=== PATIENT | male | born 1960 | race Caucasian/White ===

== ENCOUNTER → 2017-03-02 | Outpatient (CLI) | payer BC ==
[~2017-03-02] MED LIST: FLUV1INJ6 IM; PARO20TA3 PO; RISP1SS PO; XANA0.25 PO
[2017-03-02 14:48] LABS: ALBUMIN 3.7 GM/DL (3.2-5.2); ALBUMIN/GLOBULIN RATIO 1.32 (1.00-1.93); ALKALINE PHOSPHATASE 75 U/L (45-117); ALT/SGPT 24 U/L (12-78); ANION GAP 5 MEQ/L (8-16); AST/SGOT 18 U/L (15-37); BILIRUBIN,TOTAL 0.6 MG/DL (0.2-1.0); BLOOD UREA NITROGEN 8 MG/DL (7-18); CALCIUM LEVEL 8.8 MG/DL (8.5-10.1); CARBON DIOXIDE LEVEL 32 MEQ/L (21-32); CHLORIDE LEVEL 104 MEQ/L (98-107); CHOLESTEROL LEVEL 193 MG/DL (<200); CREATININE FOR GFR 1.08 MG/DL (0.70-1.30); FREE T4 0.95 NG/DL (0.76-1.46); GLOMERULAR FILTRATION RATE > 60.0 (>56); GLUCOSE, FASTING 96 MG/DL (70-105); POTASSIUM SERUM 4.6 MEQ/L (3.5-5.1); SODIUM LEVEL 141 MEQ/L (136-145); TOTAL PROTEIN 6.5 GM/DL (6.4-8.2); TRIGLYCERIDES LEVEL 122 MG/DL (<150)
== END ==
LOC: M LRY 09:30
PROVIDERS: ATTEND Physician Assistant
DX: Z13.220 Encounter for screening for lipoid disorders (principal); Z13.1 Encounter for screening for diabetes mellitus

== ENCOUNTER → 2017-07-24 | Outpatient (CLI) | payer BC ==
[2017-07-24 17:40] LABS: URIC ACID 3.2 MG/DL (3.5-7.2)
[2017-07-24 17:40] LABS: C REACTIVE PROTEIN QUANTITATIV 0.38 MG/DL (0.00-0.30)
[2017-07-24 18:37] LABS: ERYTHROCYTE SEDIMENTATION RATE 18 mm/hr (0-20)
[2017-07-27 00:06] LABS: Lyme Disease IgG/IgM Antibodie <0.91 ISR (0.00-0.90); Lyme Disease IgM Ab Quantitati <0.80 index (0.00-0.79)
== END ==
LOC: M SMT 14:19
DX: M79.674 Pain in right toe(s) (principal)
CPT/HCPCS: 84550

== ENCOUNTER → 2017-08-12 | Outpatient (CLI) | payer BC ==
[2017-08-12 11:16] LABS: RHEUMATOID FACTOR QUANT 70.3 IU/ML (<15.0)
[2017-08-13 14:13] LABS: ANTINUCLEAR ANTIBODIES DIRECT Negative (Negative)
== END ==
LOC: M SMT 09:13
DX: M25.50 Pain in unspecified joint (principal); M25.40 Effusion, unspecified joint
CPT/HCPCS: 36415

== ENCOUNTER → 2017-12-20 | Outpatient (CLI) | payer BC ==
[2017-12-20 16:41] LABS: BASO # 0.1 10^3/uL (0.0-0.2); BASO % 0.7 % (0.0-1.0); EOS # 0.5 10^3/uL (0.0-0.50); EOS % 6.6 % (0.0-3.0); HEMATOCRIT 37.5 % (42.0-52.0); HEMOGLOBIN 12.7 g/dl (13.5-17.5); IMMATURE GRANULOCYTE % 0.1 % (0-3.0); LYMPH # 1.9 10^3/uL (1.5-4.5); MEAN CORPUSCULAR HEMOGLOBIN 32.2 pg (27.0-33.0); MEAN CORPUSCULAR HGB CONC 33.9 g/dl (32.0-36.5); MEAN CORPUSCULAR VOLUME 94.9 fl (80.0-96.0); MONO # 0.5 10^3/uL (0.0-0.8); MONO % 7.3 % (0.0-5.0); NEUTROPHILS # 4.2 10^3/uL (1.8-7.7); NEUTROPHILS % 59.3 % (36.0-66.0); PLATELET COUNT, AUTOMATED 194 10^3/uL (150-450); RED BLOOD COUNT 3.95 10^6/uL (4.30-6.10); RED CELL DISTRIBUTION WIDTH 13.8 % (11.5-14.5); WHITE BLOOD COUNT 7.2 10^3/uL (4.0-10.0)
[2017-12-20 16:48] LABS: ALBUMIN 3.7 GM/DL (3.2-5.2); ALBUMIN/GLOBULIN RATIO 1.37 (1.00-1.93); ALKALINE PHOSPHATASE 65 U/L (45-117); ALT/SGPT 27 U/L (12-78); ANION GAP 5 MEQ/L (8-16); AST/SGOT 17 U/L (7-37); BILIRUBIN,TOTAL 0.3 MG/DL (0.2-1.0); BLOOD UREA NITROGEN 15 MG/DL (7-18); C REACTIVE PROTEIN QUANTITATIV < 0.30 MG/DL (0.00-0.30); CALCIUM LEVEL 8.4 MG/DL (8.5-10.1); CARBON DIOXIDE LEVEL 29 MEQ/L (21-32); CHLORIDE LEVEL 112 MEQ/L (98-107); CREATININE FOR GFR 1.01 MG/DL (0.70-1.30); GLOMERULAR FILTRATION RATE > 60.0 (>56); GLUCOSE, FASTING 91 MG/DL (70-100); POTASSIUM SERUM 4.3 MEQ/L (3.5-5.1); SODIUM LEVEL 146 MEQ/L (136-145); TOTAL PROTEIN 6.4 GM/DL (6.4-8.2)
== END ==
LOC: M LRY 14:28
DX: M05.79 Rheumatoid arthritis with rheumatoid factor of multiple sites without organ or systems involvement (principal)
CPT/HCPCS: 80053

== ENCOUNTER → 2018-02-11 | Outpatient (CLI) | payer BC ==
[2018-02-11 20:24] LABS: BASO # 0.1 10^3/uL (0.0-0.2); BASO % 0.7 % (0.0-1.0); EOS # 0.4 10^3/uL (0.0-0.50); EOS % 5.6 % (0.0-3.0); HEMATOCRIT 37.5 % (42.0-52.0); HEMOGLOBIN 12.7 g/dl (13.5-17.5); IMMATURE GRANULOCYTE % 0.3 % (0-3.0); LYMPH # 1.9 10^3/uL (1.5-4.5); LYMPH % 25.8 % (24.0-44.0); MEAN CORPUSCULAR HGB CONC 33.9 g/dl (32.0-36.5); MEAN CORPUSCULAR VOLUME 97.4 fl (80.0-96.0); MONO # 0.6 10^3/uL (0.0-0.8); MONO % 8.6 % (0.0-5.0); NEUTROPHILS # 4.4 10^3/uL (1.8-7.7); PLATELET COUNT, AUTOMATED 211 10^3/uL (150-450); RED BLOOD COUNT 3.85 10^6/uL (4.30-6.10); RED CELL DISTRIBUTION WIDTH 13.2 % (11.5-14.5); WHITE BLOOD COUNT 7.5 10^3/uL (4.0-10.0)
[2018-02-11 20:34] LABS: ALBUMIN 3.9 GM/DL (3.2-5.2); ALBUMIN/GLOBULIN RATIO 1.56 (1.00-1.93); ALKALINE PHOSPHATASE 67 U/L (45-117); ALT/SGPT 34 U/L (12-78); ANION GAP 9 MEQ/L (8-16); AST/SGOT 20 U/L (7-37); BILIRUBIN,TOTAL 0.4 MG/DL (0.2-1.0); BLOOD UREA NITROGEN 14 MG/DL (7-18); CALCIUM LEVEL 8.6 MG/DL (8.5-10.1); CARBON DIOXIDE LEVEL 28 MEQ/L (21-32); CHLORIDE LEVEL 105 MEQ/L (98-107); GLOMERULAR FILTRATION RATE > 60.0 (>56); GLUCOSE, FASTING 84 MG/DL (70-100); POTASSIUM SERUM 4.2 MEQ/L (3.5-5.1); SODIUM LEVEL 142 MEQ/L (136-145); TOTAL PROTEIN 6.4 GM/DL (6.4-8.2)
== END ==
LOC: M LRY 16:31
DX: M05.79 Rheumatoid arthritis with rheumatoid factor of multiple sites without organ or systems involvement (principal)
CPT/HCPCS: 80053

== ENCOUNTER → 2018-07-09 | Outpatient (CLI) | payer BC ==
[2018-07-09 12:43] LABS: CHOLESTEROL RISK RATIO 3.955 (<5); FREE T4 0.84 NG/DL (0.76-1.46); THYROID STIMULATING HORMONE 1.17 uIU/ML (0.358-3.740)
[2018-07-10 15:05] LABS: PSA TOTAL 0.6 ng/mL (0.0-4.0)
== END ==
LOC: M LRY 10:03
PROVIDERS: ATTEND Physician Assistant
DX: M05.79 Rheumatoid arthritis with rheumatoid factor of multiple sites without organ or systems involvement (principal); Z13.29 Encounter for screening for other suspected endocrine disorder; Z13.220 Encounter for screening for lipoid disorders; Z12.5 Encounter for screening for malignant neoplasm of prostate

== ENCOUNTER 2018-09-11 12:05 | Emergency (ER) | payer BC ==
[2018-09-11] MEDS ORDERED: FOLI1TAB11 PO (12:19)
[2018-09-11] MEDS ORDERED: METH2.5T48 PO (12:19)
[2018-09-11] MEDS ORDERED: ONDANSETRON 4MG/2ML VIAL (J2405) IV ONE (12:30)
[2018-09-11] MEDS ORDERED: MORPHINE 4 MG/ML 1ML VIAL/SYRINGE (J2270) IV ONE (12:30)
[2018-09-11] MEDS ORDERED: NS 1,000 ML IV ONE (12:30)
[2018-09-11 13:39] LABS: BASO # 0.1 10^3/uL (0.0-0.2); BASO % 0.5 % (0.0-1.0); EOS # 0.3 10^3/uL (0.0-0.50); EOS % 1.7 % (0.0-3.0); HEMATOCRIT 42.1 % (42.0-52.0); HEMOGLOBIN 14.7 g/dl (13.5-17.5); LYMPH # 1.1 10^3/uL (1.5-4.5); MEAN CORPUSCULAR HEMOGLOBIN 32.9 pg (27.0-33.0); MEAN CORPUSCULAR HGB CONC 34.9 g/dl (32.0-36.5); MEAN CORPUSCULAR VOLUME 94.2 fl (80.0-96.0); MONO % 6.5 % (0.0-5.0); NEUTROPHILS % 83.4 % (36.0-66.0); PLATELET COUNT, AUTOMATED 244 10^3/uL (150-450); RED BLOOD COUNT 4.47 10^6/uL (4.30-6.10); WHITE BLOOD COUNT 15.6 10^3/uL (4.0-10.0)
--- NOTE | 2018-09-11 13:40 | REP ---
RIGHT UPPER QUADRANT ULTRASOUND: Real-time sonographic evaluation of the right upper quadrant performed. There are gallstones in the neck of the gallbladder. These are subcentimeter in size. There are multiple stones present. There is no gallbladder wall thickening or pericholecystic fluid. There is no intrahepatic or extrahepatic biliary dilatation, common bile duct measuring 4 mm. Liver demonstrates no mass. Pancreas could not be seen due to overlying bowel gas. Right kidney demonstrates no hydronephrosis with normal size 11.5 cm in length. IMPRESSION: Multiple subcentimeter gallstones in the neck of the gallbladder without gallbladder wall thickening, pericholecystic fluid or biliary dilatation. Electronically Signed by Lonny Mohamud MD 09/11/2018 04:37 P
[2018-09-11 14:09] LABS: ALBUMIN 3.7 GM/DL (3.2-5.2); ALT/SGPT 51 U/L (12-78); BILIRUBIN,DIRECT 0.3 MG/DL (0.0-0.2); BILIRUBIN,TOTAL 0.9 MG/DL (0.2-1.0); BLOOD UREA NITROGEN 18 MG/DL (7-18); CALCIUM LEVEL 8.9 MG/DL (8.5-10.1); CARBON DIOXIDE LEVEL 24 MEQ/L (21-32); CHLORIDE LEVEL 110 MEQ/L (98-107); GLOMERULAR FILTRATION RATE > 60.0 (>56); GLUCOSE, FASTING 103 MG/DL (70-100); LIPASE 210 U/L (73-393); POTASSIUM SERUM 3.6 MEQ/L (3.5-5.1); SODIUM LEVEL 143 MEQ/L (136-145); TOTAL PROTEIN 6.9 GM/DL (6.4-8.2)
[2018-09-11] MEDS ORDERED: ISOVUE-370 76% 100ML VIAL (Q9967) As Ordered ONE (14:21)
--- NOTE | 2018-09-11 14:53 | REP ---
CT abdomen and pelvis with IV but without oral contrast: History: Right-sided abdomen pain. CT contrast dose: 100 mL of intravenous Isovue 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 The lung bases are clear. Spleen is normal size and homogeneous in texture. The gallbladder is mildly distended measuring 8.7 cm. Stones are seen in the gallbladder by ultrasound. Minimally prominent intrahepatic bile ducts. CBD borderline at 0.7 cm. No adrenal lesion is seen. No pancreatic abnormalities observed. There is no evidence of hydronephrosis on either side. The kidneys enhance symmetrically. No ureteral or renal calculi are seen. No retroperitoneal mass or adenopathy is observed. No vascular abnormality is appreciated. A normal appendix is seen coursing posteriorly into the pelvis. No CT evidence to suggest appendicitis. Impression: Mildly dilated gallbladder and borderline CBD. No other significant abnormality. Normal appendix. Electronically Signed by Jose Horton MD 09/11/2018 04:24 P
[2018-09-11 15:26] VITALS: BP 150/67
[2018-09-12] MEDS ORDERED: GLUC1TAB58 PO (12:16)
== END 2018-09-11 16:44 | disposition home or self-care (01) ==
LOC: EDBD 12:05 → M ED 12:05
DX: K80.50 Calculus of bile duct without cholangitis or cholecystitis without obstruction (principal); R11.0 Nausea; M06.9 Rheumatoid arthritis, unspecified; F32.9 Major depressive disorder, single episode, unspecified; F41.9 Anxiety disorder, unspecified; Z79.899 Other long term (current) drug therapy
CPT/HCPCS: 74177; 76705; 80048; 80076; 81001; 83690; 85025; 93041; 96361; 96374; 96375; 99284; J2270; J2405; Q9967

== ENCOUNTER 2018-09-12 09:07 | Inpatient (IN) | payer BC ==
[~2018-09-12] VITALS: Ht 177.8 cm; Wt 85.5 kg
[2018-09-12] MEDS: NS 1,000 ML IV SCH ×3 (02:40→21:00)
[~2018-09-12 09:07] MED LIST changes: +FOLI1TAB11 PO; +METH2.5T48 PO
[2018-09-12] MEDS ORDERED: NS 1,000 ML IV ONE ×2 (09:30→11:45)
[2018-09-12] MEDS ORDERED: MORPHINE 4 MG/ML 1ML VIAL/SYRINGE (J2270) IV ONE (09:30)
[2018-09-12] MEDS ORDERED: ONDANSETRON 4MG/2ML VIAL (J2405) IV ONE (09:30)
[2018-09-12 09:58] LABS: BASO % 0.3 % (0.0-1.0); EOS % 0.3 % (0.0-3.0); HEMATOCRIT 46.6 % (42.0-52.0); HEMOGLOBIN 15.7 g/dl (13.5-17.5); LYMPH # 0.8 10^3/uL (1.5-4.5); LYMPH % 6.2 % (24.0-44.0); MEAN CORPUSCULAR HEMOGLOBIN 32.3 pg (27.0-33.0); MEAN CORPUSCULAR HGB CONC 33.7 g/dl (32.0-36.5); MEAN CORPUSCULAR VOLUME 95.9 fl (80.0-96.0); MONO # 0.5 10^3/uL (0.0-0.8); MONO % 3.7 % (0.0-5.0); NEUTROPHILS # 11.4 10^3/uL (1.8-7.7); PLATELET COUNT, AUTOMATED 258 10^3/uL (150-450); RED BLOOD COUNT 4.86 10^6/uL (4.30-6.10); WHITE BLOOD COUNT 12.8 10^3/uL (4.0-10.0)
[2018-09-12 10:58] LABS: ALBUMIN 3.7 GM/DL (3.2-5.2); ALT/SGPT 503 U/L (12-78); AMYLASE 2433 U/L (25-115); BILIRUBIN,DIRECT 2.9 MG/DL (0.0-0.2); BILIRUBIN,TOTAL 4.7 MG/DL (0.2-1.0); BLOOD UREA NITROGEN 13 MG/DL (7-18); CALCIUM LEVEL 9.2 MG/DL (8.5-10.1); CARBON DIOXIDE LEVEL 29 MEQ/L (21-32); CHLORIDE LEVEL 109 MEQ/L (98-107); GLOMERULAR FILTRATION RATE > 60.0 (>56); GLUCOSE, FASTING 129 MG/DL (70-100); LIPASE 21544 U/L (73-393); POTASSIUM SERUM 4.3 MEQ/L (3.5-5.1); SODIUM LEVEL 144 MEQ/L (136-145); TOTAL PROTEIN 6.8 GM/DL (6.4-8.2)
--- NOTE | 2018-09-12 11:43 | REP ---
RIGHT UPPER QUADRANT ULTRASOUND: Real-time sonographic evaluation of the right upper quadrant performed and compared to prior study of 09/11/2018. Patient is tender at the site of the gallbladder. Once again, there are multiple subcentimeter stones in the region of the neck of the gallbladder. There is no gallbladder wall thickening but there is a tiny amount of free fluid around the neck of the gallbladder. There is no intrahepatic or extrahepatic biliary dilatation, common bile duct measuring 3 mm. Liver demonstrates no gross abnormality. Pancreas is not seen due to overlying bowel gas. Right kidney demonstrates no hydronephrosis with normal size 11.4 cm in length. IMPRESSION: Patient tender at the site of the gallbladder which is moderately distended. Multiple subcentimeter gallstones again seen in the neck of the gallbladder now with trace amount of free fluid around the neck of the gallbladder. No biliary dilatation or wall thickening. Electronically Signed by Lonny Mohamud MD 09/15/2018 01:31 P
[2018-09-12] MEDS ORDERED: CIPROFLOXACIN 400 MG in APPROPRIATE DILUENT 1 EA IV ONE (12:00)
[2018-09-12] MEDS ORDERED: metroNIDAZOLE 500 MG in APPROPRIATE DILUENT 1 EA IV ONE (12:00)
[2018-09-12] MEDS ORDERED: GLUC1TAB58 PO (12:16)
[2018-09-12] MEDS ORDERED: HYDROMORPHONE HCL 0.5 MG/ 0.5 ML SYRINGE (J1170 PER 1) IV ONE (12:45)
[2018-09-12] MEDS ORDERED: MORPHINE 4 MG/ML 1ML VIAL/SYRINGE (J2270) IV PRN ×2 (12:45)
[2018-09-12] MEDS ORDERED: ISOVUE-370 76% 100ML VIAL (Q9967) As Ordered ONE (14:21)
[2018-09-12] MEDS ORDERED: ISOVUE-300 61% 50ML VIAL (Q9967) As Ordered ONE (15:09)
[2018-09-12 15:10] VITALS: BP 150/90
--- NOTE | 2018-09-12 16:02 | REP ---
CT abdomen and pelvis with IV but without oral contrast: History: Pancreatitis. Cholelithiasis. Comparison study: September 11, 2018. 100 mL of intravenous Isovue 370 is administered. 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 The lung bases are clear. The liver and the spleen are normal in size and homogeneous in texture. Gallbladder is similar in size but its wall is mildly thickened diffusely. There is heterogeneous enhancement pattern in the liver parenchyma adjacent to the gallbladder. No adrenal lesion is seen. There is evidence of considerable peripancreatic, retroperitoneal, and paraduodenal streakiness and edema. This extends along the gastrocolic ligament into the pericolonic fat at the level of the transverse colon. There is a small quantity of fluid in the left pericolic gutter. The pancreas tissue enhances homogeneously. There is no evidence of pancreatic necrosis or hemorrhagic change. No abscess or other fluid collection is seen. The edema is all new when compared with yesterday's CT study. No evidence of free air. Pelvic CT images demonstrate a minimal amount of ascitic fluid in the pelvic reflections. Urinary bladder is unremarkable. Prostate calcifications are seen. Study is otherwise negative. Impression: Findings consistent with acute pancreatitis. There is new and moderate peripancreatic, mesenteric, retroperitoneal, pericolonic fat streaking and edema. A small quantity of left pericolic and pelvic ascitic fluid is seen. There is no evidence of pancreatic necrosis or hemorrhagic change. Electronically Signed by Jose Horton MD 09/12/2018 04:57 P
[2018-09-12 16:23] LABS: C REACTIVE PROTEIN QUANTITATIV 1.74 MG/DL (0.00-0.30)
[2018-09-12] MEDS ORDERED: MIDAZOLAM INJ 2 MG/2 ML VIAL (J2250) As Ordered ONE (18:12)
[2018-09-12] MEDS ORDERED: fentaNYL 100 MCG/2 ML INJECTION (J3010) As Ordered ONE ×2 (18:12→19:43)
[2018-09-12] MEDS ORDERED: PROPOFOL 200 MG/20 ML VIAL As Ordered ONE (18:13)
[2018-09-12] MEDS ORDERED: dexameTHASONE 4 MG/ML 1ML VIAL (J1100) As Ordered ONE (18:13)
[2018-09-12] MEDS ORDERED: ROCURONIUM BROMIDE 50 MG/5 ML VIAL As Ordered ONE (18:13)
[2018-09-12] MEDS ORDERED: GLYCOPYRROLATE INJ 0.2 MG/ML 2 ML VIAL As Ordered ONE (18:13)
[2018-09-12] MEDS ORDERED: LIDOCAINE 2% INJ 100 MG/5 ML SDV (FOR ANES.) As Ordered ONE (18:13)
[2018-09-12] MEDS ORDERED: ONDANSETRON 4MG/2ML VIAL (J2405) As Ordered ONE (18:13)
[2018-09-12] MEDS ORDERED: NEOSTIGMINE 10 MG/10 ML VIAL (J2710) As Ordered ONE (18:13)
--- NOTE | 2018-09-12 18:22 | HPEPDOC ---
General Date of Admission Sep 12, 2018 at 12:42 Chief Complaint The patient is a 57-year-old male admitted with a reason for visit of Acute Gal lstone Pancreatitis. History of Present Illness 57-year-old male with past medical history of rheumatoid arthritis and anxiety/depression presents to the ER with a chief complaint of abdominal pain. Of note, the patient had initially presented yesterday afternoon with complaints of right upper quadrant abdominal pain and was found to have gallstones in the neck of the gallbladder without gallbladder wall thickening, pericholecystic fluid, or biliary dilatation. CT of the abdomen and pelvis was noted to be benign. The patient was sent home with a diagnosis of cholelithiasis, and was asked to follow-up with surgery as an outpatient for cholecystectomy. However, the patient returned less than 24 hours later with complaints of worsening abdominal pain which he described as in the right upper quadrant and supraumbilical region spreading in a belt-like distribution with intractable nausea/vomiting. In the ER, the patient was noted to have an elevated lipase level and liver function tests. A CT scan of the abdomen and pelvis this time revealed findings consistent with acute pancreatitis and peripancreatic, mesenteric, retroperitoneal, pericolonic fat streaking and edema. No evidence of pancreatic necrosis or hemorrhage was noted. During this time, the patient has denied any fevers, chills, jaundice, or alteration in mental status. The patient will be admitted to the hospitalist service, a consult has been placed for GI for an ERCP. A consult has also been placed for Gen. surgery for further evaluation of cholecystectomy. Home Medications Scheduled Alprazolam (Xanax) 0.25 Mg Tab, 0.5 MG PO QHS, (Reported) Folic Acid (Folic Acid) 1 Mg Tablet, 1 MG PO DAILY, (Reported) Glucosamine/D3/Boswellia Elvia (Osteo Bi-Flex Tablet) 1 Each Tablet, 2 TAB PO DAILY, (Reported) Methotrexate Sodium (Methotrexate) 2.5 Mg Tablet, 25 MG PO QWEEK, (Reported) FRIDAYS Paroxetine HCl (Paroxetine HCl) 20 Mg Tab, 20 MG PO QHS, (Reported) Allergies Coded Allergies: No Known Allergies (Unverified , 09/11/18) Past Medical History Medical History As noted in HPI. Social History * Smoker: Denies Alcohol: Denies Drugs: denies A-FIB/CHADSVASC A-FIB History Current/History of A-Fib/PAF?: No Review of Systems Other systems 10 point review of systems negative unless otherwise specified in HPI. Physical Examination General Exam: Positive: Alert, Cooperative, Mild Distress (abdominal discomfort) ENT Exam: Positive: Atraumatic, Mucous membr. moist/pink Neck Exam: Negative: JVD Chest Exam: Positive: Clear to auscultation, Normal air movement Heart Exam: Positive: Rate Normal, Normal S1, Normal S2 Abdomen Exam: Positive: Soft, Tenderness (mild tenderness to deep palpation in the right upper quadrant region and supraumbilical region with bilateral distribution in a belt-like fashion. No rebound tenderness, guarding, or rigidity noted.) Extremity Exam: Negative: Tenderness, Swelling Psych Exam: Positive: Oriented x 3 Vital Signs Vital Signs Date Time Temp Pulse Resp B/P (MAP) Pulse Ox O2 Delivery O2 Flow Rate FiO2 09/12/18 15:10 97.3 51 18 150/90 (110) 97 09/12/18 14:51 Room Air Laboratory Data Labs 24H Laboratory Tests 2 09/12/18 09:30: Immature Granulocyte % (Auto) 0.5, White Blood Count 12.8H, Red Blood Count 4.86, Hemoglobin 15.7, Hematocrit 46.6, Mean Corpuscular Volume 95.9, Mean Corpuscular Hemoglobin 32.3, Mean Corpuscular Hemoglobin Concent 33.7, Red Cell Distribution Width 13.6, Platelet Count 258, Neutrophils (%) (Auto) 89.0H, Lymphocytes (%) (Auto) 6.2L, Monocytes (%) (Auto) 3.7, Eosinophils (%) (Auto) 0.3, Basophils (%) (Auto) 0.3, Neutrophils # (Auto) 11.4H, Lymphocytes # (Auto) 0.8L, Monocytes # (Auto) 0.5, Eosinophils # (Auto) 0.0, Basophils # (Auto) 0.0, Nucleated Red Blood Cells % (auto) 0.0, Anion Gap 6L, Glomerular Filtration Rate > 60.0, Calcium Level 9.2, Aspartate Amino Transf (AST/SGOT) 504H, Alanine Aminotransferase (ALT/SGPT) 503H, Alkaline Phosphatase 100, Total Bilirubin 4.7#H, Direct Bilirubin 2.9H, C-Reactive Protein, Quantitative 1.74H, Total Protein 6.8, Albumin 3.7, Albumin/Globulin Ratio 1.19, Amylase Level 2433H, Lipase 34564G CBC/BMP Laboratory Tests 09/12/18 09:30 Red Blood Count 4.86, Mean Corpuscular Volume 95.9, Mean Corpuscular Hemoglobin 32.3, Mean Corpuscular Hemoglobin Concent 33.7, Red Cell Distribution Width 13.6, Neutrophils (%) (Auto) 89.0 H, Lymphocytes (%) (Auto) 6.2 L, Monocytes (%) (Auto) 3.7, Eosinophils (%) (Auto) 0.3, Basophils (%) (Auto) 0.3, Neutrophils # (Auto) 11.4 H, Lymphocytes # (Auto) 0.8 L, Monocytes # (Auto) 0.5, Eosinophils # (Auto) 0.0, Basophils # (Auto) 0.0 Plan / VTE VTE Prophylaxis Ordered?: Yes Plan Plan Acute Gallstone Pancreatitis CT Abd/Pel noted We will keep the patient NPO IVF Hydration Antiemetic and Analgesic therapy ordered GI/Gen Surg on board We will cont to monitor Elevated LFTs GI consulted to r/o choledocholithiasis Patient does not have signs or symptoms consistent with cholangitis at this time However, we will cover him with Cipro/Flagyl He is scheduled to have an ERCP done with GI this afternoon Repeat CMP in the AM Cholecystitis U/S of the Gallbladder notable for fluid accumulating around the neck of the GB Cont Abx as noted above Gen Surg consulted for evaluation of cholecystectomy Leukocytosis 2/2 Above Cont mgmt as delineated above DVT Prophylaxis Heparin KENDAL GILL MD Sep 12, 2018 18:22
[2018-09-12] MEDS ORDERED: ePHEDrine SULFATE 25 MG/5 ML(5MG/ML) SYRINGE As Ordered ONE (18:56)
[2018-09-12] MEDS ORDERED: SUGAMMADEX SODIUM 500 MG/5 ML VIAL (BRIDION) As Ordered ONE (18:59)
[2018-09-12] MEDS ORDERED: PHENYLephrine HCL 500 MCG/5 ML (100MCG/ML) SYRINGE (J2370) As Ordered ONE (19:03)
--- NOTE | 2018-09-12 20:11 | ROOR ---
Patient Name: Lonny Rothman Procedure Date: 09/12/2018 3:14 PM Date of : 1960 Age: 57 Room: Main OR Gender: Male Note Status: Finalized Procedure: ERCP Indications: Biliary dilation on Ultrasound, Suspected bile duct stone(s), Suspected ascending cholangitis, Jaundice, Gallstone associated acute pancreatitis Providers: John ADLER MD Referring MD: 2. Inpatient 2. Inpatient Requesting Provider: Medicines: General Anesthesia Complications: No immediate complications. Procedure: Pre-Anesthesia Assessment: - The heart rate, respiratory rate, oxygen saturations, blood pressure, adequacy of pulmonary ventilation, and response to care were monitored throughout the procedure. The Duodenoscope was introduced through the mouth, and advanced to the duodenum and used to inject contrast into the bile duct and ventral pancreatic duct. The ERCP was accomplished without difficulty. The patient tolerated the procedure well. Findings: The health plan specialist film was normal. The esophagus was successfully intubated under direct vision. The scope was advanced to a normal major papilla in the descending duodenum without detailed examination of the pharynx, larynx and associated structures, and upper GI tract. The upper GI tract was grossly normal. Was passed into the ventral pancreatic duct. The ventral pancreatic duct was then injected with contrast. I personally interpreted the pancreatic duct images. Ductal flow of contrast was adequate. Image quality was adequate. Contrast extended to the mid pancreatic duct. A wire was passed into the biliary tree. The bile duct was then deeply cannulated over the guidewire. Contrast was injected. Opacification of the entire biliary tree except for the gallbladder was successful. The maximum diameter of the ducts was 9 mm. The lower third of the main bile duct contained two stones, the largest of which was 7 mm in diameter. An 8 mm biliary sphincterotomy was made with a monofilament traction (standard) sphincterotome using ERBE electrocautery. There was no post-sphincterotomy bleeding. The biliary tree was swept with a 9 mm balloon starting at the bifurcation. All stones were removed. One 3 Fr by 2.5 cm temporary stent with a 3/4 external pigtail and no internal flaps was placed into the ventral pancreatic duct. Clear fluid flowed through the stent. The stent was in good position. Impression: - Choledocholithiasis was found. Complete removal was accomplished by biliary sphincterotomy and balloon extraction. - A biliary sphincterotomy was performed. - The biliary tree was swept. - One temporary stent was placed into the ventral pancreatic duct. Recommendation: - Observe patient's clinical course. - Observe patient's clinical course following today's ERCP with therapeutic intervention. - Confirm spontaneous stent passage by performing a KUB x-ray in 1 month. - Return to my office at appointment to be scheduled. John Adler MD John ADLER MD 09/12/2018 8:11:30 PM Electronically signed by John ADLER MD Number of Addenda: 0 Note Initiated On: 09/12/2018 3:14 PM Estimated Blood Loss: Estimated blood loss: none.
[2018-09-12] MEDS ORDERED: ONDANSETRON 4MG/2ML VIAL (J2405) IV PRN (20:30)
[2018-09-12] MEDS ORDERED: METOCLOPRAMIDE INJ 10MG/2ML VIAL (J2765) IV PRN (20:30)
[2018-09-12] MEDS ORDERED: LR 1,000 ML IV SCH (20:30)
[2018-09-12] MEDS ORDERED: PERCOCET 5MG/325MG TAB PO PRN (20:30)
[2018-09-12] MEDS ORDERED: fentaNYL 100 MCG/2 ML INJECTION (J3010) IV PRN (20:30)
[2018-09-12 21:00] VITALS: BP 145/75
[2018-09-12 21:30] VITALS: BP 143/77
[2018-09-12] MEDS: metroNIDAZOLE 500 MG in APPROPRIATE DILUENT 1 EA IV SCH (22:00)
[2018-09-12] MEDS: HEPARIN SOD (PORCINE) 5000 UNITS/ML VIAL SQ SCH (22:42)
[2018-09-12 22:55] VITALS: BP 155/82
[2018-09-13] VITALS: BP 143/84
[2018-09-13] MEDS: NS 1,000 ML IV SCH ×4 (03:45→16:37)
[2018-09-13 04:00] VITALS: BP 144/72
[2018-09-13 05:32] LABS: HEMATOCRIT 38.5 % (42.0-52.0); MEAN CORPUSCULAR HEMOGLOBIN 32.6 pg (27.0-33.0); MEAN CORPUSCULAR HGB CONC 33.2 g/dl (32.0-36.5); PLATELET COUNT, AUTOMATED 212 10^3/uL (150-450); RED BLOOD COUNT 3.93 10^6/uL (4.30-6.10); WHITE BLOOD COUNT 17.4 10^3/uL (4.0-10.0)
[2018-09-13 05:46] LABS: HEMOGLOBIN 12.8 g/dl (13.5-17.5)
[2018-09-13 06:04] LABS: ALT/SGPT 307 U/L (12-78); BILIRUBIN,TOTAL 1.2 MG/DL (0.2-1.0); BLOOD UREA NITROGEN 10 MG/DL (7-18); C REACTIVE PROTEIN QUANTITATIV 7.25 MG/DL (0.00-0.30); CALCIUM LEVEL 7.6 MG/DL (8.5-10.1); CARBON DIOXIDE LEVEL 26 MEQ/L (21-32); CHLORIDE LEVEL 112 MEQ/L (98-107); CREATININE FOR GFR 0.97 MG/DL (0.70-1.30); GLOMERULAR FILTRATION RATE > 60.0 (>56); GLUCOSE, FASTING 119 MG/DL (70-100); LIPASE 5806 U/L (73-393); MAGNESIUM LEVEL 1.8 MG/DL (1.8-2.4); POTASSIUM SERUM 4.2 MEQ/L (3.5-5.1); SODIUM LEVEL 142 MEQ/L (136-145); TOTAL PROTEIN 5.9 GM/DL (6.4-8.2)
[2018-09-13] MEDS: HEPARIN SOD (PORCINE) 5000 UNITS/ML VIAL SQ SCH ×3 (06:10→20:56)
[2018-09-13] MEDS: metroNIDAZOLE 500 MG in APPROPRIATE DILUENT 1 EA IV SCH ×3 (06:10→20:55)
[2018-09-13 08:00] VITALS: BP 121/66
--- NOTE | 2018-09-13 11:03 | IPNPDOC ---
Subjective Date Seen The patient was seen on 09/13/18. Subjective Chief Complaint/HPI Patient seen and examined at the bedside. Reports that he is feeling better today and that his abdominal pain has improved. He notes tolerating breakfast this AM on a clear liquid diet w/o any acute c/o N/V/D. Objective Physical Examination General Exam: Positive: Alert, Cooperative, No Acute Distress ENT Exam: Positive: Atraumatic, Mucous membr. moist/pink Neck Exam: Negative: JVD Chest Exam: Positive: Clear to auscultation, Normal air movement Heart Exam: Positive: Rate Normal, Normal S1, Normal S2 Abdomen Exam: Positive: Soft, Tenderness (mild tenderness to deep palpation in the supraumbilical region with bilateral distribution in a belt-like fashion---improving. No rebound tenderness, guarding, or rigidity noted.) Extremity Exam: Negative: Tenderness, Swelling Psych Exam: Positive: Oriented x 3 Assessment /Plan Plan/VTE VTE Prophylaxis Ordered?: Yes Plan Acute Gallstone Pancreatitis CT Abd/Pel noted from admission s/p ERCP intervention on 09/12/18 Abd pain improved this AM, and patient has been started on a diet Lipase downward trending We will cont to monitor Elevated LFTs GI consulted to r/o choledocholithiasis--s/p ERCP on 09/12 with biliary sphincterotomy, balloon extraction of stones, pancreatic duct stent placement LFTs trending downward this morning We will cont to monitor Cholecystitis U/S of the Gallbladder notable for fluid accumulating around the neck of the GB CT Abd/Pel noted Cont Cipro/Flagyl for a total of 7 days Gen Surg consulted for evaluation of cholecystectomy---recommends cholecystectomy in a few weeks. F/U as outpatient WBC increased from overnight--this is likely 2/2 intervention yesterday, as the patient does appear to be doing much better clinically today. We will advance the patient's diet as tolerated Leukocytosis 2/2 Above Cont mgmt as delineated above DVT Prophylaxis Heparin SC Dispo--pending continued clinical improvement. VS, I&O, 24H, Fishbone Vital Signs/I&O Vital Signs Date Time Temp Pulse Resp B/P (MAP) Pulse Ox O2 Delivery O2 Flow Rate FiO2 09/13/18 08:00 99.2 54 18 121/66 (84) 93 09/12/18 14:51 Room Air I&O- Last 24 Hours up to 6 AM 09/13/18 06:00 Intake Total 5727 ml Output Total 275 ml Balance 5452 ml Laboratory Data 24H LABS Laboratory Tests 2 09/13/18 05:04: Nucleated Red Blood Cells % (auto) 0.0, Anion Gap 4L, Glomerular Filtration Rate > 60.0, Blood Urea Nitrogen 10, Creatinine 0.97, Sodium Level 142, Potassium Level 4.2, Chloride Level 112H, Carbon Dioxide Level 26, Calcium Level 7.6#L, Aspartate Amino Transf (AST/SGOT) 163H, Alanine Aminotransferase (ALT/SGPT) 307H, Alkaline Phosphatase 85, Total Bilirubin 1.2#H, Total Protein 5.9L, Albumin 3.0L, Magnesium Level 1.8, C-Reactive Protein, Quantitative 7.25H, Albumin/Globulin Ratio 1.03, Lipase 5806H CBC/BMP Laboratory Tests 09/13/18 05:04 Red Blood Count 3.93 L, Mean Corpuscular Volume 98.0 H, Mean Corpuscular Hemoglobin 32.6, Mean Corpuscular Hemoglobin Concent 33.2, Red Cell Distribution Width 13.5, Calcium Level 7.6 #L, Aspartate Amino Transf (AST/SGOT) 163 H, Alanine Aminotransferase (ALT/SGPT) 307 H, Alkaline Phosphatase 85, Total Bilirubin 1.2 #H, Total Protein 5.9 L, Albumin 3.0 L KENDAL REYNA MD Sep 13, 2018 11:03
[2018-09-13] MEDS: CIPROFLOXACIN 400 MG in APPROPRIATE DILUENT 1 EA IV SCH ×3 (11:33)
[2018-09-13 12:00] VITALS: BP 164/60
[2018-09-13] MEDS: ACETAMINOPHEN TAB 650MG DOSE (2X325MG) PO PRN ×2 (12:09→20:56)
[2018-09-13 20:00] VITALS: BP 152/72
[2018-09-13] MEDS: ONDANSETRON 4MG/2ML VIAL (J2405) IV PRN (21:21)
[2018-09-14] VITALS: BP 161/77
[2018-09-14] MEDS: CIPROFLOXACIN 400 MG in APPROPRIATE DILUENT 1 EA IV SCH ×3 (00:50→23:56)
[2018-09-14 04:00] VITALS: BP 160/80
[2018-09-14] MEDS: HEPARIN SOD (PORCINE) 5000 UNITS/ML VIAL SQ SCH ×3 (05:35→21:48)
[2018-09-14] MEDS: metroNIDAZOLE 500 MG in APPROPRIATE DILUENT 1 EA IV SCH ×3 (05:35→21:48)
[2018-09-14 05:55] LABS: HEMATOCRIT 36.6 % (42.0-52.0); HEMOGLOBIN 12.1 g/dl (13.5-17.5); MEAN CORPUSCULAR HEMOGLOBIN 32.3 pg (27.0-33.0); MEAN CORPUSCULAR HGB CONC 33.1 g/dl (32.0-36.5); MEAN CORPUSCULAR VOLUME 97.6 fl (80.0-96.0); PLATELET COUNT, AUTOMATED 173 10^3/uL (150-450); RED BLOOD COUNT 3.75 10^6/uL (4.30-6.10); WHITE BLOOD COUNT 14.9 10^3/uL (4.0-10.0)
[2018-09-14 06:12] LABS: ALT/SGPT 290 U/L (12-78); BILIRUBIN,TOTAL 1.8 MG/DL (0.2-1.0); BLOOD UREA NITROGEN 10 MG/DL (7-18); C REACTIVE PROTEIN QUANTITATIV 7.76 MG/DL (0.00-0.30); CALCIUM LEVEL 7.9 MG/DL (8.5-10.1); CARBON DIOXIDE LEVEL 26 MEQ/L (21-32); CHLORIDE LEVEL 110 MEQ/L (98-107); CREATININE FOR GFR 0.95 MG/DL (0.70-1.30); GLOMERULAR FILTRATION RATE > 60.0 (>56); GLUCOSE, FASTING 104 MG/DL (70-100); POTASSIUM SERUM 3.7 MEQ/L (3.5-5.1); SODIUM LEVEL 141 MEQ/L (136-145); TOTAL PROTEIN 5.9 GM/DL (6.4-8.2)
[2018-09-14] MEDS: ACETAMINOPHEN TAB 650MG DOSE (2X325MG) PO PRN (06:33)
[2018-09-14 08:00] VITALS: BP 162/82
[2018-09-14 12:00] VITALS: BP 158/80
[2018-09-14] MEDS: ONDANSETRON 4MG/2ML VIAL (J2405) IV PRN (12:53)
[2018-09-14] MEDS: KETOROLAC 30 MG/ML VIAL (J1885) IV PRN ×2 (13:00→20:02)
--- NOTE | 2018-09-14 13:38 | IPNPDOC ---
Subjective Date Seen The patient was seen on 09/14/18. Subjective Chief Complaint/HPI Patient seen and examined at bedside. Reports that his abdominal pain and nausea is slowly improving. Denies any acute overnight events. Objective Physical Examination General Exam: Positive: Alert, Cooperative, No Acute Distress ENT Exam: Positive: Atraumatic, Mucous membr. moist/pink Neck Exam: Negative: JVD Chest Exam: Positive: Clear to auscultation, Normal air movement Heart Exam: Positive: Rate Normal, Normal S1, Normal S2 Abdomen Exam: Positive: Soft, Tenderness (mild tenderness to deep palpation in the supraumbilical region with bilateral distribution in a belt-like fashion- --improving. No rebound tenderness, guarding, or rigidity noted.) Extremity Exam: Negative: Tenderness, Swelling Psych Exam: Positive: Oriented x 3 Assessment /Plan Plan/VTE VTE Prophylaxis Ordered?: Yes Plan Acute Gallstone Pancreatitis CT Abd/Pel noted from admission s/p ERCP intervention on 09/12/18 Abd pain continues to slowly improve this AM, and patient's diet has been advanced We will cont to monitor Elevated LFTs GI consulted to r/o choledocholithiasis--s/p ERCP on 09/12 with biliary sphincterotomy, balloon extraction of stones, pancreatic duct stent placement LFTs trending downward this morning We will cont to monitor Cholecystitis U/S of the Gallbladder notable for fluid accumulating around the neck of the GB CT Abd/Pel noted Cont Cipro/Flagyl for a total of 7 days Gen Surg consulted for evaluation of cholecystectomy---recommends cholecystectomy in a few weeks. F/U as outpatient WBC downward trending. We will advance the patient's diet as tolerated Leukocytosis 2/2 Above Cont mgmt as delineated above DVT Prophylaxis Heparin SC Dispo--pending continued clinical improvement VS, I&O, 24H, Fishbone Vital Signs/I&O Vital Signs Date Time Temp Pulse Resp B/P (MAP) Pulse Ox O2 Delivery O2 Flow Rate FiO2 09/14/18 12:00 98.7 78 18 158/80 (106) 94 09/12/18 14:51 Room Air I&O- Last 24 Hours up to 6 AM 09/14/18 06:00 Intake Total 6230 ml Output Total 200 ml Balance 6030 ml Laboratory Data 24H LABS Laboratory Tests 2 09/14/18 05:30: Nucleated Red Blood Cells % (auto) 0.0, Anion Gap 5L, Glomerular Filtration Rate > 60.0, Blood Urea Nitrogen 10, Creatinine 0.95, Sodium Level 141, Potassium Level 3.7, Chloride Level 110H, Carbon Dioxide Level 26, Calcium Level 7.9L, Aspartate Amino Transf (AST/SGOT) 161H, Alanine Aminotransferase (ALT/SGPT) 290H, Alkaline Phosphatase 107, Total Bilirubin 1.8H, Total Protein 5.9L, Albumin 3.0L, C-Reactive Protein, Quantitative 7.76H, Albumin/Globulin Ratio 1.03 CBC/BMP Laboratory Tests 09/14/18 05:30 Red Blood Count 3.75 L, Mean Corpuscular Volume 97.6 H, Mean Corpuscular Hemoglobin 32.3, Mean Corpuscular Hemoglobin Concent 33.1, Red Cell Distribution Width 13.7, Calcium Level 7.9 L, Aspartate Amino Transf (AST/SGOT) 161 H, Alanine Aminotransferase (ALT/SGPT) 290 H, Alkaline Phosphatase 107, Total Bilirubin 1.8 H, Total Protein 5.9 L, Albumin 3.0 L KENDAL REYNA MD Sep 14, 2018 13:38
[2018-09-14 16:00] VITALS: BP 158/78
[2018-09-14 20:00] VITALS: BP 160/66
[2018-09-15] VITALS (7 sets, daily range): BP systolic 130–178; BP diastolic 59–78
[2018-09-15] MEDS: KETOROLAC 30 MG/ML VIAL (J1885) IV PRN ×3 (03:29→22:00)
[2018-09-15] MEDS: ACETAMINOPHEN TAB 650MG DOSE (2X325MG) PO PRN ×2 (04:42→18:54)
[2018-09-15] MEDS ORDERED: ALPRAZolam 0.5 MG TAB PO ONE ×2 (05:00→21:00)
[2018-09-15] MEDS: metroNIDAZOLE 500 MG in APPROPRIATE DILUENT 1 EA IV SCH ×3 (05:03→22:01)
[2018-09-15] MEDS: HEPARIN SOD (PORCINE) 5000 UNITS/ML VIAL SQ SCH ×3 (05:04→22:00)
[2018-09-15 05:18] LABS: HEMATOCRIT 32.5 % (42.0-52.0); HEMOGLOBIN 10.9 g/dl (13.5-17.5); MEAN CORPUSCULAR HEMOGLOBIN 32.2 pg (27.0-33.0); MEAN CORPUSCULAR HGB CONC 33.5 g/dl (32.0-36.5); MEAN CORPUSCULAR VOLUME 95.9 fl (80.0-96.0); PLATELET COUNT, AUTOMATED 172 10^3/uL (150-450); RED BLOOD COUNT 3.39 10^6/uL (4.30-6.10); WHITE BLOOD COUNT 15.7 10^3/uL (4.0-10.0)
[2018-09-15 05:43] LABS: ALBUMIN 2.4 GM/DL (3.2-5.2); ALT/SGPT 195 U/L (12-78); BILIRUBIN,TOTAL 1.4 MG/DL (0.2-1.0); BLOOD UREA NITROGEN 13 MG/DL (7-18); CALCIUM LEVEL 7.8 MG/DL (8.5-10.1); CARBON DIOXIDE LEVEL 28 MEQ/L (21-32); CHLORIDE LEVEL 108 MEQ/L (98-107); GLOMERULAR FILTRATION RATE > 60.0 (>56); GLUCOSE, FASTING 109 MG/DL (70-100); LIPASE 148 U/L (73-393); POTASSIUM SERUM 3.3 MEQ/L (3.5-5.1); SODIUM LEVEL 142 MEQ/L (136-145); TOTAL PROTEIN 5.6 GM/DL (6.4-8.2)
[2018-09-15] MEDS ORDERED: POTASSIUM CHLORIDE 10 MEQ SR TABLET PO ONE (08:00)
--- NOTE | 2018-09-15 08:31 | REP ---
ERCP OR: HISTORY: Gallstones. Eighty radiographs were obtained with a C-arm. Sequential images demonstrate contrast material in the common bile duct and biliary system. There are no definite filling defects. A small amount of contrast material is present in the abdomen. Fluoro time 5 minutes 5 seconds. IMPRESSION: ERCP as described above. Electronically Signed by Colin Ashley MD 09/15/2018 08:49 A
--- NOTE | 2018-09-15 11:49 | IPNPDOC ---
Subjective Date Seen The patient was seen on 09/15/18. Subjective Chief Complaint/HPI Patient seen and examined at the bedside. He reports that he is feeling better overall, but still does have some persistent nausea and abdominal pain. Denies any vomiting, and notes that he has yet to have a bowel movement but is passing flatus. Denies any other acute overnight events. Objective Physical Examination General Exam: Positive: Alert, Cooperative, No Acute Distress ENT Exam: Positive: Atraumatic, Mucous membr. moist/pink Neck Exam: Negative: JVD Chest Exam: Positive: Clear to auscultation, Normal air movement Heart Exam: Positive: Rate Normal, Normal S1, Normal S2 Abdomen Exam: Positive: Soft, Tenderness (mild tenderness to deep palpation in the supraumbilical region with bilateral distribution in a belt-like fashion---improving. No rebound tenderness, guarding, or rigidity noted.) Extremity Exam: Negative: Tenderness, Swelling Psych Exam: Positive: Oriented x 3 A-FIB/CHADSVASC A-FIB History Current/History of A-Fib/PAF?: No Assessment /Plan Plan/VTE VTE Prophylaxis Ordered?: Yes Plan Acute Gallstone Pancreatitis CT Abd/Pel noted from admission s/p ERCP intervention on 09/12/18 Abd pain continues to slowly improve this AM, and patient's diet has been advanced Lipase has normalized, however WBC remains elevated We will cont to monitor Elevated LFTs GI consulted to r/o choledocholithiasis--s/p ERCP on 09/12 with biliary sphincterotomy, balloon extraction of stones, pancreatic duct stent placement LFTs trending downward this morning We will cont to monitor Cholecystitis U/S of the Gallbladder notable for fluid accumulating around the neck of the GB CT Abd/Pel noted Cont Cipro/Flagyl for a total of 7 days Gen Surg consulted for evaluation of cholecystectomy---recommends cholecystectomy in a few weeks. F/U as outpatient WBC still elevated, will cont to trend We will advance the patient's diet as tolerated Leukocytosis 2/2 Above Cont mgmt as delineated above DVT Prophylaxis Heparin SC Dispo--pending continued clinical improvement VS, I&O, 24H, Fishbone Vital Signs/I&O Vital Signs Date Time Temp Pulse Resp B/P (MAP) Pulse Ox O2 Delivery O2 Flow Rate FiO2 09/15/18 08:00 96.9 69 18 130/76 (94) 96 09/12/18 14:51 Room Air I&O- Last 24 Hours up to 6 AM 09/15/18 06:00 Intake Total 2031 ml Output Total 905 ml Balance 1126 ml Laboratory Data 24H LABS Laboratory Tests 2 09/15/18 04:54: Nucleated Red Blood Cells % (auto) 0.0, Anion Gap 6L, Glomerular Filtration Rate > 60.0, Blood Urea Nitrogen 13, Creatinine 0.90, Sodium Level 142, Potassium Level 3.3L, Chloride Level 108H, Carbon Dioxide Level 28, Calcium Level 7.8L, Aspartate Amino Transf (AST/SGOT) 74H, Alanine Aminotransferase (ALT/SGPT) 195H, Alkaline Phosphatase 108, Total Bilirubin 1.4H, Total Protein 5.6L, Albumin 2.4L, Albumin/Globulin Ratio 0.75L, Lipase 148 CBC/BMP Laboratory Tests 09/15/18 04:54 Red Blood Count 3.39 L, Mean Corpuscular Volume 95.9, Mean Corpuscular Hemoglobin 32.2, Mean Corpuscular Hemoglobin Concent 33.5, Red Cell Distribution Width 13.6, Calcium Level 7.8 L, Aspartate Amino Transf (AST/SGOT) 74 H, Alanine Aminotransferase (ALT/SGPT) 195 H, Alkaline Phosphatase 108, Total Bilirubin 1.4 H, Total Protein 5.6 L, Albumin 2.4 L KENDAL REYNA MD Sep 15, 2018 11:49
[2018-09-15] MEDS: CIPROFLOXACIN 400 MG in APPROPRIATE DILUENT 1 EA IV SCH ×2 (12:58→23:35)
[2018-09-16 04:00] VITALS: BP 131/66
--- NOTE | 2018-09-16 05:35 | CR ---
DATE OF CONSULTATION: 09/13/2018 REASON FOR CONSULTATION: Gallstone pancreatitis. HISTORY OF PRESENT ILLNESS: The patient is a 57 year-old male who came into the emergency room on the with abdominal pain. He was found to have cholelithiasis. He was discharged home and was supposed to followup with Dr. Dejesus as an outpatient to have surgery scheduled. Overnight his abdominal pain got significantly worse and was not improving so he came back into emergency room and was found to have significant increase in all of his enzymes showing concern for choledocholithiasis as well as gallstone pancreatitis. He was admitted to medicine service and gastrointestinal (GI) evaluated him and took him to the operating room for an endoscopic retrograde cholangiopancreatography (ERCP) where they did find stones, as well as a little bit of pus inside of the common bile duct. This morning he is still having significant pains mainly in the epigastric area radiating to the back, nothing in the right upper quadrant. No nausea or vomiting. No fevers or chills. He has never had any symptoms like this prior to the last couple of days. No recent trauma. No changes in diet or medications. PAST MEDICAL HISTORY: 1. Rheumatoid arthritis. 2. Anxiety. 3. Depression. PAST SURGICAL HISTORY: None. ALLERGIES: None. HOME MEDICATIONS: - Xanax - folic acid - methotrexate - paroxetine SOCIAL HISTORY: Denies drug, alcohol, tobacco abuse. FAMILY HISTORY: Noncontributory. REVIEW OF SYSTEMS: Per positives in history of present illness (HPI). PHYSICAL EXAMINATION: GENERAL: Awake, alert and oriented times three. No acute distress. VITAL SIGNS: Temperature 97.4, pulse 51, respirations 19, blood pressure 164/60, pulse ox 100% room air. HEENT: Pupils equally round react to light accommodation. HEART: S1-S2 regular rate and rhythm. LUNGS: Clear auscultation bilaterally. ABDOMEN: Soft, tender to palpation epigastric, no rebound or guarding. No ventral hernias. EXTREMITIES: No clubbing, cyanosis or edema. LABORATORY DATA: White count 12.8 on admission up to 17.4 this morning, hemoglobin 12.8, potassium 4.2, total bilirubin 4.7 down to 1.2 today, AST 504 down to 163, ALT 503 down to 307, lipase was 21,544 on admission down to 5806 today. IMAGING STUDIES: Ultrasound of the gallbladder showed a distended gallbladder with multiple sub centimeter gallstones seen in the neck of the gallbladder, trace amount of fluid around the neck, with the common bile duct measuring 3 mm. He also had an CT abdomen and pelvis that shows findings consistent with acute pancreatitis. There is new peripancreatic mesentery retroperitoneal pericolonic fat streaking and edema, small quantity of left pericolic and pelvic acidic fluid is also seen. There is no evidence for pancreatic necrosis or hemorrhage is identified. ASSESSMENT/PLAN: The patient is a 57-year-old male with significant gallstone pancreatitis and likely choledocholithiasis. He has already undergone an endoscopic retrograde cholangiopancreatography (ERCP) with a stent placement and he is starting to feel somewhat improved. Due to the significant inflammation and swelling at this point the recommendation is to hold off on surgery for least a couple of weeks to give it some time to cool off. He can be discharged here once his pain is improved and he is tolerating a diet. He will go home with oral antibiotics to finish out a weeks course. He can continue to follow up with Dr. Dejesus as an outpatient or myself whichever he chooses.
[2018-09-16] MEDS: HEPARIN SOD (PORCINE) 5000 UNITS/ML VIAL SQ SCH (06:00)
[2018-09-16] MEDS: metroNIDAZOLE 500 MG in APPROPRIATE DILUENT 1 EA IV SCH (06:00)
[2018-09-16 06:16] LABS: HEMATOCRIT 32.9 % (42.0-52.0); HEMOGLOBIN 10.7 g/dl (13.5-17.5); MEAN CORPUSCULAR HEMOGLOBIN 32.1 pg (27.0-33.0); MEAN CORPUSCULAR HGB CONC 32.5 g/dl (32.0-36.5); MEAN CORPUSCULAR VOLUME 98.8 fl (80.0-96.0); PLATELET COUNT, AUTOMATED 177 10^3/uL (150-450); RED BLOOD COUNT 3.33 10^6/uL (4.30-6.10); WHITE BLOOD COUNT 12.1 10^3/uL (4.0-10.0)
[2018-09-16 06:41] LABS: ALBUMIN 2.4 GM/DL (3.2-5.2); ALT/SGPT 138 U/L (12-78); BILIRUBIN,TOTAL 0.8 MG/DL (0.2-1.0); BLOOD UREA NITROGEN 18 MG/DL (7-18); CARBON DIOXIDE LEVEL 30 MEQ/L (21-32); CHLORIDE LEVEL 109 MEQ/L (98-107); CREATININE FOR GFR 0.94 MG/DL (0.70-1.30); GLOMERULAR FILTRATION RATE > 60.0 (>56); GLUCOSE, FASTING 90 MG/DL (70-100); POTASSIUM SERUM 3.6 MEQ/L (3.5-5.1); SODIUM LEVEL 144 MEQ/L (136-145); TOTAL PROTEIN 5.5 GM/DL (6.4-8.2)
[2018-09-16 08:00] VITALS: BP 174/79
[2018-09-16] MEDS: ACETAMINOPHEN TAB 650MG DOSE (2X325MG) PO PRN (08:15)
[2018-09-16] MEDS ORDERED: CIPR-249 PO (10:07)
[2018-09-16] MEDS ORDERED: FLAG500T PO (10:07)
[2018-09-16 12:00] VITALS: BP 164/74
--- NOTE | 2018-09-16 14:30 | DS.PDOC ---
Discharge Summary General Date of Admission Sep 12, 2018 at 12:42 Date of Discharge 09/16/18 Specialist/Consultants Involve Dr. Story of General Surgery, Dr. Adler of GI Discharge Summary PROCEDURES PERFORMED DURING STAY: ERCP on 09/12/[address] Adler of GI ADMITTING/DISCHARGE DIAGNOSES: Acute gallstone pancreatitis Choledocholithiasis Elevated liver function tests Cholecystitis Leukocytosis History of anxiety History of rheumatoid arthritis COMPLICATIONS/CHIEF COMPLAINT: Acute Gallstone Pancreatitis. HISTORY OF PRESENT ILLNESS: . 57-year-old male with past medical history of rheumatoid arthritis and anxiety/depression presents to the ER with a chief complaint of abdominal pain. Of note, the patient had initially presented 09/11 afternoon with complaints of right upper quadrant abdominal pain and was found to have gallstones in the neck of the gallbladder without gallbladder wall thickening, pericholecystic fluid, or biliary dilatation. CT of the abdomen and pelvis was noted to be benign. The patient was sent home with a diagnosis of cholelithiasis, and was asked to follow-up with surgery as an outpatient for cholecystectomy. However, the patient returned less than 24 hours later with complaints of worsening abdominal pain which he described as in the right upper quadrant and supraumbilical region spreading in a belt-like distribution with intractable nausea/vomiting. In the ER, the patient was noted to have an elevated lipase level and liver function te sts. A CT scan of the abdomen and pelvis this time revealed findings consistent with acute pancreatitis and peripancreatic, mesenteric, retroperitoneal, pericolonic fat streaking and edema. No evidence of pancreatic necrosis or hemorrhage was noted. The patient denied any fevers, chills, jaundice, or alteration in mental status. The patient was admitted to the hospitalist service, a consult was placed for GI for an ERCP. A consult was also placed for Gen. surgery for further evaluation of cholecystectomy. During hospitalization, the patient was started on IV fluid hydration and antibiotic therapy. He underwent an ERCP on 09/12 with biliary sphincterotomy, balloon extraction of stones, and pancreatic duct stent placement. The patient's liver function tests and overall clinical condition significantly improved thereafter. The patient was also seen by general surgery who has recommended com pletion of a 7 day course of antibiotic therapy and follow-up in the outpatient setting in 2-3 weeks for cholecystectomy. At this time, the patient reports that his abdominal pain has resolved, and he is tolerating a by mouth diet without any acute complaints. I've asked that the patient follow-up with his primary care physician within 7 days, general surgery within 2-3 weeks, and he will also need an abdominal x-ray in one month to confirm spontaneous stent passage. The above findings including risks, benefits, and alternative options were discussed with the patient at length, and he has verbalized understanding of the same. DISCHARGE MEDICATIONS: Please see below. ALLERGIES: Please see below. PHYSICAL EXAMINATION ON DISCHARGE: VITAL SIGNS: Please see below. General Exam: Positive: Alert, Cooperative, No acute distress ENT Exam: Positive: Atraumatic, Mucous membr. moist/pink Neck Exam: Negative: JVD Chest Exam: Positive: Clear to auscultation, Normal air movement Heart Exam: Positive: Rate Normal, Normal S1, Normal S2 Abdomen Exam: Soft, nondistended, no tenderness to palpation. No rebound tenderness, guarding, or rigidity. Extremity Exam: Negative: Tenderness, Swelling Psych Exam: Positive: Oriented x 3 LABORATORY DATA: Please see below. IMAGING: RIGHT UPPER QUADRANT ULTRASOUND: Real-time sonographic evaluation of the right upper quadrant performed and compared to prior study of 09/11/2018. Patient is tender at the site of the gallbladder. Once again, there are multiple subcentimeter stones in the region of the neck of the gallbladder. There is no gallbladder wall thickening but there is a tiny amount of free fluid around the neck of the gallbladder. There is no intrahepatic or extrahepatic biliary dilatation, common bile duct measuring 3 mm. Liver demonstrates no gross abnormality. Pancreas is not seen due to overlying bowel gas. Right kidney demonstrates no hydronephrosis with normal size 11.4 cm in length. IMPRESSION: Patient tender at the site of the gallbladder which is moderately distended. Multiple subcentimeter gallstones again seen in the neck of the gallbladder now with trace amount of free fluid around the neck of the gallbladder. No biliary dilatation or wall thickening. PROGNOSIS: CT abdomen and pelvis with IV but without oral contrast: History: Pancreatitis. Cholelithiasis. Comparison study: September 11, 2018. 100 mL of intravenous Isovue 370 is administered. Findings: Preliminary digital managing supervisor radiograph demonstrates gas distension of the transverse colon and several loops of small bowel in the central abdomen consistent with ileus (sentinel loop). The lung bases are clear. The liver and the spleen are normal in size and homogeneous in texture. Gallbladder is similar in size but its wall is mildly thickened diffusely. There is heterogeneous enhancement pattern in the liver parenchyma adjacent to the gallbladder. No adrenal lesion is seen. There is evidence of considerable peripancreatic, retroperitoneal, and paraduodenal streakiness and edema. This extends along the gastrocolic ligament into the pericolonic fat at the level of the transverse colon. There is a small quantity of fluid in the left pericolic gutter. The pancreas tissue enhances homogeneously. There is no evidence of pancreatic necrosis or hemorrhagic change. No abscess or other fluid collection is seen. The edema is all new when compared with yesterday's CT study. No evidence of free air. Pelvic CT images demonstrate a minimal amount of ascitic fluid in the pelvic reflections. Urinary bladder is unremarkable. Prostate calcifications are seen. Study is otherwise negative. Impression: Findings consistent with acute pancreatitis. There is new and moderate peripancreatic, mesenteric, retroperitoneal, pericolonic fat streaking and edema. A small quantity of left pericolic and pelvic ascitic fluid is seen. There is no evidence of pancreatic necrosis or hemorrhagic change. Procedure: ERCP Indications: Biliary dilation on Ultrasound, Suspected bile duct stone(s), Suspected ascending cholangitis, Jaundice, Gallstone associated acute pancreatitis Providers: John ADLER MD Referring MD: 2. Inpatient 2. Inpatient Requesting Provider: Medicines: General Anesthesia Complications: No immediate complications. Procedure: Pre-Anesthesia Assessment: - The heart rate, respiratory rate, oxygen saturations, blood pressure, adequacy of pulmonary ventilation, and response to care were monitored throughout the procedure. The Duodenoscope was introduced through the mouth, and advanced to the duodenum and used to inject contrast into the bile duct and ventral pancreatic duct. The ERCP was accomplished without difficulty. The patient tolerated the procedure well. Findings: The managing supervisor film was normal. The esophagus was successfully intubated under direct vision. The scope was advanced to a normal major papilla in the descending duodenum without detailed examination of the pharynx, larynx and associated structures, and upper GI tract. The upper GI tract was grossly normal. Was passed into the ventral pancreatic duct. The ventral pancreatic duct was then injected with contrast. I personally interpreted the pancreatic duct images. Ductal flow of contrast was adequate. Image quality was adequate. Contrast extended to the mid pancreatic duct. A wire was passed into the biliary tree. The bile duct was then deeply cannulated over the guidewire. Contrast was injected. Opacification of the entire biliary tree except for the gallbladder was successful. The maximum diameter of the ducts was 9 mm. The lower third of the main bile duct contained two stones, the largest of which was 7 mm in diameter. An 8 mm biliary sphincterotomy was made with a monofilament traction (standard) sphincterotome using ERBE electrocautery. There was no post-sphincterotomy bleeding. The biliary tree was swept with a 9 mm balloon starting at the bifurcation. All stones were removed. One 3 Fr by 2.5 cm temporary stent with a 3/4 external pigtail and no internal flaps was placed into the ventral pancreatic duct. Clear fluid flowed through the stent. The stent was in good position. Impression: - Choledocholithiasis was found. Complete removal was accomplished by biliary sphincterotomy and balloon extraction. - A biliary sphincterotomy was performed. - The biliary tree was swept. - One temporary stent was placed into the ventral pancreatic duct. Recommendation: - Observe patient's clinical course. - Observe patient's clinical course following today's ERCP with therapeutic intervention. - Confirm spontaneous stent passage by performing a KUB x-ray in 1 month. - Return to my office at appointment to be scheduled. ACTIVITY: As tolerated. DIET: As tolerated DISCHARGE PLAN: DISPOSITION: 01 Home, Self-Care. DISCHARGE INSTRUCTIONS: I've asked that the patient follow-up with his primary care physician within 7 days, general surgery within 2-3 weeks, and he will also need an abdominal x-ray in one month to confirm spontaneous stent passage. The above findings including risks, benefits, and alternative options were discussed with the patient at length, and he has verbalized understanding of the same. DISCHARGE CONDITION: Stable. TIME SPENT ON DISCHARGE: Greater than 30 minutes. Vital Signs/I&Os Vital Signs Date Time Temp Pulse Resp B/P (MAP) Pulse Ox O2 Delivery O2 Flow Rate FiO2 09/16/18 08:00 98.5 90 20 174/79 (110) 95 09/12/18 14:51 Room Air I&O- Last 24 Hours up to 6 AM 09/16/18 06:00 Intake Total 1040 ml Output Total 300 ml Balance 740 ml Laboratory Data Labs 24H Laboratory Tests 2 09/16/18 05:28: Nucleated Red Blood Cells % (auto) 0.0, Anion Gap 5L, Glomerular Filtration Rate > 60.0, Blood Urea Nitrogen 18, Creatinine 0.94, Sodium Level 144, Potassium Level 3.6, Chloride Level 109H, Carbon Dioxide Level 30, Calcium Level 8.0L, Aspartate Amino Transf (AST/SGOT) 48H, Alanine Aminotransferase (ALT/SGPT) 138H, Alkaline Phosphatase 117, Total Bilirubin 0.8, Total Protein 5.5L, Albumin 2.4L, C-Reactive Protein, Quantitative 15.30H, Albumin/Globulin Ratio 0.77L CBC/BMP Laboratory Tests 09/16/18 05:28 Red Blood Count 3.33 L, Mean Corpuscular Volume 98.8 H, Mean Corpuscular Hemoglobin 32.1, Mean Corpuscular Hemoglobin Concent 32.5, Red Cell Distribution Width 13.8, Calcium Level 8.0 L, Aspartate Amino Transf (AST/SGOT) 48 H, Alanine Aminotransferase (ALT/SGPT) 138 H, Alkaline Phosphatase 117, Total Bilirubin 0.8, Total Protein 5.5 L, Albumin 2.4 L Discharge Medications Scheduled Alprazolam (Xanax) 0.25 Mg Tab, 0.5 MG PO QHS, (Reported) Ciprofloxacin HCl (Cipro) 500 Mg Tablet, 1 TAB PO BID Folic Acid (Folic Acid) 1 Mg Tablet, 1 MG PO DAILY, (Reported) Glucosamine/D3/Boswellia Elvia (Osteo Bi-Flex Tablet) 1 Each Tablet, 2 TAB PO DAILY, (Reported) Methotrexate Sodium (Methotrexate) 2.5 Mg Tablet, 25 MG PO QWEEK, (Reported) FRIDAYS Metronidazole (Flagyl) 500 Mg Tablet, 500 MG PO Q8H FOR 10 DAYS Paroxetine HCl (Paroxetine HCl) 20 Mg Tab, 20 MG PO QHS, (Reported) Allergies Coded Allergies: No Known Allergies (Unverified , 09/11/18) KENDAL REYNA MD Sep 16, 2018 14:30
== END 2018-09-16 12:09 | disposition home or self-care (01) ==
LOC: M ED 09:07 → M ED INP 12:42 → M PCU 15:10
PROVIDERS: ADMIT Internal Medicine; ATTEND Internal Medicine
PROC: 0FCD8ZZ Extirpation of Matter from Pancreatic Duct, Via Natural or Artificial Opening Endoscopic (ICD-10-PCS; 2018-09-12)
PROC: 0F7D8DZ Dilation of Pancreatic Duct with Intraluminal Device, Via Natural or Artificial Opening Endoscopic (ICD-10-PCS; principal; 2018-09-12 12:08)
DX: K80.40 Calculus of bile duct with cholecystitis, unspecified, without obstruction (principal); K85.10 Biliary acute pancreatitis without necrosis or infection; M06.9 Rheumatoid arthritis, unspecified; F41.9 Anxiety disorder, unspecified; D72.829 Elevated white blood cell count, unspecified; F32.9 Major depressive disorder, single episode, unspecified; Z79.899 Other long term (current) drug therapy

== ENCOUNTER 2018-09-18 22:38 | Inpatient (IN) | payer BC ==
[~2018-09-18] VITALS: Ht 177.8 cm; Wt 80.9 kg
[~2018-09-18 22:38] MED LIST changes: +CIPR-249 PO; +FLAG500T PO; +GLUC1TAB58 PO
[2018-09-18] MEDS ORDERED: ONDANSETRON 4MG/2ML VIAL (J2405) IV ONE (23:15)
[2018-09-18] MEDS ORDERED: NS 1,000 ML IV ONE (23:15)
[2018-09-18] MEDS ORDERED: MORPHINE 4 MG/ML 1ML VIAL/SYRINGE (J2270) IV ONE (23:15)
--- NOTE | 2018-09-19 00:51 | REPVR ---
EXAM: US Abdomen Limited, Right Upper Quadrant EXAM DATE/TIME: 09/18/2018 11:44 PM CLINICAL HISTORY: 57 years old, male; Abdominal pain; Epigastric; Prior surgery; Surgery date: 3-7 days post-operative; Surgery type: Patient states had stones removed and stent placed; Additional info: Ruq pain. Status post stent placement. TECHNIQUE: Imaging protocol: Real-time ultrasound of the abdomen with image documentation. Examination was focused on the right upper quadrant. COMPARISON: GALLBLADDER US 09/12/2018 10:45 AM FINDINGS: Pleural space: Small right pleural effusion. Liver: Normal. No masses. Gallbladder: No shadowing gallstones. Positive for sludge. No gallbladder wall thickening. Positive nonspecific Nicholson sign. Common bile duct: There is no biliary dilatation. CBD measures 3.3 mm in diameter. There is no biliary stent seen. Pancreas: Visualized pancreas is ill-defined. Right kidney: Right kidney measures 11.9 cm in length. No right hydronephrosis. No masses. Portal venous: Visualized main portal vein is patent. IMPRESSION: 1. Sludge in the gallbladder without gallstones. 2. Nonspecific Nicholson sign. 3. No biliary stent is not seen. 4. Visualized pancreas is ill-defined. Correlate with labs. 5. Small right pleural effusion. Unknown etiology. Electronically signed by: Ryan Hansen On 09/19/2018 00:51:24 AM
[2018-09-19 01:18] LABS: BASO # 0.1 10^3/uL (0.0-0.2); BASO % 0.3 % (0.0-1.0); EOS # 0.5 10^3/uL (0.0-0.50); EOS % 2.1 % (0.0-3.0); HEMATOCRIT 38.2 % (42.0-52.0); HEMOGLOBIN 12.8 g/dl (13.5-17.5); LYMPH # 1.6 10^3/uL (1.5-4.5); LYMPH % 7.3 % (24.0-44.0); MEAN CORPUSCULAR HEMOGLOBIN 32.1 pg (27.0-33.0); MEAN CORPUSCULAR HGB CONC 33.5 g/dl (32.0-36.5); MEAN CORPUSCULAR VOLUME 95.7 fl (80.0-96.0); MONO # 1.7 10^3/uL (0.0-0.8); MONO % 7.6 % (0.0-5.0); NEUTROPHILS # 17.9 10^3/uL (1.8-7.7); NEUTROPHILS % 81.5 % (36.0-66.0); PLATELET COUNT, AUTOMATED 316 10^3/uL (150-450); RED BLOOD COUNT 3.99 10^6/uL (4.30-6.10)
[2018-09-19 02:01] LABS: ALBUMIN 2.6 GM/DL (3.2-5.2); ALT/SGPT 85 U/L (12-78); AMYLASE 45 U/L (25-115); BILIRUBIN,DIRECT 0.2 MG/DL (0.0-0.2); BILIRUBIN,TOTAL 0.6 MG/DL (0.2-1.0); BLOOD UREA NITROGEN 11 MG/DL (7-18); CALCIUM LEVEL 8.2 MG/DL (8.5-10.1); CARBON DIOXIDE LEVEL 28 MEQ/L (21-32); CHLORIDE LEVEL 105 MEQ/L (98-107); CREATININE FOR GFR 0.97 MG/DL (0.70-1.30); GLOMERULAR FILTRATION RATE > 60.0 (>56); GLUCOSE, FASTING 112 MG/DL (70-100); LIPASE 149 U/L (73-393); POTASSIUM SERUM 3.7 MEQ/L (3.5-5.1); SODIUM LEVEL 139 MEQ/L (136-145); TOTAL PROTEIN 6.7 GM/DL (6.4-8.2)
[2018-09-19] MEDS ORDERED: ISOVUE-370 76% 100ML VIAL (Q9967) As Ordered ONE (02:46)
--- NOTE | 2018-09-19 04:22 | REPVR ---
EXAM: CT Abdomen and Pelvis With Contrast EXAM DATE/TIME: 09/19/2018 2:34 AM CLINICAL HISTORY: 57 years old, male; Abdominal pain; Localized; Right; Patient HX: S/P ercp 09/12/18; Additional info: Right sided abd pain TECHNIQUE: Imaging protocol: Axial computed tomography images of the abdomen and pelvis with intravenous contrast. Coronal and sagittal reformatted images were created and reviewed. Radiation optimization: All CT scans at this facility use at least one of these dose optimization techniques: automated exposure control; mA and/or kV adjustment per patient size (includes targeted exams where dose is matched to clinical indication); or iterative reconstruction. Contrast material: ISO; Contrast volume: 100 ml; Contrast route: AC; COMPARISON: CT ABD/PEL W/IV CONTRAST ONLY 09/12/2018 2:47 PM FINDINGS: Lungs: Mild bibasilar fibro-atelectatic change, greatest in the lower lobes. Pleural space: Minimal bilateral pleural effusions. ABDOMEN: Liver: Right hepatic cyst measuring 8 mm. Gallbladder and bile ducts: Normal. No calcified stones. No ductal dilation. Pancreas: Peripancreatic induration and edema which is similar overall since the prior study with extension into the transverse mesocolon and mesenteric root. There is some accentuation of the anterior pararenal fascia, left greater than right. There is minimal free fluid in the pelvis consistent with pancreatitis which is very slightly increased. Spleen: Normal. No splenomegaly. Adrenals: Normal. No mass. Kidneys and ureters: Normal. No hydronephrosis. Stomach and bowel: There is a stent with a pigtail tip in the mid ascending colon. Appendix: There are no changes of appendicitis. A normal appendix is not seen. PELVIS: Bladder: Unremarkable as visualized. Reproductive: Unremarkable as visualized. ABDOMEN and PELVIS: Intraperitoneal space: There is a minimal fluid collection caudal to the distal third portion of the duodenum which is new since the prior study and measures 3.2 x 1.8 x 2.4 cm and may reflect an early pseudocyst. Bones/joints: No acute fracture. No dislocation. Soft tissues: Unremarkable. Vasculature: Normal. No abdominal aortic aneurysm. Lymph nodes: Normal. No enlarged lymph nodes. IMPRESSION: 1. Pancreatitis which is similar overall since 09/12/2018. There is question of an early pseudocyst developing caudal to the distal third portion of the duodenum. 2. Pigtail stent in the mid ascending colon which has probably been displaced from the pancreatic or common bile ducts. 3. New small bilateral pleural effusions since the prior study with mild bibasilar fibro-atelectatic change which is primarily in the lower lobes. 4. Minimal free fluid in the pelvis, probably related to pancreatitis which is very slightly increased since the prior study. Electronically signed by: Antonio Lujan On 09/19/2018 04:22:34 AM
[2018-09-19] MEDS ORDERED: ACETAMINOPHEN TAB 650MG DOSE (2X325MG) PO PRN (05:30)
[2018-09-19] MEDS ORDERED: MOM 30ML SUSPENSION UDC PO PRN (05:30)
[2018-09-19] MEDS ORDERED: ONDANSETRON 4MG/2ML VIAL (J2405) IV PRN (05:30)
[2018-09-19] MEDS ORDERED: MAALOX 30 ML SUSP *UDC PO PRN (05:30)
[2018-09-19] MEDS ORDERED: MORPHINE 4 MG/ML 1ML VIAL/SYRINGE (J2270) IV PRN (05:30)
[2018-09-19] MEDS ORDERED: METH2.5T48 PO (05:33)
[2018-09-19] MEDS ORDERED: CIPR500T3 PO (05:33)
[2018-09-19] MEDS ORDERED: METR-265 PO (05:35)
--- NOTE | 2018-09-19 06:21 | HPEPDOC ---
General Date of Admission September 18, 2018 at 22:39 Chief Complaint The patient is a 57-year-old male admitted with a reason for visit of Abdominal Pain. Source: Patient, Old records Exam Limitations: No limitations Timing/Duration: Day(s) Severity: Moderate History of Present Illness Mr. Rothman is a 57 years old man who was recently admitted for gallstone pancreatitis and discharged home on 09/16. He underwent an ERCP on 09/12 with b iliary sphincterotomy, balloon extraction of stones, and pancreatic duct stent placement. He was referred to Surgery follow up in 2-3 weeks for elective cholecystectomy. The pt returned to ER last night with right abdominal pain similar to his prior presentation. He denies nausea, vomiting, fever or chills. In ER, pt had WBC of 22K with normal vitals. Pancreatic and liver enzymes are normal. CT abdomen shows persistent peripancreatic edema unchanged from previous exam, and new evolving pseudocyst. GB and CBD are fine. Pancreatic duct stent has dislodged to colon. US shows gallbladder sludge, otherwise unremarkable. Dr. Garcia from GI was contacted from ER, impression: possible evolving recurrent pancreatitis; recommendations: keep in the hospital for monitoring, blood c/s, hod antibiotic for now. Abdominal pain has subsided after receiving treatment in the ER. Home Medications Scheduled Alprazolam (Xanax) 0.25 Mg Tab, 0.5 MG PO QHS, (Reported) Ciprofloxacin HCl (Ciprofloxacin HCl) 500 Mg Tablet, 500 MG PO BID, (Reported) LAST DOSE WAS SUPPOSED TO BE FOR 09/19/18 AT 0000 Folic Acid (Folic Acid) 1 Mg Tablet, 1 MG PO DAILY, (Reported) Glucosamine/D3/Boswellia Elvia (Osteo Bi-Flex Tablet) 1 Each Tablet, 2 TAB PO DAILY, (Reported) Methotrexate Sodium (Methotrexate) 2.5 Mg Tablet, 25 MG PO 1XWK, (Reported) Metronidazole (Metronidazole) 500 Mg Tablet, 500 MG PO Q8H, (Reported) LAST DOSE WAS SUPPOSED TO BE ON 09/19/18 AT 0000 Paroxetine HCl (Paroxetine HCl) 20 Mg Tab, 20 MG PO QHS, (Reported) Allergies Coded Allergies: No Known Allergies (Unverified , 09/11/18) Past Medical History Medical History Gallstone Pancreatitis, Rheumatoid Arthritis, Depression/Anxiety Surgical History ERCP on 09/12 with biliary sphincterotomy, balloon extraction of stones, and pancreatic duct stent placement Family History Significant Family History: No pertinent family hx Social History * Smoker: Denies Alcohol: Denies Drugs: denies A-FIB/CHADSVASC A-FIB History Current/History of A-Fib/PAF?: No Review of Systems Constitutional: Denies: Chills, Fever Eyes: Denies: Pain, Vision change, Conjunctivae inflammation, Eyelid inflamma tion, Redness, Other ENT: Denies: Head Aches, Ear Pain, Dysphagia, Sinus Congestion, Post Nasal Drip, Sore Throat, Epistaxis, Other Symptoms Skin: Denies: Rash, Lesions, Jaundice, Bruising, Itching, Dry, Breakdown, Nail Changes, Other Pulmonary: Denies: Dyspnea, Cough, Pleuritic Chest Pain, Other Symptoms Cardiovascular: Denies: Chest Pain, Palpitations, Orthopnea, Paroxysmal Noc. Dyspnea, Edema, Lt Headedness, Other Symptoms Gastrointestinal: Reports: Abdominal Pain; Denies: Nausea, Vomiting, Diarrhea Genitourinary: Denies: Dysuria, Frequency, Incontinence, Hematuria, Retention, Other Symptoms Hematologic: Denies: Bruising, Bleeding Excessively, Petecchia, Purpura, Enlarged Lymph Nodes, Other Hematologic Endocrine: Denies: Polydipsia, Polyphagia, Polyuria, Heat Intolerance, Cold Intolerance, Other Endocrine Sx Musculoskeletal: Denies: Neck Pain, Back Pain, Shoulder Pain, Arm Pain, Hand Pain, Leg Pain, Foot Pain, Joint Pain, Muscle Pain, Spasms, Other Symptoms Neurological: Denies: Weakness, Numbness, Incoordination, Change in speech, Confusion, Seizures, Other Symptoms Psych: Reports: Mood Normal Physical Examination General Exam: Positive: Alert, Cooperative, No Acute Distress Eye Exam: Positive: Conjunctiva & lids normal ENT Exam: Positive: Atraumatic Neck Exam: Positive: Supple Chest Exam: Positive: Clear to auscultation, Normal air movement Heart Exam: Positive: Rate Normal, Regular Rhythm Abdomen Exam: Positive: Normal bowel sounds, Tenderness (mild tenderness on RUQ and epigastric area; no guarding or rebound) Extremity Exam: Positive: Normal pulses; Negative: Edema Skin Exam: Negative: Nl turgor and temperature, Rash, Breakdown, Lesion, Pruritus, Other skin issue Neuro Exam: Positive: Normal Speech, Strength at 5/5 X4 ext Psych Exam: Positive: Mental status NL, Mood NL Vital Signs Vital Signs Date Time Temp Pulse Resp B/P (MAP) Pulse Ox O2 Delivery O2 Flow Rate FiO2 09/19/18 04:19 53 94 09/19/18 03:31 129/61 (83) 09/19/18 01:31 Room Air 09/19/18 01:23 18 09/18/18 22:40 97.1 Laboratory Data Labs 24H Laboratory Tests 2 09/19/18 01:04: Immature Granulocyte % (Auto) 1.2, White Blood Count 22.0H, Red Blood Count 3.99L, Hemoglobin 12.8L, Hematocrit 38.2L, Mean Corpuscular Volume 95.7, Mean Corpuscular Hemoglobin 32.1, Mean Corpuscular Hemoglobin Concent 33.5, Red Cell Distribution Width 13.4, Platelet Count 316, Neutrophils (%) (Auto) 81.5H, Lymphocytes (%) (Auto) 7.3L, Monocytes (%) (Auto) 7.6H, Eosinophils (%) (Auto) 2.1, Basophils (%) (Auto) 0.3, Neutrophils # (Auto) 17.9H, Lymphocytes # (Auto) 1.6, Monocytes # (Auto) 1.7H, Eosinophils # (Auto) 0.5, Basophils # (Auto) 0.1, Nucleated Red Blood Cells % (auto) 0.0, Anion Gap 6L, Glomerular Filtration Rate > 60.0, Calcium Level 8.2L, Aspartate Amino Transf (AST/SGOT) 48H, Alanine Aminotransferase (ALT/SGPT) 85H, Alkaline Phosphatase 144H, Total Bilirubin 0.6, Direct Bilirubin 0.2, Total Protein 6.7#, Albumin 2.6L, Albumin/Globulin Ratio 0.63L, Amylase Level 45, Lipase 149 09/19/18 05:19: CBC/BMP Laboratory Tests 09/19/18 01:04 Red Blood Count 3.99 L, Mean Corpuscular Volume 95.7, Mean Corpuscular Hemoglobin 32.1, Mean Corpuscular Hemoglobin Concent 33.5, Red Cell Distribution Width 13.4, Neutrophils (%) (Auto) 81.5 H, Lymphocytes (%) (Auto) 7.3 L, Monocytes (%) (Auto) 7.6 H, Eosinophils (%) (Auto) 2.1, Basophils (%) (Auto) 0.3, Neutrophils # (Auto) 17.9 H, Lymphocytes # (Auto) 1.6, Monocytes # (Auto) 1.7 H, Eosinophils # (Auto) 0.5, Basophils # (Auto) 0.1 Microbiology Microbiology 09/19/18 Blood Culture, Received Pending RAD Interpretation STUDY: CT abd/pelv, GB US Rad Actions: Report Reviewed Assessment/Plan 57 years old man discharged four days ago after treatment of Gallstone Pancreatitis and ERCP on 09/12 with biliary sphincterotomy, balloon extraction of stones, and pancreatic duct stent placement. Returning with right abdominal pain and leucocytosis. Normal liver and pancreatic enzymes. CT: persistent peripancreatic edema and evolving new pseudocyst. Right Abdominal Pain and Leucocytosis - No clear sings of infection or complications from pancreatitis - Keep on observation with Tele - Monitor for signs of infection and sepsis. Hold antibiotic until then - Trend liver and pancreatic enzymes, WBC; f/u blood c/s - NPO, IV Fluid, prn Morphine - GI and Surgery f/u as needed. Both were contacted from ER Plan / VTE VTE Prophylaxis Ordered?: No VTE Exclusion Mechanical Proph: Low Risk for VTE VTE Exclusion Pharmacological: At Low Risk for VTE Plan Anticipated Discharge: Home RAVINDRA GONZALES MD September 19, 2018 06:21
[2018-09-19] MEDS: PANTOPRAZOLE 40MG INJ (PROTONIX) (C9113) IV SCH (09:53)
[2018-09-19] MEDS: FOLIC ACID 1 MG TAB PO SCH (09:53)
[2018-09-19] MEDS: NS 1,000 ML IV SCH ×3 (09:54→20:44)
[2018-09-19 14:00] VITALS: BP 158/75
[2018-09-19] MEDS: MEROPENEM INJ 1 GM in APPROPRIATE DILUENT 1 EA IV SCH (17:06)
[2018-09-19 18:00] VITALS: BP 146/71
--- NOTE | 2018-09-19 19:08 | IPNPDOC ---
Text Note Date of Service The patient was seen on 09/19/18. NOTE SUBJECTIVE: VITALS: As below General Exam: Positive: Alert, Cooperative, No Acute Distress Eye Exam: Positive: Conjunctiva & lids normal ENT Exam: Positive: Atraumatic Neck Exam: Positive: Supple Chest Exam: Positive: Clear to auscultation, Normal air movement Heart Exam: Positive: Rate Normal, Regular Rhythm Abdomen Exam: Positive: Normal bowel sounds, Tenderness (mild tenderness on RUQ and epigastric area; no guarding or rebound) Extremity Exam: Positive: Normal pulses; Negative: Edema Skin Exam: Negative: Nl turgor and temperature, Rash, Breakdown, Lesion, Pruritus, Other skin issue Neuro Exam: Positive: Normal Speech, Strength at 5/5 X4 ext Psych Exam: Positive: Mental status NL, Mood NL LAbs and Radiology: reviewed. Assessment and PLAN: Mr. Rothman is a 57 years old man who was recently admitted for gallstone pancreatitis and discharged home on 09/16. He underwent an ERCP on 09/12 with biliary sphincterotomy, balloon extraction of stones, and pancreatic duct stent placement. He was referred to Surgery follow up in 2-3 weeks for elective cholecystectomy. The pt returned to ER with right abdominal pain similar to his prior presentation. In ER, pt had WBC of 22K with normal vitals. Pancreatic and liver enzymes are normal. CT abdomen shows persistent peripancreatic edema unchanged from previous exam, and new evolving pseudocyst. GB and CBD are fine. Pancreatic duct stent has dislodged to colon. US shows gallbladder sludge, otherwise unremarkable. Patient was admitted for monitoring for complications from pancreatitis and infection Resolving Acute gallstone pancreatitis with possible new evolving pseudocyst formation with some new worsening of pain with elevated WBC continue with IVF, NPO will give meropenem and deescalate once infection ruled out cultures pending. GI consulted. History of anxiety continue paroxetine, benzodiazepine History of rheumatoid arthritis on methotrexate . DVT prophylaxis has been ordered. VS,Fishbone, I+O VS, Fishbone, I+O Laboratory Tests 09/19/18 01:04 Red Blood Count 3.99 L, Mean Corpuscular Volume 95.7, Mean Corpuscular Hemoglobin 32.1, Mean Corpuscular Hemoglobin Concent 33.5, Red Cell Distribution Width 13.4, Neutrophils (%) (Auto) 81.5 H, Lymphocytes (%) (Auto) 7.3 L, Monocytes (%) (Auto) 7.6 H, Eosinophils (%) (Auto) 2.1, Basophils (%) (Auto) 0.3, Neutrophils # (Auto) 17.9 H, Lymphocytes # (Auto) 1.6, Monocytes # (Auto) 1.7 H, Eosinophils # (Auto) 0.5, Basophils # (Auto) 0.1 Vital Signs Date Time Temp Pulse Resp B/P (MAP) Pulse Ox O2 Delivery O2 Flow Rate FiO2 09/19/18 14:00 98.4 54 18 158/75 (102) 97 09/19/18 12:45 Room Air TRICE BOWER MD September 19, 2018 16:30
[2018-09-19] MEDS: PARoxetine 20 MG TAB PO SCH (20:41)
[2018-09-19] MEDS: ALPRAZolam 0.25 MG TAB PO SCH (20:41)
[2018-09-19 22:00] VITALS: BP 158/82
[2018-09-20] MEDS: MEROPENEM INJ 1 GM in APPROPRIATE DILUENT 1 EA IV SCH ×3 (01:07→17:23)
[2018-09-20] MEDS: NS 1,000 ML IV SCH ×2 (01:29→06:29)
[2018-09-20 02:00] VITALS: BP 142/80
[2018-09-20 05:47] LABS: BASO # 0.1 10^3/uL (0.0-0.2); BASO % 0.4 % (0.0-1.0); EOS # 0.4 10^3/uL (0.0-0.50); EOS % 2.4 % (0.0-3.0); HEMATOCRIT 33.9 % (42.0-52.0); HEMOGLOBIN 11.3 g/dl (13.5-17.5); LYMPH # 1.4 10^3/uL (1.5-4.5); LYMPH % 7.8 % (24.0-44.0); MEAN CORPUSCULAR HEMOGLOBIN 31.7 pg (27.0-33.0); MEAN CORPUSCULAR HGB CONC 33.3 g/dl (32.0-36.5); MONO # 1.3 10^3/uL (0.0-0.8); MONO % 7.3 % (0.0-5.0); NEUTROPHILS # 14.6 10^3/uL (1.8-7.7); NEUTROPHILS % 80.8 % (36.0-66.0); PLATELET COUNT, AUTOMATED 355 10^3/uL (150-450); RED BLOOD COUNT 3.57 10^6/uL (4.30-6.10); WHITE BLOOD COUNT 18.1 10^3/uL (4.0-10.0)
[2018-09-20 06:00] VITALS: BP 142/78
[2018-09-20 06:28] LABS: AMYLASE 41 U/L (25-115); BLOOD UREA NITROGEN 9 MG/DL (7-18); CALCIUM LEVEL 7.7 MG/DL (8.5-10.1); CARBON DIOXIDE LEVEL 26 MEQ/L (21-32); CHLORIDE LEVEL 108 MEQ/L (98-107); CREATININE FOR GFR 0.94 MG/DL (0.70-1.30); GLOMERULAR FILTRATION RATE > 60.0 (>56); GLUCOSE, FASTING 86 MG/DL (70-100); LIPASE 158 U/L (73-393); POTASSIUM SERUM 3.7 MEQ/L (3.5-5.1); SODIUM LEVEL 139 MEQ/L (136-145)
[2018-09-20] MEDS: PANTOPRAZOLE 40MG INJ (PROTONIX) (C9113) IV SCH (08:46)
[2018-09-20] MEDS: FOLIC ACID 1 MG TAB PO SCH (08:46)
[2018-09-20 10:00] VITALS: BP 142/69
[2018-09-20] MEDS: D5W/0.9% SODIUM CHLORIDE 1,000 ML IV SCH ×2 (12:52→21:25)
--- NOTE | 2018-09-20 13:46 | IPNPDOC ---
Text Note Date of Service The patient was seen on 09/20/18. NOTE SUBJECTIVE: Abdominal pain better today but has back pain in the right lower c hest region. Did not need any morphine. No bowel movement but passing gas. No fever or chills, no chest pain or sob. Has been walking. VITALS: As below General Exam: Positive: Alert, Cooperative, No Acute Distress Eye Exam: Positive: Conjunctiva & lids normal ENT Exam: Positive: Atraumatic Neck Exam: Positive: Supple Chest Exam: Positive: Clear to auscultation, Normal air movement Heart Exam: Positive: Rate Normal, Regular Rhythm Abdomen Exam: Positive: Normal bowel sounds, Tenderness (mild tenderness on RUQ and epigastric area; no guarding or rebound) Extremity Exam: Positive: Normal pulses; Negative: Edema Skin Exam: Negative: Nl turgor and temperature, Rash, Breakdown, Lesion, Pruritus, Other skin issue Neuro Exam: Positive: Normal Speech, Strength at 5/5 X4 ext Psych Exam: Positive: Mental status NL, Mood NL LAbs and Radiology: reviewed. Assessment and PLAN: Mr. Rothman is a 57 years old man who was recently admitted for gallstone pancreatitis and discharged home on 09/16. He underwent an ERCP on 09/12 with biliary sphincterotomy, balloon extraction of stones, and pancreatic duct stent placement. He was referred to Surgery follow up in 2-3 weeks for elective cholecystectomy. The pt returned to ER with right abdominal pain similar to his prior presentation. In ER, pt had WBC of 22K with normal vitals. Pancreatic and liver enzymes are normal. CT abdomen shows persistent peripancreatic edema unchanged from previous exam, and new evolving pseudocyst. GB and CBD are fine. Pancreatic duct stent has dislodged to colon. US shows gallbladder sludge, otherwise unremarkable. Patient was admitted for monitoring for complications from pancreatitis and infection Resolving Acute gallstone pancreatitis with possible new evolving pseudocyst formation pancreatic duct stent placed last admission has dislodged to colon with some new worsening of pain with elevated WBC continue with IVF, NPO will give meropenem and deescalate once infection ruled out cultures negative till date GI consulted. Hypoglycemia probably as he is NPO will change ivf History of anxiety continue paroxetine, benzodiazepine History of rheumatoid arthritis on methotrexate . DVT prophylaxis has been ordered. A-FIB/CHADSVASC A-FIB History Current/History of A-Fib/PAF?: No VS,Fishbone, I+O VS, Fishbone, I+O Laboratory Tests 09/20/18 05:13 Red Blood Count 3.57 L, Mean Corpuscular Volume 95.0, Mean Corpuscular Hemoglobin 31.7, Mean Corpuscular Hemoglobin Concent 33.3, Red Cell Distribution Width 13.3, Neutrophils (%) (Auto) 80.8 H, Lymphocytes (%) (Auto) 7.8 L, Monocytes (%) (Auto) 7.3 H, Eosinophils (%) (Auto) 2.4, Basophils (%) (Auto) 0.4, Neutrophils # (Auto) 14.6 H, Lymphocytes # (Auto) 1.4 L, Monocytes # (Auto) 1.3 H, Eosinophils # (Auto) 0.4, Basophils # (Auto) 0.1, Calcium Level 7.7 L Vital Signs Date Time Temp Pulse Resp B/P (MAP) Pulse Ox O2 Delivery O2 Flow Rate FiO2 09/20/18 10:00 97.6 63 20 142/69 (93) 97 09/19/18 12:45 Room Air l I&O- Last 24 Hours up to 6 AM 09/20/18 06:00 Intake Total 4190 ml Output Total 0 ml Balance 4190 ml TRICE BOWER MD September 20, 2018 13:46
[2018-09-20 14:00] VITALS: BP 164/77
[2018-09-20 18:00] VITALS: BP 169/72
[2018-09-20] MEDS: PARoxetine 20 MG TAB PO SCH (21:24)
[2018-09-20] MEDS: ALPRAZolam 0.25 MG TAB PO SCH (21:24)
[2018-09-20 22:00] VITALS: BP 140/82
[2018-09-21] MEDS: MEROPENEM INJ 1 GM in APPROPRIATE DILUENT 1 EA IV SCH ×3 (01:02→17:23)
[2018-09-21] MEDS: D5W/0.9% SODIUM CHLORIDE 1,000 ML IV SCH ×2 (04:07→12:07)
[2018-09-21 05:48] LABS: BASO # 0.1 10^3/uL (0.0-0.2); BASO % 0.6 % (0.0-1.0); EOS # 0.4 10^3/uL (0.0-0.50); EOS % 3.4 % (0.0-3.0); HEMATOCRIT 35.4 % (42.0-52.0); HEMOGLOBIN 11.8 g/dl (13.5-17.5); LYMPH # 1.1 10^3/uL (1.5-4.5); LYMPH % 8.8 % (24.0-44.0); MEAN CORPUSCULAR HEMOGLOBIN 31.8 pg (27.0-33.0); MEAN CORPUSCULAR HGB CONC 33.3 g/dl (32.0-36.5); MEAN CORPUSCULAR VOLUME 95.4 fl (80.0-96.0); MONO # 0.8 10^3/uL (0.0-0.8); MONO % 6.5 % (0.0-5.0); NEUTROPHILS # 10.2 10^3/uL (1.8-7.7); NEUTROPHILS % 79.5 % (36.0-66.0); PLATELET COUNT, AUTOMATED 390 10^3/uL (150-450); RED BLOOD COUNT 3.71 10^6/uL (4.30-6.10); WHITE BLOOD COUNT 12.9 10^3/uL (4.0-10.0)
[2018-09-21 06:00] VITALS: BP 120/60
[2018-09-21 06:16] LABS: BLOOD UREA NITROGEN 7 MG/DL (7-18); CALCIUM LEVEL 7.8 MG/DL (8.5-10.1); CARBON DIOXIDE LEVEL 28 MEQ/L (21-32); CHLORIDE LEVEL 108 MEQ/L (98-107); CREATININE FOR GFR 0.89 MG/DL (0.70-1.30); GLOMERULAR FILTRATION RATE > 60.0 (>56); GLUCOSE, FASTING 113 MG/DL (70-100); POTASSIUM SERUM 3.6 MEQ/L (3.5-5.1); SODIUM LEVEL 140 MEQ/L (136-145)
[2018-09-21] MEDS: PANTOPRAZOLE 40MG INJ (PROTONIX) (C9113) IV SCH (08:59)
[2018-09-21] MEDS: FOLIC ACID 1 MG TAB PO SCH (09:00)
[2018-09-21 10:00] VITALS: BP 152/73
--- NOTE | 2018-09-21 10:42 | IPNPDOC ---
Text Note Date of Service The patient was seen on 09/21/18. NOTE SUBJECTIVE: No further abdominal pain overnight . No fever or chills, had 2 good liquid bowel movements yesterday. No nausea or vomiting. No fever or chills, no chest pain or sob. Has been walking. VITALS: As below General Exam: Positive: Alert, Cooperative, No Acute Distress Eye Exam: Positive: Conjunctiva & lids normal ENT Exam: Positive: Atraumatic Neck Exam: Positive: Supple Chest Exam: Positive: Clear to auscultation, Normal air movement Heart Exam: Positive: Rate Normal, Regular Rhythm Abdomen Exam: Positive: Normal bowel sounds, Tenderness (mild tenderness on RUQ and epigastric area; no guarding or rebound) Extremity Exam: Positive: Normal pulses; Negative: Edema Skin Exam: Negative: Nl turgor and temperature, Rash, Breakdown, Lesion, Pruritus, Other skin issue Neuro Exam: Positive: Normal Speech, Strength at 5/5 X4 ext Psych Exam: Positive: Mental status NL, Mood NL LAbs and Radiology: reviewed. Assessment and PLAN: Mr. Rothman is a 57 years old man who was recently admitted for gallstone pancreatitis and discharged home on 09/16. He underwent an ERCP on 09/12 with biliary sphincterotomy, balloon extraction of stones, and pancreatic duct stent placement. He was referred to Surgery follow up in 2-3 weeks for elective cholecystectomy. The pt returned to ER with right abdominal pain similar to his prior presentation. In ER, pt had WBC of 22K with normal vitals. Pancreatic and liver enzymes are normal. CT abdomen shows persistent purnima pancreatic edema unchanged from previous exam, and new evolving pseudocyst. GB and CBD are fine. Pancreatic duct stent has dislodged to colon. US shows gallbladder sludge, otherwise unremarkable. Patient was admitted for monitoring for complications from pancreatitis and infection Resolving Acute gallstone pancreatitis with possible new evolving pseudocyst formation pancreatic duct stent placed last admission has dislodged to colon with some new worsening of pain with elevated WBC continue with IVF,clear liquids. will give meropenem and deescalate once infection ruled out cultures negative till date GI consulted. Hypoglycemia resolved. probably as he is NPO History of anxiety continue paroxetine, benzodiazepine History of rheumatoid arthritis on methotrexate . DVT prophylaxis has been ordered. VS,Fishbone, I+O VS, Fishbone, I+O Laboratory Tests 09/21/18 05:12 Red Blood Count 3.71 L, Mean Corpuscular Volume 95.4, Mean Corpuscular Hemo globin 31.8, Mean Corpuscular Hemoglobin Concent 33.3, Red Cell Distribution Width 13.0, Neutrophils (%) (Auto) 79.5 H, Lymphocytes (%) (Auto) 8.8 L, Monocytes (%) (Auto) 6.5 H, Eosinophils (%) (Auto) 3.4 H, Basophils (%) (Auto) 0.6, Neutrophils # (Auto) 10.2 H, Lymphocytes # (Auto) 1.1 L, Monocytes # (Auto) 0.8, Eosinophils # (Auto) 0.4, Basophils # (Auto) 0.1, Calcium Level 7.8 L Vital Signs Date Time Temp Pulse Resp B/P (MAP) Pulse Ox O2 Delivery O2 Flow Rate FiO2 09/21/18 10:00 97.9 54 17 152/73 (99) 96 09/19/18 12:45 Room Air I&O- Last 24 Hours up to 6 AM 09/21/18 05:59 Intake Total 3812.5 ml Output Total 0 ml Balance 3812.5 ml TRICE BOWER MD September 21, 2018 10:42
[2018-09-21 14:00] VITALS: BP 130/65
[2018-09-21 18:00] VITALS: BP 142/60
[2018-09-21] MEDS: ALPRAZolam 0.25 MG TAB PO SCH (21:16)
[2018-09-21] MEDS: PARoxetine 20 MG TAB PO SCH (21:16)
[2018-09-21 22:00] VITALS: BP 156/88
[2018-09-22] MEDS: MEROPENEM INJ 1 GM in APPROPRIATE DILUENT 1 EA IV SCH ×2 (00:33→08:01)
[2018-09-22] MEDS: D5W/0.9% SODIUM CHLORIDE 1,000 ML IV SCH (05:02)
[2018-09-22 06:00] VITALS: BP 142/66
[2018-09-22 06:49] LABS: BASO # 0.1 10^3/uL (0.0-0.2); BASO % 0.7 % (0.0-1.0); EOS # 0.4 10^3/uL (0.0-0.50); EOS % 4.1 % (0.0-3.0); HEMATOCRIT 34.3 % (42.0-52.0); HEMOGLOBIN 11.3 g/dl (13.5-17.5); LYMPH # 1.3 10^3/uL (1.5-4.5); LYMPH % 11.8 % (24.0-44.0); MEAN CORPUSCULAR HEMOGLOBIN 31.7 pg (27.0-33.0); MEAN CORPUSCULAR HGB CONC 32.9 g/dl (32.0-36.5); MEAN CORPUSCULAR VOLUME 96.3 fl (80.0-96.0); MONO # 0.9 10^3/uL (0.0-0.8); NEUTROPHILS # 7.9 10^3/uL (1.8-7.7); NEUTROPHILS % 74.3 % (36.0-66.0); PLATELET COUNT, AUTOMATED 418 10^3/uL (150-450); RED BLOOD COUNT 3.56 10^6/uL (4.30-6.10); WHITE BLOOD COUNT 10.6 10^3/uL (4.0-10.0)
[2018-09-22 07:11] LABS: BLOOD UREA NITROGEN 4 MG/DL (7-18); CALCIUM LEVEL 7.9 MG/DL (8.5-10.1); CARBON DIOXIDE LEVEL 29 MEQ/L (21-32); CHLORIDE LEVEL 110 MEQ/L (98-107); GLOMERULAR FILTRATION RATE > 60.0 (>56); GLUCOSE, FASTING 106 MG/DL (70-100); POTASSIUM SERUM 3.6 MEQ/L (3.5-5.1); SODIUM LEVEL 142 MEQ/L (136-145)
[2018-09-22] MEDS: PANTOPRAZOLE 40MG INJ (PROTONIX) (C9113) IV SCH (08:01)
[2018-09-22] MEDS: FOLIC ACID 1 MG TAB PO SCH (08:01)
[2018-09-22] MEDS ORDERED: AUGM875T28 PO (10:28)
--- NOTE | 2018-09-22 10:37 | DS.PDOC ---
Discharge Summary General Date of Admission September 19, 2018 Date of Discharge 09/22/18 Specialist/Consultants Involve: Joaquim Garcia Discharge Summary PROCEDURES PERFORMED DURING STAY: [None]. DISCHARGE DIAGNOSES: Resolving acute gallstone pancreatitis with some worsening New Pseudocyst formation Rheumatoid arthritis Anxiety COMPLICATIONS/CHIEF COMPLAINT: Abdominal Pain. HISTORY OF PRESENT ILLNESS: See history and physical HOSPITAL COURSE: Mr. Rothman is a 57 years old man who was recently admitted for gallstone pancreatitis and discharged home on 09/16. He underwent an ERCP on 09/12 with biliary sphincterotomy, balloon extraction of stones, and pancreatic duct stent placement. He was referred to Surgery follow up in 2-3 weeks for elective cholecystectomy. The pt returned to ER with right abdominal pain similar to his prior presentation. In ER, pt had WBC of 22K with normal vitals. Pancreatic and liver enzymes are normal. CT abdomen shows persistent peripancreatic edema unchanged from previous exam, and new evolving pseudocyst. GB and CBD are fine. Pancreatic duct stent has dislodged to colon. US shows gallbladder sludge, otherwise unremarkable. Patient was admitted for monitoring for complications from pancreatitis and infection Resolving Acute gallstone pancreatitis with possible new evolving pseudocyst formation pancreatic duct stent placed last admission has dislodged to colon with some new worsening of pain with elevated WBC now improving. received 3 days of meropenem will discharge with Augmentin cultures negative till date GI consulted. Hypoglycemia resolved. History of anxiety continue paroxetine, benzodiazepine History of rheumatoid arthritis on methotrexate . DISCHARGE MEDICATIONS: Please see below. ALLERGIES: Please see below. PHYSICAL EXAMINATION ON DISCHARGE: VITAL SIGNS: Please see below. General Exam: Positive: Alert, Cooperative, No Acute Distress Eye Exam: Positive: Conjunctiva & lids normal ENT Exam: Positive: Atraumatic Neck Exam: Positive: Supple Chest Exam: Positive: Clear to auscultation, Normal air movement Heart Exam: Positive: Rate Normal, Regular Rhythm Abdomen Exam: Positive: Normal bowel sounds, Tenderness (mild tenderness on RUQ and epigastric area; no guarding or rebound) Extremity Exam: Positive: Normal pulses; Negative: Edema Skin Exam: Negative: Nl turgor and temperature, Rash, Breakdown, Lesion, Pruritus, Other skin issue Neuro Exam: Positive: Normal Speech, Strength at 5/5 X4 ext Psych Exam: Positive: Mental status NL, Mood NL LABORATORY DATA: Please see below. ACTIVITY: [As tolerated]. DIET: Low at low cholesterol DISCHARGE PLAN: Home DISPOSITION: Home DISCHARGE INSTRUCTIONS: Follow up with PMD in 1 week Follow up With Dr Story DISCHARGE CONDITION: [Stable]. TIME SPENT ON DISCHARGE: Greater than 30 minutes. Vital Signs/I&Os Vital Signs Date Time Temp Pulse Resp B/P (MAP) Pulse Ox O2 Delivery O2 Flow Rate FiO2 09/22/18 06:00 98.7 62 16 142/66 (91) 95 09/19/18 12:45 Room Air I&O- Last 24 Hours up to 6 AM 09/22/18 06:00 Intake Total 2365 ml Balance 2365 ml Laboratory Data Labs 24H Laboratory Tests 2 09/21/18 11:27: Bedside Glucose (Misc Panel) 114H 09/21/18 17:16: Bedside Glucose (Misc Panel) 92 09/21/18 23:51: Bedside Glucose (Misc Panel) 107H 09/22/18 06:00: Immature Granulocyte % (Auto) 1.1, White Blood Count 10.6H, Red Blood Count 3.56L, Hemoglobin 11.3L, Hematocrit 34.3L, Mean Corpuscular Volume 96.3H, Mean Corpuscular Hemoglobin 31.7, Mean Corpuscular Hemoglobin Concent 32.9, Red Cell Distribution Width 13.1, Platelet Count 418, Neutrophils (%) (Auto) 74.3H, Lymphocytes (%) (Auto) 11.8L, Monocytes (%) (Auto) 8.0H, Eosinophils (%) (Auto) 4.1H, Basophils (%) (Auto) 0.7, Neutrophils # (Auto) 7.9H, Lymphocytes # (Auto) 1.3L, Monocytes # (Auto) 0.9H, Eosinophils # (Auto) 0.4, Basophils # (Auto) 0.1, Nucleated Red Blood Cells % (auto) 0.0, Anion Gap 3L, Glomerular Filtration Rate > 60.0, Blood Urea Nitrogen 4L, Creatinine 0.90, Sodium Level 142, Potassium Level 3.6, Chloride Level 110H, Carbon Dioxide Level 29, Calcium Level 7.9L 09/22/18 06:27: Bedside Glucose (Misc Panel) 108H CBC/BMP Laboratory Tests 09/22/18 06:00 Red Blood Count 3.56 L, Mean Corpuscular Volume 96.3 H, Mean Corpuscular He moglobin 31.7, Mean Corpuscular Hemoglobin Concent 32.9, Red Cell Distribution Width 13.1, Neutrophils (%) (Auto) 74.3 H, Lymphocytes (%) (Auto) 11.8 L, Monocytes (%) (Auto) 8.0 H, Eosinophils (%) (Auto) 4.1 H, Basophils (%) (Auto) 0.7, Neutrophils # (Auto) 7.9 H, Lymphocytes # (Auto) 1.3 L, Monocytes # (Auto) 0.9 H, Eosinophils # (Auto) 0.4, Basophils # (Auto) 0.1, Calcium Level 7.9 L FSBS Laboratory Tests Test 09/21/18 11:27 09/21/18 17:16 09/21/18 23:51 09/22/18 06:27 Range/Units Bedside Glucose (Misc Panel) 114 92 107 108 70-105 MG/DL Microbiology Microbiology 09/19/18 Blood Culture - Preliminary, Resulted No Growth after 72 hours. All specime... 09/19/18 Blood Culture - Preliminary, Resulted No Growth after 72 hours. All specime... 09/20/18 Gastrointestinal Tract Panel (PCR) - Final, Complete Discharge Medications Scheduled Alprazolam (Xanax) 0.25 Mg Tab, 0.5 MG PO QHS, (Reported) Amoxicillin/Potassium Clav (Augmentin 875-125 Tablet) 1 Each Tablet, 875 MG PO BID Folic Acid (Folic Acid) 1 Mg Tablet, 1 MG PO DAILY, (Reported) Methotrexate Sodium (Methotrexate) 2.5 Mg Tablet, 25 MG PO 1XWK, (Reported) Paroxetine HCl (Paroxetine HCl) 20 Mg Tab, 20 MG PO QHS, (Reported) Allergies Coded Allergies: No Known Allergies (Unverified , 09/11/18) TRICE BOWER MD September 22, 2018 10:37
--- NOTE | 2018-09-24 16:46 | CR ---
DATE OF CONSULTATION: 09/21/2018 This is a 57-year-old white male who has been readmitted to [facility] for pancreatitis. The patient had a bout of pancreatitis and was admitted to [facility] on 09/16. The patient was felt to have gallstone pancreatitis. He underwent an ERCP with sphincterotomy and balloon extraction of stone and a pancreatic stent was placed. The patient did immediately well after the ERCP and pancreatic stent placement, however, over several days the patient abdominal pain became increased and he had some nausea without vomiting. The patient was brought to the emergency room and had a white count 22,000 and enzymes were apparently normal. CT of the abdomen on admission showed inflammation of the pancreas consistent with a possibly developing pseudocyst. The patient's common bile duct apparently appeared to be normal. Pancreatic stent was seen in the ascending colon which became dislodged. The patient's pancreatitis was probably continued from the episode of 09/16. Imaging studies again on admission on 09/19/2018 showed inflammation of the pancreas. Liver was normal. Bile ducts showed no dilatation. The patient had pancreatitis somewhat similar to one bout previously and there was a question of debris developing consistent with an early possible pseudocyst. The pigtail stent was noted in the ascending colon. Laboratory studies on this admission showed a white count of 22,000 on admission. The patient was given IV antibiotics and on the day of consultation the patient's white count was down to 12,900, hemoglobin and hematocrit 11.8 and 35.4. Patient's chemistry was good. On 09/19 he had a total bilirubin 0.6, AST was 48, ALT was 85. Alkaline phosphatase was 144. The patient's lipase on 09/19 was 149 and on 09/20 was 158. PHYSICAL EXAMINATION: General: He is a well-developed, well-nourished white male in no acute distress. Appears stated age. Chest is clear. Cardiovascular exam showed regular rhythm. No murmurs or gallops. Normal physiological split of S1, S2. Abdomen: Soft, distended, some mild epigastric tenderness. No hepatosplenomegaly. Bowel sounds were positive. ANALYSIS: Evolving pancreatitis with possible formation of pseudocyst. The patient seems to be doing well on IV antibiotics. PLAN: Will be to start advancing the patient's diet and if he is able tolerate this, outpatient followup should be considered with Dr. Bryden who will follow the pancreas and is possibly forming a pseudocyst and schedule his cholecystectomy at appropriate time. Continue fluids and IV antibiotics. Will start the patient on a diet since he does not seem to have much pain.
== END 2018-09-22 12:49 | disposition home or self-care (01) | DRG 282 ==
LOC: M ED 22:38 → M ED INP 22:39 → UNDOADMOB 22:39 → M MSPAV 09-19 13:58 → M ED INP 09-19 13:58 → OBSVTOIN 09-21 17:29 → INTOOBSV 09-21 17:29 → M MSPAV 09-21 17:30 → OBSVTOIN 09-21 17:30
PROVIDERS: ADMIT Internal Medicine; ATTEND Internal Medicine Nephrology
DX: K85.10 Biliary acute pancreatitis without necrosis or infection (principal); F32.9 Major depressive disorder, single episode, unspecified; M06.9 Rheumatoid arthritis, unspecified; E16.2 Hypoglycemia, unspecified; F41.9 Anxiety disorder, unspecified; K86.3 Pseudocyst of pancreas; Z79.899 Other long term (current) drug therapy

== ENCOUNTER → 2018-11-05 | Outpatient (CLI) | payer BC ==
[~2018-11-05] MED LIST changes: +AUGM875T28 PO; +CIPR500T3 PO; +METR-265 PO; +NEUR300C PO; +TRAM50TA2 PO
[2018-11-05 12:10] LABS: ALBUMIN 3.3 GM/DL (3.2-5.2); ALT/SGPT 32 U/L (12-78); AMYLASE 64 U/L (25-115); BILIRUBIN,TOTAL 0.6 MG/DL (0.2-1.0); BLOOD UREA NITROGEN 13 MG/DL (7-18); CALCIUM LEVEL 8.8 MG/DL (8.5-10.1); CARBON DIOXIDE LEVEL 32 MEQ/L (21-32); CHLORIDE LEVEL 109 MEQ/L (98-107); CREATININE FOR GFR 0.96 MG/DL (0.70-1.30); GLOMERULAR FILTRATION RATE > 60.0 (>56); GLUCOSE, FASTING 125 MG/DL (70-100); LIPASE 276 U/L (73-393); POTASSIUM SERUM 4.5 MEQ/L (3.5-5.1); SODIUM LEVEL 143 MEQ/L (136-145); TOTAL PROTEIN 6.5 GM/DL (6.4-8.2)
[2018-11-05 12:11] LABS: BASO # 0.1 10^3/uL (0.0-0.2); BASO % 0.9 % (0.0-1.0); EOS # 0.4 10^3/uL (0.0-0.50); EOS % 7.8 % (0.0-3.0); HEMATOCRIT 40.2 % (42.0-52.0); HEMOGLOBIN 13.1 g/dl (13.5-17.5); LYMPH # 1.5 10^3/uL (1.5-4.5); LYMPH % 27.9 % (24.0-44.0); MEAN CORPUSCULAR HGB CONC 32.6 g/dl (32.0-36.5); MONO # 0.3 10^3/uL (0.0-0.8); MONO % 5.9 % (0.0-5.0); NEUTROPHILS # 3.1 10^3/uL (1.8-7.7); NEUTROPHILS % 57.3 % (36.0-66.0); PLATELET COUNT, AUTOMATED 236 10^3/uL (150-450); WHITE BLOOD COUNT 5.4 10^3/uL (4.0-10.0)
[2018-11-05 12:18] LABS: PROTHROMBIN TIME 12.9 SECONDS (11.8-14.0)
[2018-11-05 12:43] LABS: HEMOGLOBIN A1c 5.7 %
== END ==
LOC: M LRY 08:45
PROVIDERS: ATTEND Physician Assistant
DX: Z01.812 Encounter for preprocedural laboratory examination (principal)

== ENCOUNTER 2018-11-14 08:27 | Day surgery (SDC) | payer BC ==
[~2018-11-14] VITALS: Ht 177.8 cm; Wt 77.1 kg
[~2018-11-14 08:27] MED LIST changes: +ACETAMINOPHEN 1000MG 100ML IV BTL (OFIRMEV) (J0131 PER 10MG) As Ordered ONE; +KETAMINE HCL 200 MG/20 ML VIAL As Ordered ONE; +KETOROLAC 60 MG/2 ML VIAL (J1885) As Ordered ONE; +LIDOCAINE 1% MDV 20ML VIAL SQ PRN; +LIDOCAINE 2% INJ 100 MG/5 ML SDV (FOR ANES.) As Ordered ONE; +LR 1,000 ML IV ONE; +MIDAZOLAM INJ 2 MG/2 ML VIAL (J2250) As Ordered ONE; +ONDANSETRON 4MG/2ML VIAL (J2405) As Ordered ONE; +ROCURONIUM BROMIDE 50 MG/5 ML VIAL As Ordered ONE; +SUGAMMADEX SODIUM 500 MG/5 ML VIAL (BRIDION) As Ordered ONE; +dexameTHASONE 4 MG/ML 1ML VIAL (J1100) As Ordered ONE; +fentaNYL 250 MCG/5 ML INJECTION (J3010) As Ordered ONE
[2018-11-14] MEDS ORDERED: PROPOFOL 500 MG/50 ML VIAL As Ordered ONE ×2 (08:40→09:14)
[2018-11-14] MEDS ORDERED: BUPIVACAINE/EPIN 0.25% 30 ML VIAL As Ordered ONE (09:57)
[2018-11-14] MEDS ORDERED: LIDOCAINE 2% INJ 100 MG/5 ML SDV (FOR ANES.) As Ordered ONE (10:30)
[2018-11-14] MEDS ORDERED: MIDAZOLAM INJ 2 MG/2 ML VIAL (J2250) As Ordered ONE (10:31)
[2018-11-14] MEDS ORDERED: EPINEPHrine INJ 1 MG/ML 1ML AMP As Ordered ONE (10:46)
[2018-11-14] MEDS ORDERED: ACETAMINOPHEN 1000MG 100ML IV BTL (OFIRMEV) (J0131 PER 10MG) As Ordered ONE (10:49)
[2018-11-14] MEDS ORDERED: oxyCODONE 5MG TAB PO PRN (12:00)
[2018-11-14] MEDS ORDERED: ONDANSETRON 4MG/2ML VIAL (J2405) IV PRN (12:00)
[2018-11-14] MEDS ORDERED: hydrALAZINE INJ 20 MG/ML VIAL IV SCH (12:00)
[2018-11-14] MEDS ORDERED: HYDROMORPHONE HCL 0.5 MG/ 0.5 ML SYRINGE (J1170 PER 1) IV PRN (12:00)
[2018-11-14] MEDS ORDERED: LR 1,000 ML IV SCH (12:00)
[2018-11-14] MEDS ORDERED: fentaNYL 100 MCG/2 ML INJECTION (J3010) IV PRN (12:00)
[2018-11-14 13:35] VITALS: BP 164/79
--- NOTE | 2018-11-14 14:07 | RO ---
DATE OF PROCEDURE: 11/14/2018 PREOPERATIVE DIAGNOSIS: Acute cholecystitis. POSTOPERATIVE DIAGNOSIS: Acute cholecystitis. PROCEDURE: Laparoscopic cholecystectomy. SURGEON: Dr. Lonny Story NEWSPAPER INSERTER: Cherry Quevedo ANESTHESIA: General. ESTIMATED BLOOD LOSS: 5 mL. COMPLICATIONS: None. INDICATIONS FOR PROCEDURE: The patient is a 57-year-old male who was recently in the hospital for acute cholecystitis with choledocholithiasis. He underwent an ERCP and then followed up in the office as an outpatient to discuss surgery. Recommendation is to proceed with robotic cholecystectomy. Risks and benefits of the procedure not limited to, but including bleeding, infection, hernia formation, damage to surrounding structures, need for further surgery were discussed in detail with the patient and informed consent was obtained and the procedure was planned. DESCRIPTION OF PROCEDURE: The patient brought back to operating room seven, after sufficient sedation, the abdomen was sterilely prepped and draped. Next a time-out was done to confirm proper patient and proper procedure. Following that an 8 mm incision made in left upper quadrant, Veress needle inserted and the abdomen was insufflated to 15 mmHg. Next the Veress needle was removed and an 8 mm robotic port was used to gain access to the abdomen. Once the abdomen was entered, three more robotic ports were placed in a vertical line from the left upper quadrant to the right lower quadrant. Once this was completed, the robot was connected to the ports. The lateral arm was used elevate the fundus of gallbladder up towards right shoulder. Next using a combination of sharp and blunt dissection I was able to dissect through around the fundus of the gallbladder down to the neck freeing up the peritoneal reflections onto the gallbladder, dissect out the cystic duct and cystic artery, and then they were both doubly clipped and cut. The gallbladder was then dissected free from the gallbladder fossa using cautery. The gallbladder was then removed intact through a 5 mm EndoCatch bag. Once the gallbladder was removed, the abdomen was examined. The abdomen was then desufflated. Skin incisions closed with #4-0 Vicryl subcuticular sutures. The abdomen cleaned and dried. Steri-Strips, 4x4 and tape were applied, thus ending the procedure.
== END 2018-11-14 13:46 | disposition home or self-care (01) ==
LOC: M SDC 08:27
PROVIDERS: ATTEND Surgery
DX: K81.2 Acute cholecystitis with chronic cholecystitis (principal); F41.9 Anxiety disorder, unspecified; F32.9 Major depressive disorder, single episode, unspecified; Z79.899 Other long term (current) drug therapy
CPT/HCPCS: 47562; 88304; J0131; J1100; J1885; J2250; J2405; J3010

== ENCOUNTER → 2019-04-02 | Outpatient (CLI) | payer BC ==
[~2019-04-02] MED LIST changes: -ACETAMINOPHEN 1000MG 100ML IV BTL (OFIRMEV) (J0131 PER 10MG) As Ordered ONE; -KETAMINE HCL 200 MG/20 ML VIAL As Ordered ONE; -KETOROLAC 60 MG/2 ML VIAL (J1885) As Ordered ONE; -LIDOCAINE 1% MDV 20ML VIAL SQ PRN; -LIDOCAINE 2% INJ 100 MG/5 ML SDV (FOR ANES.) As Ordered ONE; -LR 1,000 ML IV ONE; -MIDAZOLAM INJ 2 MG/2 ML VIAL (J2250) As Ordered ONE; -ONDANSETRON 4MG/2ML VIAL (J2405) As Ordered ONE; -ROCURONIUM BROMIDE 50 MG/5 ML VIAL As Ordered ONE; -SUGAMMADEX SODIUM 500 MG/5 ML VIAL (BRIDION) As Ordered ONE; -dexameTHASONE 4 MG/ML 1ML VIAL (J1100) As Ordered ONE; -fentaNYL 250 MCG/5 ML INJECTION (J3010) As Ordered ONE
[2019-04-02 12:58] LABS: ALBUMIN 3.5 GM/DL (3.2-5.2); ALT/SGPT 66 U/L (12-78); BILIRUBIN,DIRECT < 0.1 MG/DL (0.0-0.2); BILIRUBIN,TOTAL 0.7 MG/DL (0.2-1.0); TOTAL PROTEIN 6.3 GM/DL (6.4-8.2)
== END ==
LOC: M LRY 09:54
PROVIDERS: ATTEND Physician Assistant
DX: M25.50 Pain in unspecified joint (principal)

== ENCOUNTER 2019-06-13 09:29 | Emergency (ER) | payer BC ==
[~2019-06-13] VITALS: Ht 177.8 cm; Wt 85.6 kg
[2019-06-13 10:27] LABS: APPEARANCE, URINE CLEAR (CLEAR); BACTERIA, URINE AUTO NEGATIVE (NEGATIVE); BILIRUBIN, URINE AUTO NEGATIVE (NEGATIVE); BLOOD, URINE BLOOD NEGATIVE (NEGATIVE); COLOR, URINE YELLOW (YELLOW); GLUCOSE, URINE (UA) AUTO NEGATIVE (NEGATIVE); KETONE, URINE AUTO NEGATIVE (NEGATIVE); LEUKOCYTE ESTERASE, URINE AUTO NEGATIVE (NEGATIVE); MUCUS, URINE SMALL (NEGATIVE); NITRITE, URINE AUTO NEGATIVE (NEGATIVE); PROTEIN, URINE AUTO NEGATIVE (NEGATIVE); RBC, URINE AUTO 3 /HPF (0-3); SQUAMOUS EPITHELIAL CELL UR AU 0 /HPF (0-6); UROBILINOGEN, URINE AUTO 0.2 mg/dL (0.0-2.0); WBC, URINE AUTO 0 /HPF (0-3)
[2019-06-13 10:31] LABS: BASO % 0.4 % (0.0-1.0); EOS # 0.3 10^3/uL (0.0-0.5); EOS % 3.4 % (0.0-3.0); HEMATOCRIT 42.1 % (42.0-52.0); HEMOGLOBIN 13.6 g/dl (13.5-17.5); LYMPH # 1.1 10^3/uL (1.5-5.0); LYMPH % 12.5 % (24.0-44.0); MEAN CORPUSCULAR HEMOGLOBIN 31.6 pg (27.0-33.0); MEAN CORPUSCULAR HGB CONC 32.3 g/dl (32.0-36.5); MEAN CORPUSCULAR VOLUME 97.7 fl (80.0-96.0); MONO # 0.6 10^3/uL (0.0-0.8); MONO % 6.9 % (0.0-5.0); NEUTROPHILS # 6.8 10^3/uL (1.5-8.5); NEUTROPHILS % 76.4 % (36.0-66.0); PLATELET COUNT, AUTOMATED 214 10^3/uL (150-450); RED BLOOD COUNT 4.31 10^6/uL (4.30-6.10)
[2019-06-13 10:55] LABS: ALBUMIN 3.5 GM/DL (3.2-5.2); BILIRUBIN,DIRECT 0.2 MG/DL (0.0-0.2); BILIRUBIN,TOTAL 0.6 MG/DL (0.2-1.0); TOTAL PROTEIN 6.4 GM/DL (6.4-8.2)
[2019-06-13] MEDS ORDERED: ISOVUE-370 76% 100ML VIAL (Q9967) As Ordered ONE (11:14)
--- NOTE | 2019-06-13 12:03 | REP ---
CT ABDOMEN PELVIS WITH IV CONTRAST ONLY: 06/13/2019 COMPARISON: CT 09/19/2018. CLINICAL HISTORY: Right upper quadrant pain. History of pancreatitis. Normal lipase. TECHNIQUE: Bolus of 100 mL Isovue 370 and scanning through the abdomen pelvis with coronal and sagittal reconstructions provided. FINDINGS: CT ABDOMEN: Minor dependent atelectatic change is seen posteriorly in the lower lung zones. Small pleural effusions on previous study are resolved. No infiltrate, atelectasis or mass. No pulmonary nodule. Heart not enlarged. No pericardial thickening or effusion. No hiatal hernia. Liver, spleen and adrenal glands unchanged. Subcentimeter right hepatic lobe cyst as before. The pancreas shows no mass, ductal dilatation, calcification in the common duct or pancreatic ductal enlargement. No pancreatic mass, peripancreatic fluid or adenopathy. The aorta is without aneurysm. There is no periaortic, peripancreatic or other mesenteric/retroperitoneal pathologic sized lymphadenopathy. There are a few small nodes in the gastroesophageal junction similar to previous studies and normal finding. Small bowel loops are fluid filled but not enlarged. No air-fluid levels. Colon is collapsed. Even allowing for that there is slight wall thickening of the right, transverse and left colon. There appears to be transition with less thickness of the wall from the mid distal transverse colon into the left colon. I do not see signs of diverticulosis or diverticulitis. Gallbladder absent. Lung window review of all CT slices abdomen pelvis shows no perforation or free air. There is no upper abdominal or mesenteric ascites. There is no ventral hernia. CT PELVIS: Distal left colon, sigmoid and rectum collapsed. No inflammatory changes are clearly defined. The bladder shows no focal lesion, mass or stone. The kidneys show no hydronephrosis, stone or mass. No hydroureter or ureteral stone. No solid renal mass. Small scar laterally in the lower pole of the right kidney. There is no ventral or inguinal hernia nor pathologic inguinal adenopathy. No pelvic pathologic sized adenopathy. Bone windows of the abdomen and pelvis show marginal osteophytes and some degenerative disc changes with facet arthropathy, mild. Lower thoracic levels and visualized ribs intact. The sacrum, SI joints, pelvis and hip show only minimal degenerative change and no destructive lesions or fractures. IMPRESSION: 1. Status post cholecystectomy with no evidence of pancreatitis, peripancreatic inflammatory change, adenopathy or mass. A few small nodes in the gastroesophageal region, unchanged. Liver, spleen, adrenal glands and kidneys without acute finding. No renal, ureteral or bladder stone. 2. Collapse of the colon with thickening of the wall particularly the right due to the mid transverse colon. I could not exclude some colitis in this region. There is no diverticulosis or diverticulitis and no ascites, free air, perforation or abscess. 3. The small bowel loops are not dilated but mostly fluid-filled. No air-fluid levels. Findings might reflect some gastroenteritis or ileus. No other significant finding. Electronically Signed by Dylon Hinson MD 06/13/2019 07:57 P
[2019-06-13] MEDS ORDERED: methylPREDNISolone INJ 125 MG/2 ML VIAL (J2930) IV ONE (12:15)
[2019-06-13] MEDS ORDERED: NS 1,000 ML IV ONE (12:15)
[2019-06-13 13:26] VITALS: BP 162/72
== END 2019-06-13 13:37 | disposition home or self-care (01) ==
LOC: M ED 09:29
DX: K51.919 Ulcerative colitis, unspecified with unspecified complications (principal); A09 Infectious gastroenteritis and colitis, unspecified; Z79.899 Other long term (current) drug therapy; Z85.07 Personal history of malignant neoplasm of pancreas
CPT/HCPCS: 74177; 80047; 80076; 81001; 82150; 83690; 85025; 96361; 96374; 99284; J2930; Q9967

== ENCOUNTER → 2019-06-16 | Outpatient (CLI) | payer BC ==
[2019-06-16 20:40] LABS: ALBUMIN 3.6 GM/DL (3.2-5.2); ALT/SGPT 39 U/L (12-78); BILIRUBIN,TOTAL 0.4 MG/DL (0.2-1.0); BLOOD UREA NITROGEN 14 MG/DL (7-18); C REACTIVE PROTEIN QUANTITATIV 0.45 MG/DL (0.00-0.30); CALCIUM LEVEL 8.2 MG/DL (8.5-10.1); CARBON DIOXIDE LEVEL 29 MEQ/L (21-32); CHLORIDE LEVEL 109 MEQ/L (98-107); CREATININE FOR GFR 0.93 MG/DL (0.70-1.30); GLOMERULAR FILTRATION RATE > 60.0 (>56); GLUCOSE, FASTING 109 MG/DL (70-100); POTASSIUM SERUM 4.2 MEQ/L (3.5-5.1); SODIUM LEVEL 142 MEQ/L (136-145); TOTAL PROTEIN 6.3 GM/DL (6.4-8.2)
[2019-06-16 20:49] LABS: BASO # 0.1 10^3/uL (0.0-0.2); BASO % 0.7 % (0.0-1.0); EOS # 0.2 10^3/uL (0.0-0.5); EOS % 2.2 % (0.0-3.0); HEMATOCRIT 39.1 % (42.0-52.0); HEMOGLOBIN 12.8 g/dl (13.5-17.5); LYMPH # 1.5 10^3/uL (1.5-5.0); LYMPH % 14.3 % (24.0-44.0); MEAN CORPUSCULAR HGB CONC 32.7 g/dl (32.0-36.5); MEAN CORPUSCULAR VOLUME 97.8 fl (80.0-96.0); MONO # 0.7 10^3/uL (0.0-0.8); MONO % 6.7 % (0.0-5.0); NEUTROPHILS # 8.1 10^3/uL (1.5-8.5); NEUTROPHILS % 75.7 % (36.0-66.0); PLATELET COUNT, AUTOMATED 273 10^3/uL (150-450); WHITE BLOOD COUNT 10.7 10^3/uL (4.0-10.0)
== END ==
LOC: M LRY 16:55
PROVIDERS: ATTEND Physician Assistant
DX: M05.79 Rheumatoid arthritis with rheumatoid factor of multiple sites without organ or systems involvement (principal)

== ENCOUNTER → 2019-10-13 | Outpatient (CLI) | payer BC ==
[2019-10-13 18:54] LABS: BASO # 0.1 10^3/uL (0.0-0.2); BASO % 1.1 % (0.0-1.0); EOS # 0.3 10^3/uL (0.0-0.5); EOS % 4.7 % (0.0-3.0); HEMATOCRIT 40.7 % (42.0-52.0); HEMOGLOBIN 13.7 g/dl (13.5-17.5); LYMPH # 1.4 10^3/uL (1.5-5.0); LYMPH % 21.9 % (24.0-44.0); MEAN CORPUSCULAR HEMOGLOBIN 32.6 pg (27.0-33.0); MEAN CORPUSCULAR HGB CONC 33.7 g/dl (32.0-36.5); MEAN CORPUSCULAR VOLUME 96.9 fl (80.0-96.0); MONO # 0.6 10^3/uL (0.0-0.8); MONO % 9.4 % (0.0-5.0); NEUTROPHILS # 3.9 10^3/uL (1.5-8.5); NEUTROPHILS % 62.6 % (36.0-66.0); PLATELET COUNT, AUTOMATED 219 10^3/uL (150-450); WHITE BLOOD COUNT 6.2 10^3/uL (4.0-10.0)
[2019-10-13 19:16] LABS: ALBUMIN 3.7 GM/DL (3.2-5.2); ALT/SGPT 139 U/L (12-78); BILIRUBIN,TOTAL 0.4 MG/DL (0.2-1.0); BLOOD UREA NITROGEN 18 MG/DL (7-18); C REACTIVE PROTEIN QUANTITATIV 0.31 MG/DL (0.00-0.30); CALCIUM LEVEL 8.3 MG/DL (8.5-10.1); CARBON DIOXIDE LEVEL 26 MEQ/L (21-32); CHLORIDE LEVEL 111 MEQ/L (98-107); GLOMERULAR FILTRATION RATE > 60.0 (>56); GLUCOSE, FASTING 82 MG/DL (70-100); POTASSIUM SERUM 4.3 MEQ/L (3.5-5.1); SODIUM LEVEL 143 MEQ/L (136-145); TOTAL PROTEIN 6.6 GM/DL (6.4-8.2)
== END ==
LOC: M LRY 14:33
PROVIDERS: ATTEND Physician Assistant
DX: M05.79 Rheumatoid arthritis with rheumatoid factor of multiple sites without organ or systems involvement (principal)

== ENCOUNTER → 2019-12-16 | Outpatient (REF) | payer BC ==
[2020-01-11 09:15] LABS: BASO # 0.1 10^3/uL (0.0-0.2); BASO % 0.8 % (0.0-1.0); EOS # 0.4 10^3/uL (0.0-0.5); EOS % 6.6 % (0.0-3.0); HEMATOCRIT 43.7 % (42.0-52.0); HEMOGLOBIN 14.5 g/dl (13.5-17.5); LYMPH # 1.3 10^3/uL (1.5-5.0); LYMPH % 20.1 % (24.0-44.0); MEAN CORPUSCULAR HEMOGLOBIN 32.4 pg (27.0-33.0); MEAN CORPUSCULAR HGB CONC 33.2 g/dl (32.0-36.5); MEAN CORPUSCULAR VOLUME 97.5 fl (80.0-96.0); MONO # 0.6 10^3/uL (0.0-0.8); NEUTROPHILS # 4.1 10^3/uL (1.5-8.5); PLATELET COUNT, AUTOMATED 199 10^3/uL (150-450); RED BLOOD COUNT 4.48 10^6/uL (4.30-6.10); WHITE BLOOD COUNT 6.6 10^3/uL (4.0-10.0)
[2020-01-21 07:03] LABS: ALBUMIN 3.7 GM/DL (3.2-5.2); ALT/SGPT 68 U/L (12-78); BILIRUBIN,TOTAL 0.6 MG/DL (0.2-1.0); BLOOD UREA NITROGEN 14 MG/DL (7-18); CARBON DIOXIDE LEVEL 33 MEQ/L (21-32); CHLORIDE LEVEL 108 MEQ/L (98-107); CREATININE FOR GFR 1.12 MG/DL (0.70-1.30); GLOMERULAR FILTRATION RATE > 60.0 (>56); GLUCOSE, FASTING 78 MG/DL (70-100); HEMOGLOBIN A1c 5.5 %; POTASSIUM SERUM 4.5 MEQ/L (3.5-5.1); SODIUM LEVEL 141 MEQ/L (136-145); TOTAL PROTEIN 6.4 GM/DL (6.4-8.2)
== END ==
LOC: M LRY 08:15
PROVIDERS: ATTEND Physician Assistant
DX: Z13.220 Encounter for screening for lipoid disorders (principal); Z13.1 Encounter for screening for diabetes mellitus; Z12.5 Encounter for screening for malignant neoplasm of prostate
CPT/HCPCS: 36415; 80053; 80061; 83036; 85025; G0103

== ENCOUNTER → 2020-06-16 | Outpatient (CLI) | payer BC ==
[2020-06-16 11:45] LABS: BASO % 0.5 % (0.0-1.0); EOS # 0.5 10^3/uL (0.0-0.5); EOS % 8.2 % (0.0-3.0); HEMATOCRIT 44.4 % (42.0-52.0); HEMOGLOBIN 14.7 g/dl (13.5-17.5); LYMPH # 1.6 10^3/uL (1.5-5.0); LYMPH % 29.2 % (24.0-44.0); MEAN CORPUSCULAR HEMOGLOBIN 32.7 pg (27.0-33.0); MEAN CORPUSCULAR HGB CONC 33.1 g/dl (32.0-36.5); MEAN CORPUSCULAR VOLUME 98.7 fl (80.0-96.0); MONO # 0.5 10^3/uL (0.0-0.8); MONO % 8.8 % (0.0-5.0); NEUTROPHILS # 2.9 10^3/uL (1.5-8.5); NEUTROPHILS % 53.1 % (36.0-66.0); PLATELET COUNT, AUTOMATED 194 10^3/uL (150-450); WHITE BLOOD COUNT 5.5 10^3/uL (4.0-10.0)
[2020-06-16 12:49] LABS: ALBUMIN 3.5 GM/DL (3.2-5.2); ALT/SGPT 63 U/L (12-78); BILIRUBIN,TOTAL 0.7 MG/DL (0.2-1.0); BLOOD UREA NITROGEN 12 MG/DL (7-18); C REACTIVE PROTEIN QUANTITATIV 0.44 MG/DL (0.00-0.30); CALCIUM LEVEL 9.1 MG/DL (8.5-10.1); CARBON DIOXIDE LEVEL 32 MEQ/L (21-32); CHLORIDE LEVEL 105 MEQ/L (98-107); GLOMERULAR FILTRATION RATE > 60.0 (>56); GLUCOSE, FASTING 100 MG/DL (70-100); POTASSIUM SERUM 4.2 MEQ/L (3.5-5.1); SODIUM LEVEL 142 MEQ/L (136-145); TOTAL PROTEIN 6.3 GM/DL (6.4-8.2)
== END ==
LOC: M WUC 09:46
PROVIDERS: ATTEND Physician Assistant
DX: M05.79 Rheumatoid arthritis with rheumatoid factor of multiple sites without organ or systems involvement (principal)

== ENCOUNTER → 2020-08-24 | Outpatient (REF) | payer BC | LOC: M LAB REF 18:35 | PROVIDERS: ATTEND Family Medicine | DX: R68.83 Chills (without fever) (principal); R07.9 Chest pain, unspecified ==

== ENCOUNTER → 2020-08-24 | Outpatient (CLI) | payer BC ==
[2020-08-24 17:10] LABS: BASO # 0.1 10^3/uL (0.0-0.2); BASO % 0.5 % (0.0-1.0); EOS # 0.2 10^3/uL (0.0-0.5); HEMATOCRIT 43.5 % (42.0-52.0); HEMOGLOBIN 14.5 g/dl (13.5-17.5); LYMPH # 1.7 10^3/uL (1.5-5.0); LYMPH % 14.6 % (24.0-44.0); MEAN CORPUSCULAR HEMOGLOBIN 32.3 pg (27.0-33.0); MEAN CORPUSCULAR HGB CONC 33.3 g/dl (32.0-36.5); MEAN CORPUSCULAR VOLUME 96.9 fl (80.0-96.0); MONO # 0.7 10^3/uL (0.0-0.8); MONO % 5.9 % (2.0-8.0); NEUTROPHILS # 8.7 10^3/uL (1.5-8.5); NEUTROPHILS % 76.5 % (36.0-66.0); PLATELET COUNT, AUTOMATED 233 10^3/uL (150-450); RED BLOOD COUNT 4.49 10^6/uL (4.30-6.10); WHITE BLOOD COUNT 11.4 10^3/uL (4.0-10.0)
[2020-08-24 17:31] LABS: ALBUMIN 3.6 GM/DL (3.2-5.2); ALT/SGPT 25 U/L (12-78); BILIRUBIN,TOTAL 0.3 MG/DL (0.2-1.0); BLOOD UREA NITROGEN 13 MG/DL (7-18); CARBON DIOXIDE LEVEL 30 MEQ/L (21-32); CHLORIDE LEVEL 109 MEQ/L (98-107); CK-MB VALUE MASS 1.9 NG/ML (<3.6); CPK CREATINE PHOSPHOKINASE 65 U/L (39-308); CREATININE FOR GFR 0.99 MG/DL (0.70-1.30); GLOMERULAR FILTRATION RATE > 60.0 (>56); GLUCOSE, FASTING 112 MG/DL (70-100); MB/CK RELATIVE INDEX 2.92 (< OR =4); POTASSIUM SERUM 4.5 MEQ/L (3.5-5.1); SODIUM LEVEL 142 MEQ/L (136-145); TOTAL PROTEIN 6.8 GM/DL (6.4-8.2); TROPONIN I < 0.02 NG/ML (< 0.10)
[2020-08-24 17:56] LABS: ERYTHROCYTE SEDIMENTATION RATE 15 mm/hr (0-20)
== END ==
LOC: M LAB 16:45
PROVIDERS: ATTEND Family Medicine
DX: R07.9 Chest pain, unspecified (principal); M05.79 Rheumatoid arthritis with rheumatoid factor of multiple sites without organ or systems involvement

== ENCOUNTER → 2020-08-25 | Outpatient (CLI) | payer BC ==
[~2020-08-25] MED LIST changes: +ISOVUE-370 76% 100ML VIAL As Ordered ONE
--- NOTE | 2020-08-25 11:23 | REP ---
INDICATION: ELEVATED D - DIMER CHEST PAIN ? PE COMPARISON: None. TECHNIQUE: Axial contrast enhanced images from the thoracic inlet to the upper abdomen using pulmonary embolus technique with multiplanar re-formations. 75 ml Isovue 370 intravenous contrast material administered without complication. This CT examination was performed using the following dose reduction techniques: Automated exposure control, adjustment of mA and/or kv according to the patient's size, and use of iterative reconstruction technique. FINDINGS: Satisfactory enhancement of the pulmonary vasculature is achieved and no filling defects are identified to suggest pulmonary embolus. Further evaluation of the mediastinum demonstrates normal thoracic aorta, heart and pericardium. The bilateral lung keith are well aerated and clear without consolidation pleural effusion or pneumothorax. Tracheobronchial tree is patent. No nodule or mass lesion is identified. No adenopathy noted. Surrounding musculoskeletal structures intact IMPRESSION: No evidence for pulmonary embolus. No acute mediastinal or pleural parenchymal process. <Electronically signed by Aldair Mccain > 08/25/20 [id number]
== END ==
LOC: M RAD 10:07
PROVIDERS: ATTEND Family Medicine
DX: R07.9 Chest pain, unspecified (principal)
CPT/HCPCS: 71275; Q9967

== ENCOUNTER → 2020-09-05 | Outpatient (CLI) | payer BC ==
[~2020-09-05] MED LIST changes: -ISOVUE-370 76% 100ML VIAL As Ordered ONE
--- NOTE | 2020-09-05 16:33 | REP ---
INDICATION: RHEU ARTHRITIS W RHEU FACTOR MULT SITE W/O ORG/SYS INVOLV COMPARISON: None. TECHNIQUE: AP, lateral, and swimmers views. FINDINGS: Alignment and kyphosis is maintained. Vertebral bodies intact. No acute fracture / compression injury or subluxation. Mild age-related degenerative changes include very subtle endplate sclerosis and mild early osteophytic changes. Paravertebral soft tissues are normal. IMPRESSION: Mild age-related degenerative changes. <Electronically signed by Aldair Mccain > 09/05/20 [id number]
== END ==
LOC: M RAD 16:14
PROVIDERS: ATTEND Family Medicine
DX: M51.34 Other intervertebral disc degeneration, thoracic region (principal); M05.79 Rheumatoid arthritis with rheumatoid factor of multiple sites without organ or systems involvement

== ENCOUNTER → 2021-01-18 | Outpatient (CLI) | payer BC ==
[~2021-01-18] MED LIST changes: +COLC0.6T47; +KETO10TAB; +PRED20TA; +PRED20TA PO
[2021-01-18 17:02] LABS: BASO # 0.1 10^3/uL (0.0-0.2); EOS # 0.3 10^3/uL (0.0-0.5); EOS % 5.5 % (0.0-3.0); HEMATOCRIT 41.3 % (42.0-52.0); HEMOGLOBIN 13.9 g/dl (13.5-17.5); LYMPH # 1.3 10^3/uL (1.5-5.0); LYMPH % 22.2 % (24.0-44.0); MEAN CORPUSCULAR HEMOGLOBIN 32.9 pg (27.0-33.0); MEAN CORPUSCULAR HGB CONC 33.7 g/dl (32.0-36.5); MEAN CORPUSCULAR VOLUME 97.6 fl (80.0-96.0); MONO # 0.4 10^3/uL (0.0-0.8); MONO % 7.3 % (2.0-8.0); NEUTROPHILS # 3.8 10^3/uL (1.5-8.5); NEUTROPHILS % 63.7 % (36.0-66.0); PLATELET COUNT, AUTOMATED 226 10^3/uL (150-450); RED BLOOD COUNT 4.23 10^6/uL (4.30-6.10)
[2021-01-18 17:29] LABS: ALBUMIN 3.2 GM/DL (3.2-5.2); ALT/SGPT 37 U/L (12-78); BILIRUBIN,TOTAL 0.4 MG/DL (0.2-1.0); BLOOD UREA NITROGEN 11 MG/DL (7-18); C REACTIVE PROTEIN QUANTITATIV 0.59 MG/DL (0.00-0.30); CALCIUM LEVEL 8.7 MG/DL (8.5-10.1); CARBON DIOXIDE LEVEL 29 MEQ/L (21-32); CHLORIDE LEVEL 110 MEQ/L (98-107); CREATININE FOR GFR 1.02 MG/DL (0.70-1.30); GLOMERULAR FILTRATION RATE > 60.0 (>56); GLUCOSE, FASTING 78 MG/DL (70-100); POTASSIUM SERUM 4.4 MEQ/L (3.5-5.1); SODIUM LEVEL 141 MEQ/L (136-145); TOTAL PROTEIN 6.3 GM/DL (6.4-8.2); URIC ACID 4.9 MG/DL (3.5-7.2)
[2021-01-18 18:47] LABS: HEPATITIS B SURFACE ANTIGEN NEGATIVE (NEGATIVE)
[2021-01-22 11:07] LABS: ANA (HEP2) Negative (.); CYCLIC CITRULLINATED PEPTIDE > 250 units (0-19)
== END ==
LOC: M WUC 12:11
PROVIDERS: ATTEND Internal Medicine Rheumatology
DX: M05.79 Rheumatoid arthritis with rheumatoid factor of multiple sites without organ or systems involvement (principal); M79.675 Pain in left toe(s); Z79.899 Other long term (current) drug therapy

== ENCOUNTER → 2021-01-25 | Outpatient (CLI) | payer BC ==
[~2021-01-25] MED LIST changes: -COLC0.6T47; -KETO10TAB; -PRED20TA; -PRED20TA PO
== END ==
LOC: M WUC 08:55
PROVIDERS: ATTEND Internal Medicine Rheumatology
DX: M05.79 Rheumatoid arthritis with rheumatoid factor of multiple sites without organ or systems involvement (principal)

== ENCOUNTER → 2021-01-25 | Outpatient (CLI) | payer BC ==
--- NOTE | 2021-01-25 11:37 | REP ---
INDICATION: RHEU ARTHRITIS W RHEU FACTOR MULT SITE W/O ORG/SYS INVOLV. COMPARISON: None. TECHNIQUE: Eight views, bilateral hand series. FINDINGS: Four views of each hand demonstrate normal overall mineralization. Joint spaces are preserved. No erosive arthropathy is appreciated. There is minimal spurring at the D IP joint of the index finger on the left. There is moderate spurring and some of old posttraumatic deformity at the D IP joint of the index finger on the right. Periarticular soft tissues are unremarkable. IMPRESSION: D IP joint spurring at the index fingers bilaterally as above. <Electronically signed by David Horton > 01/25/21 [id number]
--- NOTE | 2021-01-25 11:38 | REP ---
INDICATION: RHEU ARTHRITIS W RHEU FACTOR MULT SITE W/O ORG/SYS INVOLV. COMPARISON: None. TECHNIQUE: Eight views, bilateral foot series. FINDINGS: Four views of each foot demonstrate normal overall mineralization. Joint spaces are preserved. Periarticular soft tissues are unremarkable. No erosive changes are seen. Mild Achilles calcaneal spurring on the right. IMPRESSION: Mild heel spurring on the right, otherwise negative bilateral foot radiographs. <Electronically signed by David Horton > 01/25/21 [id number]
== END ==
LOC: M RAD 09:45
PROVIDERS: ATTEND Internal Medicine Rheumatology
DX: M05.79 Rheumatoid arthritis with rheumatoid factor of multiple sites without organ or systems involvement (principal)

== ENCOUNTER 2021-02-17 20:02 | Emergency (ER) | payer BC ==
[~2021-02-17] VITALS: Ht 177.8 cm; Wt 89.2 kg
[2021-02-17] MEDS ORDERED: COLC0.6T47 (20:23)
[2021-02-17] MEDS ORDERED: KETO10TAB (20:23)
[2021-02-17] MEDS ORDERED: PRED20TA (20:23)
--- NOTE | 2021-02-17 22:42 | REPVR ---
PROCEDURE INFORMATION: Exam: XR Left Hand Exam date and time: 02/17/2021 10:03 PM Age: 60 years old Clinical indication: Other: Pain TECHNIQUE: Imaging protocol: XR Left hand. Views: 3 or more views. COMPARISON: CR Hand, complete 01/25/2021 10:00 AM FINDINGS: Bones/joints: Normal. Soft tissues: Normal. IMPRESSION: No acute findings. Electronically signed by: Dedrick Mcdaniel On 02/17/2021 22:41:59 PM
[2021-02-17] MEDS ORDERED: PRED20TA PO (23:32)
[2021-02-18 00:12] VITALS: BP 174/84
== END 2021-02-18 00:15 | disposition home or self-care (01) ==
LOC: M ED 20:02
DX: M06.9 Rheumatoid arthritis, unspecified (principal); F33.9 Major depressive disorder, recurrent, unspecified; F41.9 Anxiety disorder, unspecified; Z79.899 Other long term (current) drug therapy

== ENCOUNTER → 2021-03-27 | Outpatient (REF) | payer BC ==
[~2021-03-27] MED LIST changes: +COLC0.6T47; +KETO10TAB; +PRED20TA; +PRED20TA PO
== END ==
LOC: M LAB REF 16:56
PROVIDERS: ATTEND Physician Assistant
DX: J06.9 Acute upper respiratory infection, unspecified (principal)

== ENCOUNTER → 2021-04-12 | Outpatient (REF) | payer BC ==
[2021-04-12 16:19] LABS: BASO # 0.1 10^3/uL (0.0-0.2); EOS # 0.4 10^3/uL (0.0-0.5); EOS % 6.6 % (0.0-3.0); HEMATOCRIT 39.8 % (42.0-52.0); HEMOGLOBIN 13.5 g/dl (13.5-17.5); LYMPH # 1.3 10^3/uL (1.5-5.0); LYMPH % 21.5 % (24.0-44.0); MEAN CORPUSCULAR HEMOGLOBIN 32.1 pg (27.0-33.0); MEAN CORPUSCULAR HGB CONC 33.9 g/dl (32.0-36.5); MEAN CORPUSCULAR VOLUME 94.8 fl (80.0-96.0); MONO # 0.6 10^3/uL (0.0-0.8); MONO % 9.9 % (2.0-8.0); NEUTROPHILS # 3.7 10^3/uL (1.5-8.5); NEUTROPHILS % 60.3 % (36.0-66.0); PLATELET COUNT, AUTOMATED 196 10^3/uL (150-450); WHITE BLOOD COUNT 6.1 10^3/uL (4.0-10.0)
[2021-04-12 16:51] LABS: ALBUMIN 3.3 GM/DL (3.2-5.2); ALT/SGPT 34 U/L (12-78); BILIRUBIN,TOTAL 0.3 MG/DL (0.2-1.0); BLOOD UREA NITROGEN 12 MG/DL (7-18); CALCIUM LEVEL 8.7 MG/DL (8.5-10.1); CARBON DIOXIDE LEVEL 29 MEQ/L (21-32); CHLORIDE LEVEL 109 MEQ/L (98-107); CREATININE FOR GFR 0.92 MG/DL (0.70-1.30); GLOMERULAR FILTRATION RATE > 60.0 (>56); GLUCOSE, FASTING 84 MG/DL (70-100); SODIUM LEVEL 142 MEQ/L (136-145); TOTAL PROTEIN 6.3 GM/DL (6.4-8.2); URIC ACID 4.3 MG/DL (3.5-7.2)
[2021-04-12 18:06] LABS: ERYTHROCYTE SEDIMENTATION RATE 7 mm/hr (0-20)
== END ==
LOC: M WUC 15:39
PROVIDERS: ATTEND Internal Medicine Rheumatology
DX: M05.79 Rheumatoid arthritis with rheumatoid factor of multiple sites without organ or systems involvement (principal); R76.8 Other specified abnormal immunological findings in serum; Z79.899 Other long term (current) drug therapy; M79.675 Pain in left toe(s)

== ENCOUNTER 2021-07-08 07:48 | Emergency (ER) | payer OTHER, BC ==
[~2021-07-08] VITALS: Ht 172.7 cm; Wt 88.6 kg
[2021-07-08] MEDS ORDERED: ONDANSETRON 4MG/2ML VIAL IV ONE (08:00)
[2021-07-08] MEDS ORDERED: NS 1,000 ML IV ONE (08:00)
[2021-07-08] MEDS ORDERED: BOOSTRIX/ADACEL VACCINE (DIPHTH/PERTUSS/ACELL/TETANUS) 0.5ML SYR IM ONE (08:00)
[2021-07-08] MEDS ORDERED: ceFAZolin SOD 1 GM in D5W MINI-BAG PLUS 50 ML IV ONE (08:00)
[2021-07-08] MEDS ORDERED: MORPHINE 4 MG/ML 1ML VIAL/SYRINGE (J2270) IV PRN (08:05)
[2021-07-08] MEDS ORDERED: LIDOCAINE 1% MDV 20ML VIAL SC ONE (09:05)
[2021-07-08] MEDS ORDERED: CEPH500C PO (09:53)
[2021-07-08] MEDS ORDERED: PERC5TAB12 PO (09:53)
[2021-07-08] MEDS ORDERED: ONDA4TAB6 PO (09:54)
[2021-07-08 10:16] VITALS: BP 142/67
[2021-07-11] MEDS ORDERED: HYDR-3363 PO (14:19)
[2021-07-11] MEDS ORDERED: OXYC1TAB23 PO (18:16)
== END 2021-07-08 10:47 | disposition home or self-care (01) ==
LOC: EDBD 07:48 → M ED 07:48
DX: S68.120A Partial traumatic metacarpophalangeal amputation of right index finger, initial encounter (principal); W23.0XXA Caught, crushed, jammed, or pinched between moving objects, initial encounter; Y92.89 Other specified places as the place of occurrence of the external cause; Y99.0 Civilian activity done for income or pay
CPT/HCPCS: 12002; 73130; 90471; 90715; 96365; 96375; 99284; J0690; J2405

== ENCOUNTER → 2021-07-26 | Outpatient (CLI) | payer BC ==
[~2021-07-26] MED LIST changes: +CEPH500C PO; +HYDR-3363 PO; +ONDA4TAB6 PO; +OXYC1TAB23 PO; +PERC5TAB12 PO
[2021-07-26 16:15] LABS: BASO # 0.1 10^3/uL (0.0-0.2); EOS # 0.5 10^3/uL (0.0-0.5); EOS % 7.3 % (0.0-3.0); HEMATOCRIT 42.2 % (42.0-52.0); HEMOGLOBIN 13.9 g/dl (13.5-17.5); LYMPH # 1.5 10^3/uL (1.5-5.0); LYMPH % 21.6 % (24.0-44.0); MEAN CORPUSCULAR HEMOGLOBIN 31.9 pg (27.0-33.0); MEAN CORPUSCULAR HGB CONC 32.9 g/dl (32.0-36.5); MEAN CORPUSCULAR VOLUME 96.8 fl (80.0-96.0); MONO # 0.4 10^3/uL (0.0-0.8); MONO % 5.2 % (2.0-8.0); NEUTROPHILS # 4.3 10^3/uL (1.5-8.5); NEUTROPHILS % 64.6 % (36.0-66.0); PLATELET COUNT, AUTOMATED 255 10^3/uL (150-450); RED BLOOD COUNT 4.36 10^6/uL (4.30-6.10); WHITE BLOOD COUNT 6.7 10^3/uL (4.0-10.0)
[2021-07-26 16:49] LABS: ERYTHROCYTE SEDIMENTATION RATE 19 mm/hr (0-20)
[2021-07-26 17:27] LABS: ALBUMIN 3.2 GM/DL (3.2-5.2); ALT/SGPT 38 U/L (12-78); BILIRUBIN,TOTAL 0.4 MG/DL (0.2-1.0); BLOOD UREA NITROGEN 11 MG/DL (7-18); C REACTIVE PROTEIN QUANTITATIV 0.52 MG/DL (0.00-0.30); CALCIUM LEVEL 9.1 MG/DL (8.5-10.1); CARBON DIOXIDE LEVEL 31 MEQ/L (21-32); CHLORIDE LEVEL 109 MEQ/L (98-107); CREATININE FOR GFR 1.12 MG/DL (0.70-1.30); GLOMERULAR FILTRATION RATE > 60.0 (>56); GLUCOSE, FASTING 133 MG/DL (70-100); POTASSIUM SERUM 4.4 MEQ/L (3.5-5.1); SODIUM LEVEL 143 MEQ/L (136-145); TOTAL PROTEIN 6.3 GM/DL (6.4-8.2); URIC ACID 3.9 MG/DL (3.5-7.2)
== END ==
LOC: M WUC 11:14
PROVIDERS: ATTEND Internal Medicine Rheumatology
DX: M05.79 Rheumatoid arthritis with rheumatoid factor of multiple sites without organ or systems involvement (principal); Z79.899 Other long term (current) drug therapy; M79.675 Pain in left toe(s)

== ENCOUNTER 2021-07-31 02:38 | Emergency (ER) | payer BC ==
[~2021-07-31] VITALS: Ht 180.3 cm; Wt 90.2 kg
[2021-07-31] MEDS ORDERED: PRED20TA PO (06:09)
[2021-07-31 06:44] VITALS: BP 168/82
[2021-07-31] MEDS ORDERED: KETOROLAC 30 MG/ML 1ML VIAL IM ONE (07:00)
== END 2021-07-31 06:43 | disposition home or self-care (01) ==
LOC: M ED 02:38
DX: M06.9 Rheumatoid arthritis, unspecified (principal); R03.0 Elevated blood-pressure reading, without diagnosis of hypertension; Z79.899 Other long term (current) drug therapy
CPT/HCPCS: 99283; J1885

== ENCOUNTER → 2021-10-26 | Outpatient (CLI) | payer BC ==
[2021-10-26 11:16] LABS: BASO # 0.1 10^3/uL (0.0-0.2); EOS # 0.5 10^3/uL (0.0-0.5); EOS % 8.7 % (0.0-3.0); HEMATOCRIT 40.8 % (42.0-52.0); HEMOGLOBIN 13.5 g/dl (13.5-17.5); LYMPH # 1.5 10^3/uL (1.5-5.0); LYMPH % 28.6 % (24.0-44.0); MEAN CORPUSCULAR HEMOGLOBIN 31.3 pg (27.0-33.0); MEAN CORPUSCULAR HGB CONC 33.1 g/dl (32.0-36.5); MEAN CORPUSCULAR VOLUME 94.7 fl (80.0-96.0); MONO # 0.4 10^3/uL (0.0-0.8); MONO % 8.5 % (2.0-8.0); NEUTROPHILS # 2.7 10^3/uL (1.5-8.5); PLATELET COUNT, AUTOMATED 219 10^3/uL (150-450); RED BLOOD COUNT 4.31 10^6/uL (4.30-6.10); WHITE BLOOD COUNT 5.2 10^3/uL (4.0-10.0)
[2021-10-26 11:36] LABS: ALBUMIN 3.1 GM/DL (3.2-5.2); ALT/SGPT 28 U/L (12-78); BILIRUBIN,TOTAL 0.4 MG/DL (0.2-1.0); BLOOD UREA NITROGEN 14 MG/DL (7-18); C REACTIVE PROTEIN QUANTITATIV 1.59 MG/DL (0.00-0.30); CARBON DIOXIDE LEVEL 29 MEQ/L (21-32); CHLORIDE LEVEL 111 MEQ/L (98-107); CREATININE FOR GFR 1.08 MG/DL (0.70-1.30); GLOMERULAR FILTRATION RATE > 60.0 (>56); GLUCOSE, FASTING 75 MG/DL (70-100); SODIUM LEVEL 145 MEQ/L (136-145); TOTAL PROTEIN 6.3 GM/DL (6.4-8.2)
[2021-10-26 12:07] LABS: ERYTHROCYTE SEDIMENTATION RATE 20 mm/hr (0-20)
== END ==
LOC: M WUC 10:12
PROVIDERS: ATTEND Internal Medicine Rheumatology
DX: M05.79 Rheumatoid arthritis with rheumatoid factor of multiple sites without organ or systems involvement (principal); R76.8 Other specified abnormal immunological findings in serum; M79.675 Pain in left toe(s); Z79.899 Other long term (current) drug therapy

== ENCOUNTER 2021-11-19 10:11 | Emergency (ER) | payer BC ==
[~2021-11-19] VITALS: Ht 177.8 cm; Wt 87.6 kg
[2021-11-19] MEDS ORDERED: HUMI40IN2 SQ (10:20)
[2021-11-19] MEDS ORDERED: KETOROLAC 30 MG/ML 1ML VIAL IM ONE (12:20)
[2021-11-19] MEDS ORDERED: [UNRECOGNIZED DRUG - CODE] PO (12:23)
[2021-11-19] MEDS ORDERED: LIDO5DIS41 TD (12:23)
[2021-11-19 14:11] VITALS: BP 160/78
== END 2021-11-19 14:45 | disposition home or self-care (01) ==
LOC: M ED 10:11
DX: M54.50 Low back pain, unspecified (principal); M06.9 Rheumatoid arthritis, unspecified; Z87.19 Personal history of other diseases of the digestive system; Z79.899 Other long term (current) drug therapy
CPT/HCPCS: 96372; 99283; J1885

== ENCOUNTER 2021-11-23 18:09 | Emergency (ER) | payer BC ==
[~2021-11-23] VITALS: Ht 177.8 cm; Wt 87.6 kg
[~2021-11-23 18:09] MED LIST changes: +HUMI40IN2 SQ; +LIDO5DIS41 TD; +[UNRECOGNIZED DRUG - CODE] PO
[2021-11-23] MEDS ORDERED: BACL10TA2 (18:33)
[2021-11-23] MEDS ORDERED: IBUP-1022 PO (18:33)
[2021-11-23] MEDS ORDERED: ALPRAZolam 0.5 MG TAB PO ONE (20:05)
[2021-11-23 20:52] LABS: BASO # 0.1 10^3/uL (0.0-0.2); BASO % 0.6 % (0.0-1.0); EOS # 0.3 10^3/uL (0.0-0.5); EOS % 2.6 % (0.0-3.0); HEMATOCRIT 44.1 % (42.0-52.0); HEMOGLOBIN 15.5 g/dl (13.5-17.5); LYMPH % 19.5 % (24.0-44.0); MEAN CORPUSCULAR HEMOGLOBIN 32.5 pg (27.0-33.0); MEAN CORPUSCULAR HGB CONC 35.1 g/dl (32.0-36.5); MEAN CORPUSCULAR VOLUME 92.5 fl (80.0-96.0); MONO # 0.6 10^3/uL (0.0-0.8); MONO % 6.1 % (2.0-8.0); NEUTROPHILS # 7.2 10^3/uL (1.5-8.5); NEUTROPHILS % 70.8 % (36.0-66.0); PLATELET COUNT, AUTOMATED 206 10^3/uL (150-450); RED BLOOD COUNT 4.77 10^6/uL (4.30-6.10); WHITE BLOOD COUNT 10.2 10^3/uL (4.0-10.0)
[2021-11-23 21:32] LABS: ALBUMIN 3.5 GM/DL (3.2-5.2); ALT/SGPT 71 U/L (12-78); BILIRUBIN,TOTAL 0.7 MG/DL (0.2-1.0); BLOOD UREA NITROGEN 13 MG/DL (7-18); CARBON DIOXIDE LEVEL 30 MEQ/L (21-32); CHLORIDE LEVEL 107 MEQ/L (98-107); CREATININE FOR GFR 1.16 MG/DL (0.70-1.30); GLOMERULAR FILTRATION RATE > 60.0 (>56); GLUCOSE, FASTING 92 MG/DL (70-100); POTASSIUM SERUM 4.7 MEQ/L (3.5-5.1); SODIUM LEVEL 139 MEQ/L (136-145); TOTAL PROTEIN 6.5 GM/DL (6.4-8.2)
[2021-11-23 22:14] VITALS: BP 158/84
== END 2021-11-23 22:16 | disposition home or self-care (01) ==
LOC: M ED 18:09
DX: F41.9 Anxiety disorder, unspecified (principal); R03.0 Elevated blood-pressure reading, without diagnosis of hypertension; M06.9 Rheumatoid arthritis, unspecified; Z79.899 Other long term (current) drug therapy

== ENCOUNTER → 2022-01-31 | Outpatient (CLI) | payer BC ==
[~2022-01-31] MED LIST changes: +BACL10TA2; +IBUP-1022 PO
[2022-01-31 12:35] LABS: BASO # 0.1 10^3/uL (0.0-0.2); BASO % 1.9 % (0.0-1.0); EOS # 0.6 10^3/uL (0.0-0.5); EOS % 11.8 % (0.0-3.0); HEMATOCRIT 42.8 % (42.0-52.0); LYMPH # 1.3 10^3/uL (1.5-5.0); LYMPH % 27.1 % (24.0-44.0); MEAN CORPUSCULAR HEMOGLOBIN 31.2 pg (27.0-33.0); MEAN CORPUSCULAR HGB CONC 32.7 g/dl (32.0-36.5); MEAN CORPUSCULAR VOLUME 95.3 fl (80.0-96.0); MONO # 0.4 10^3/uL (0.0-0.8); MONO % 9.1 % (2.0-8.0); NEUTROPHILS # 2.4 10^3/uL (1.5-8.5); NEUTROPHILS % 49.7 % (36.0-66.0); PLATELET COUNT, AUTOMATED 227 10^3/uL (150-450); RED BLOOD COUNT 4.49 10^6/uL (4.30-6.10); WHITE BLOOD COUNT 4.8 10^3/uL (4.0-10.0)
[2022-01-31 13:02] LABS: ERYTHROCYTE SEDIMENTATION RATE 8 mm/hr (0-20)
[2022-01-31 13:07] LABS: ALBUMIN 3.5 GM/DL (3.2-5.2); ALT/SGPT 60 U/L (12-78); BILIRUBIN,TOTAL 0.7 MG/DL (0.2-1.0); BLOOD UREA NITROGEN 14 MG/DL (7-18); C REACTIVE PROTEIN QUANTITATIV 0.98 MG/DL (0.00-0.30); CALCIUM LEVEL 8.6 MG/DL (8.5-10.1); CARBON DIOXIDE LEVEL 28 MEQ/L (21-32); CHLORIDE LEVEL 108 MEQ/L (98-107); CREATININE FOR GFR 1.24 MG/DL (0.70-1.30); GLOMERULAR FILTRATION RATE > 60.0 (>56); GLUCOSE, FASTING 102 MG/DL (70-100); POTASSIUM SERUM 3.9 MEQ/L (3.5-5.1); SODIUM LEVEL 139 MEQ/L (136-145); TOTAL PROTEIN 6.3 GM/DL (6.4-8.2)
== END ==
LOC: M WUC 10:05
PROVIDERS: ATTEND Internal Medicine Rheumatology
DX: M05.79 Rheumatoid arthritis with rheumatoid factor of multiple sites without organ or systems involvement (principal); R76.8 Other specified abnormal immunological findings in serum; Z79.899 Other long term (current) drug therapy; M79.675 Pain in left toe(s)

== ENCOUNTER → 2022-03-09 | Outpatient (CLI) | payer BC ==
[2022-03-09 17:26] LABS: BASO # 0.1 10^3/uL (0.0-0.2); BASO % 1.3 % (0.0-1.0); EOS # 0.5 10^3/uL (0.0-0.5); EOS % 6.7 % (0.0-3.0); HEMATOCRIT 40.6 % (42.0-52.0); HEMOGLOBIN 13.3 g/dl (13.5-17.5); LYMPH # 2.8 10^3/uL (1.5-5.0); LYMPH % 40.3 % (24.0-44.0); MEAN CORPUSCULAR HEMOGLOBIN 31.5 pg (27.0-33.0); MEAN CORPUSCULAR HGB CONC 32.8 g/dl (32.0-36.5); MEAN CORPUSCULAR VOLUME 96.2 fl (80.0-96.0); MONO # 0.5 10^3/uL (0.0-0.8); MONO % 7.3 % (2.0-8.0); NEUTROPHILS # 3.1 10^3/uL (1.5-8.5); NEUTROPHILS % 44.1 % (36.0-66.0); PLATELET COUNT, AUTOMATED 233 10^3/uL (150-450); RED BLOOD COUNT 4.22 10^6/uL (4.30-6.10)
[2022-03-09 17:58] LABS: ERYTHROCYTE SEDIMENTATION RATE 11 mm/hr (0-20)
[2022-03-09 18:20] LABS: ALBUMIN 3.4 GM/DL (3.2-5.2); ALT/SGPT 64 U/L (12-78); BILIRUBIN,TOTAL 0.5 MG/DL (0.2-1.0); BLOOD UREA NITROGEN 11 MG/DL (7-18); CALCIUM LEVEL 8.5 MG/DL (8.5-10.1); CARBON DIOXIDE LEVEL 30 MEQ/L (21-32); CHLORIDE LEVEL 105 MEQ/L (98-107); CREATININE FOR GFR 1.11 MG/DL (0.70-1.30); GLOMERULAR FILTRATION RATE > 60.0 (>56); GLUCOSE, FASTING 85 MG/DL (70-100); POTASSIUM SERUM 4.2 MEQ/L (3.5-5.1); SODIUM LEVEL 139 MEQ/L (136-145); TOTAL PROTEIN 6.7 GM/DL (6.4-8.2)
== END ==
LOC: M WUC 14:08
PROVIDERS: ATTEND Internal Medicine Rheumatology
DX: M05.79 Rheumatoid arthritis with rheumatoid factor of multiple sites without organ or systems involvement (principal); R76.8 Other specified abnormal immunological findings in serum; M79.675 Pain in left toe(s); Z79.899 Other long term (current) drug therapy

== ENCOUNTER → 2022-04-17 | Outpatient (CLI) | payer BC ==
[2022-04-17 17:48] LABS: BASO # 0.1 10^3/uL (0.0-0.2); EOS # 0.2 10^3/uL (0.0-0.5); HEMATOCRIT 41.4 % (42.0-52.0); HEMOGLOBIN 13.7 g/dl (13.5-17.5); LYMPH % 27.3 % (24.0-44.0); MEAN CORPUSCULAR HEMOGLOBIN 31.8 pg (27.0-33.0); MEAN CORPUSCULAR HGB CONC 33.1 g/dl (32.0-36.5); MEAN CORPUSCULAR VOLUME 96.1 fl (80.0-96.0); MONO # 0.7 10^3/uL (0.0-0.8); MONO % 9.1 % (2.0-8.0); NEUTROPHILS # 4.3 10^3/uL (1.5-8.5); NEUTROPHILS % 59.2 % (36.0-66.0); PLATELET COUNT, AUTOMATED 194 10^3/uL (150-450); RED BLOOD COUNT 4.31 10^6/uL (4.30-6.10); WHITE BLOOD COUNT 7.2 10^3/uL (4.0-10.0)
[2022-04-17 18:02] LABS: CHLORIDE LEVEL 104 MMOL/L (98-107); POTASSIUM SERUM 4.4 MMOL/L (3.5-5.1); SODIUM LEVEL 140 MMOL/L (136-145)
[2022-04-17 18:03] LABS: ALBUMIN 3.6 G/DL (3.2-5.2); CARBON DIOXIDE LEVEL 29 MMOL/L (20-31)
[2022-04-17 18:07] LABS: BLOOD UREA NITROGEN 15 MG/DL (9-23)
[2022-04-17 18:08] LABS: ALKALINE PHOSPHATASE 83 U/L (46-116); CALCIUM LEVEL 8.7 MG/DL (8.5-10.1); GLUCOSE, FASTING 100 MG/DL (60-100)
[2022-04-17 18:09] LABS: TOTAL 25(OH) VITAMIN D 28.2 NG/ML (20.0-100.0)
[2022-04-17 18:10] LABS: ALT/SGPT 69 U/L (7.0-40); AST/SGOT 43 U/L (<34); BILIRUBIN,DIRECT 0.1 MG/DL (<0.4); BILIRUBIN,TOTAL 0.4 MG/DL (0.3-1.2); CREATININE FOR GFR 1.01 MG/DL (0.70-1.30); GLOMERULAR FILTRATION RATE > 60.0 (>56); IRON (FE) 93 UG/DL (65-175); PERCENT SATURATION 29.6 % (19.7-50.0); THYROID STIMULATING HORMONE 1.908 uIU/ML (0.55-4.78); TOTAL IRON BINDING CAPACITY 314 UG/DL (250-425); TOTAL PROTEIN 6.5 G/DL (5.7-8.2)
[2022-04-17 18:11] LABS: FERRITIN 44.1 NG/ML (10.5-307.3)
[2022-04-17 18:12] LABS: VITAMIN B12 LEVEL 396 PG/ML (211-911)
[2022-04-17 18:17] LABS: ERYTHROCYTE SEDIMENTATION RATE 5 mm/hr (0-20)
[2022-04-18 17:14] LABS: FOLATE > 24.00 NG/ML (>5.4)
== END ==
LOC: M WUC 14:13
PROVIDERS: ATTEND Physician Assistant
DX: R53.83 Other fatigue (principal)

== ENCOUNTER → 2022-05-16 | Outpatient (CLI) | payer BC | LOC: M PLAIMG 14:16 | PROVIDERS: ATTEND Physician Assistant | DX: M50.022 Cervical disc disorder at C5-C6 level with myelopathy (principal); M50.023 Cervical disc disorder at C6-C7 level with myelopathy ==

== ENCOUNTER → 2022-08-02 | Outpatient (CLI) | payer BC ==
[2022-08-02 12:12] LABS: BASO # 0.1 10^3/uL (0.0-0.2); BASO % 0.9 % (0.0-1.0); EOS # 0.4 10^3/uL (0.0-0.5); HEMATOCRIT 44.4 % (42.0-52.0); HEMOGLOBIN 14.9 g/dl (13.5-17.5); LYMPH % 34.8 % (24.0-44.0); MEAN CORPUSCULAR HEMOGLOBIN 31.8 pg (27.0-33.0); MEAN CORPUSCULAR HGB CONC 33.6 g/dl (32.0-36.5); MEAN CORPUSCULAR VOLUME 94.9 fl (80.0-96.0); MONO # 0.4 10^3/uL (0.0-0.8); MONO % 6.6 % (2.0-8.0); NEUTROPHILS % 51.4 % (36.0-66.0); PLATELET COUNT, AUTOMATED 190 10^3/uL (150-450); RED BLOOD COUNT 4.68 10^6/uL (4.30-6.10); WHITE BLOOD COUNT 5.8 10^3/uL (4.0-10.0)
[2022-08-02 12:16] LABS: C REACTIVE PROTEIN QUANTITATIV < 0.40 MG/DL (<1.0)
[2022-08-02 12:20] LABS: ALBUMIN 3.5 G/DL (3.2-5.2); ALKALINE PHOSPHATASE 83 U/L (46-116); ALT/SGPT 56 U/L (7.0-40); AST/SGOT 37 U/L (<34); BILIRUBIN,TOTAL 1.1 MG/DL (0.3-1.2); BLOOD UREA NITROGEN 10 MG/DL (9-23); CALCIUM LEVEL 8.5 MG/DL (8.5-10.1); CARBON DIOXIDE LEVEL 32 MMOL/L (20-31); CHLORIDE LEVEL 104 MMOL/L (98-107); CREATININE FOR GFR 1.02 MG/DL (0.70-1.30); GLOMERULAR FILTRATION RATE > 60.0 (>56); GLUCOSE, FASTING 157 MG/DL (60-100); POTASSIUM SERUM 4.1 MMOL/L (3.5-5.1); SODIUM LEVEL 139 MMOL/L (136-145); TOTAL PROTEIN 6.2 G/DL (5.7-8.2)
[2022-08-02 12:33] LABS: ERYTHROCYTE SEDIMENTATION RATE 7 mm/hr (0-20)
== END ==
LOC: M WUC 10:13
PROVIDERS: ATTEND Internal Medicine Rheumatology
DX: M05.79 Rheumatoid arthritis with rheumatoid factor of multiple sites without organ or systems involvement (principal); R76.8 Other specified abnormal immunological findings in serum; Z79.899 Other long term (current) drug therapy; M79.675 Pain in left toe(s)

== ENCOUNTER → 2022-09-07 | Outpatient (CLI) | payer OTHER | LOC: M PAIN 13:00 | PROVIDERS: ATTEND Nurse Practitioner Family | DX: M79.12 Myalgia of auxiliary muscles, head and neck (principal); M06.9 Rheumatoid arthritis, unspecified; F32.A Depression, unspecified; M54.2 Cervicalgia; G43.909 Migraine, unspecified, not intractable, without status migrainosus; F41.9 Anxiety disorder, unspecified; E55.9 Vitamin D deficiency, unspecified; Z86.16 Personal history of COVID-19; Z79.899 Other long term (current) drug therapy ==

== ENCOUNTER → 2022-10-09 | Outpatient (CLI) | payer OTHER ==
[2022-10-09 17:50] LABS: ALBUMIN 3.5 G/DL (3.2-5.2); BILIRUBIN,DIRECT 0.1 MG/DL (<0.4); BILIRUBIN,TOTAL 0.4 MG/DL (0.3-1.2); TOTAL PROTEIN 6.1 G/DL (5.7-8.2)
== END ==
LOC: M WUC 14:25
PROVIDERS: ATTEND Internal Medicine Rheumatology
DX: M05.79 Rheumatoid arthritis with rheumatoid factor of multiple sites without organ or systems involvement (principal)

== ENCOUNTER → 2022-11-12 | Outpatient (CLI) | payer OTHER ==
[2022-11-12 13:44] LABS: BASO # 0.1 10^3/uL (0.0-0.2); BASO % 1.4 % (0.0-1.0); EOS # 0.5 10^3/uL (0.0-0.5); HEMATOCRIT 44.3 % (42.0-52.0); LYMPH # 1.9 10^3/uL (1.5-5.0); LYMPH % 32.8 % (24.0-44.0); MEAN CORPUSCULAR HEMOGLOBIN 32.5 pg (27.0-33.0); MEAN CORPUSCULAR HGB CONC 33.9 g/dl (32.0-36.5); MEAN CORPUSCULAR VOLUME 96.1 fl (80.0-96.0); MONO # 0.6 10^3/uL (0.0-0.8); MONO % 10.4 % (2.0-8.0); NEUTROPHILS # 2.6 10^3/uL (1.5-8.5); NEUTROPHILS % 44.9 % (36.0-66.0); PLATELET COUNT, AUTOMATED 209 10^3/uL (150-450); RED BLOOD COUNT 4.61 10^6/uL (4.30-6.10); WHITE BLOOD COUNT 5.9 10^3/uL (4.0-10.0)
[2022-11-12 13:55] LABS: C REACTIVE PROTEIN QUANTITATIV < 0.40 MG/DL (<1.0); ERYTHROCYTE SEDIMENTATION RATE 4 mm/hr (0-20)
[2022-11-12 13:57] LABS: ALBUMIN 3.4 G/DL (3.2-5.2); ALKALINE PHOSPHATASE 86 U/L (46-116); ALT/SGPT 34 U/L (7.0-40); AST/SGOT 21 U/L (<34); BILIRUBIN,TOTAL 0.5 MG/DL (0.3-1.2); BLOOD UREA NITROGEN 15 MG/DL (9-23); CALCIUM LEVEL 8.6 MG/DL (8.5-10.1); CARBON DIOXIDE LEVEL 29 MMOL/L (20-31); CHLORIDE LEVEL 108 MMOL/L (98-107); CREATININE FOR GFR 1.04 MG/DL (0.70-1.30); GLOMERULAR FILTRATION RATE > 60.0 (>56); GLUCOSE, FASTING 95 MG/DL (60-100); POTASSIUM SERUM 4.7 MMOL/L (3.5-5.1); SODIUM LEVEL 140 MMOL/L (136-145)
== END ==
LOC: M WUC 09:44
PROVIDERS: ATTEND Internal Medicine Rheumatology
DX: M05.79 Rheumatoid arthritis with rheumatoid factor of multiple sites without organ or systems involvement (principal); R76.8 Other specified abnormal immunological findings in serum; Z79.899 Other long term (current) drug therapy; R79.89 Other specified abnormal findings of blood chemistry; M79.675 Pain in left toe(s)

== ENCOUNTER → 2023-01-07 | Outpatient (CLI) | payer OTHER ==
[~2023-01-07] MED LIST changes: +NORCO, ANEXSIA 5/325MG TABLET (HYDROcodone/ACETAMINOPHEN) As Ordered ONE; +TRIAMCINOLONE ACETONIDE SUSP 40MG/ML 1ML VIAL As Ordered ONE; +diazePAM 2 MG TAB As Ordered ONE
== END ==
LOC: M PAIN 14:30
PROVIDERS: ATTEND Anesthesiology
DX: M79.12 Myalgia of auxiliary muscles, head and neck (principal); M06.9 Rheumatoid arthritis, unspecified; F32.A Depression, unspecified; G43.909 Migraine, unspecified, not intractable, without status migrainosus; M54.2 Cervicalgia; F41.9 Anxiety disorder, unspecified; E55.9 Vitamin D deficiency, unspecified; Z86.16 Personal history of COVID-19; Z79.899 Other long term (current) drug therapy
CPT/HCPCS: 20552; J0665; J3301

== ENCOUNTER → 2023-02-06 | Outpatient (CLI) | payer OTHER ==
[~2023-02-06] MED LIST changes: -NORCO, ANEXSIA 5/325MG TABLET (HYDROcodone/ACETAMINOPHEN) As Ordered ONE; -TRIAMCINOLONE ACETONIDE SUSP 40MG/ML 1ML VIAL As Ordered ONE; -diazePAM 2 MG TAB As Ordered ONE
[2023-02-06 17:25] LABS: BASO % 0.6 % (0.0-1.0); C REACTIVE PROTEIN QUANTITATIV < 0.40 MG/DL (<1.0); EOS # 0.2 10^3/uL (0.0-0.5); EOS % 3.4 % (0.0-3.0); HEMATOCRIT 42.2 % (42.0-52.0); HEMOGLOBIN 14.2 g/dl (13.5-17.5); LYMPH # 2.5 10^3/uL (1.5-5.0); LYMPH % 36.4 % (24.0-44.0); MEAN CORPUSCULAR HEMOGLOBIN 32.4 pg (27.0-33.0); MEAN CORPUSCULAR HGB CONC 33.6 g/dl (32.0-36.5); MEAN CORPUSCULAR VOLUME 96.3 fl (80.0-96.0); MONO # 0.6 10^3/uL (0.0-0.8); MONO % 8.9 % (2.0-8.0); NEUTROPHILS # 3.4 10^3/uL (1.5-8.5); NEUTROPHILS % 50.4 % (36.0-66.0); PLATELET COUNT, AUTOMATED 175 10^3/uL (150-450); RED BLOOD COUNT 4.38 10^6/uL (4.30-6.10); WHITE BLOOD COUNT 6.8 10^3/uL (4.0-10.0)
[2023-02-06 17:27] LABS: ALBUMIN 3.3 G/DL (3.2-5.2); ALKALINE PHOSPHATASE 90 U/L (46-116); ALT/SGPT 32 U/L (7.0-40); AST/SGOT 26 U/L (<34); BILIRUBIN,TOTAL 0.5 MG/DL (0.3-1.2); BLOOD UREA NITROGEN 15 MG/DL (9-23); CALCIUM LEVEL 8.5 MG/DL (8.3-10.6); CARBON DIOXIDE LEVEL 31 MMOL/L (20-31); CHLORIDE LEVEL 105 MMOL/L (98-107); CREATININE FOR GFR 1.12 MG/DL (0.70-1.30); GLOMERULAR FILTRATION RATE > 60.0 (>49); GLUCOSE, FASTING 82 MG/DL (74-106); POTASSIUM SERUM 3.9 MMOL/L (3.5-5.1); SODIUM LEVEL 142 MMOL/L (136-145); TOTAL PROTEIN 6.1 G/DL (5.7-8.2)
[2023-02-06 19:33] LABS: ERYTHROCYTE SEDIMENTATION RATE 7 mm/hr (0-20)
== END ==
LOC: M WUC 14:44
PROVIDERS: ATTEND Internal Medicine Rheumatology
DX: M05.79 Rheumatoid arthritis with rheumatoid factor of multiple sites without organ or systems involvement (principal); R76.8 Other specified abnormal immunological findings in serum; Z79.899 Other long term (current) drug therapy; M79.675 Pain in left toe(s); R79.89 Other specified abnormal findings of blood chemistry

== ENCOUNTER 2023-02-17 11:44 | Observation (INO) | payer OTHER ==
[~2023-02-17] VITALS: Ht 177.8 cm; Wt 97.0 kg
[2023-02-17 13:43] LABS: BASO # 0.1 10^3/uL (0.0-0.2); BASO % 0.6 % (0.0-1.0); EOS # 0.2 10^3/uL (0.0-0.5); EOS % 2.3 % (0.0-3.0); HEMATOCRIT 44.4 % (42.0-52.0); HEMOGLOBIN 15.4 g/dl (13.5-17.5); LYMPH # 1.7 10^3/uL (1.5-5.0); LYMPH % 17.7 % (24.0-44.0); MEAN CORPUSCULAR HEMOGLOBIN 33.3 pg (27.0-33.0); MEAN CORPUSCULAR HGB CONC 34.7 g/dl (32.0-36.5); MEAN CORPUSCULAR VOLUME 95.9 fl (80.0-96.0); MONO # 0.8 10^3/uL (0.0-0.8); MONO % 8.5 % (2.0-8.0); NEUTROPHILS # 6.9 10^3/uL (1.5-8.5); NEUTROPHILS % 70.5 % (36.0-66.0); PLATELET COUNT, AUTOMATED 175 10^3/uL (150-450); RED BLOOD COUNT 4.63 10^6/uL (4.30-6.10); WHITE BLOOD COUNT 9.8 10^3/uL (4.0-10.0)
[2023-02-17 14:09] LABS: ALBUMIN 1.9 G/DL (3.2-5.2); ALKALINE PHOSPHATASE 82 U/L (46-116); ALT/SGPT 23 U/L (7.0-40); AST/SGOT 21 U/L (<34); BILIRUBIN,DIRECT 0.2 MG/DL (<0.4); BILIRUBIN,TOTAL 0.7 MG/DL (0.3-1.2); BLOOD UREA NITROGEN 14 MG/DL (9-23); CALCIUM LEVEL 8.6 MG/DL (8.3-10.6); CARBON DIOXIDE LEVEL 29 MMOL/L (20-31); CHLORIDE LEVEL 106 MMOL/L (98-107); CREATININE FOR GFR 1.17 MG/DL (0.70-1.30); GLOMERULAR FILTRATION RATE > 60.0 (>49); GLUCOSE, FASTING 93 MG/DL (74-106); SODIUM LEVEL 139 MMOL/L (136-145); TOTAL PROTEIN 6.4 G/DL (5.7-8.2)
[2023-02-17 14:11] LABS: THYROID STIMULATING HORMONE 3.476 uIU/ML (0.55-4.78)
[2023-02-17 14:16] LABS: RSV AMPLIFICATION NEGATIVE (NEGATIVE)
[2023-02-17] MEDS ORDERED: MED REC IN PROGRESS XX SCH (14:50)
[2023-02-17 15:13] LABS: CK-MB VALUE MASS < 1.0 NG/ML (<3.6)
[2023-02-17 15:14] LABS: CPK CREATINE PHOSPHOKINASE 55 U/L (46-171); MB/CK RELATIVE INDEX 1.81 (< OR =4)
[2023-02-17] MEDS ORDERED: MOM 30ML SUSPENSION UDC PO PRN (15:15)
[2023-02-17] MEDS ORDERED: ACETAMINOPHEN TAB 650MG DOSE (2X325MG) PO PRN (15:15)
[2023-02-17] MEDS ORDERED: MAALOX 30 ML SUSP *UDC PO PRN (15:15)
[2023-02-17] MEDS ORDERED: HOME MED LIST COMPLETE! XX SCH (15:35)
[2023-02-17 17:35] VITALS: BP 161/88; TEMP 97.1; O2SAT 100
[2023-02-17] MEDS: ENOXAPARIN 40MG/0.4ML SYRINGE (J1650 PER 10MG) SC SCH (18:14)
[2023-02-17 19:30] LABS: CK-MB VALUE MASS < 1.0 NG/ML (<3.6)
[2023-02-17 19:31] LABS: CPK CREATINE PHOSPHOKINASE 67 U/L (46-171); MB/CK RELATIVE INDEX 1.49 (< OR =4)
[2023-02-17 20:00] VITALS: BP 158/88; TEMP 97.3; O2SAT 98
[2023-02-17] MEDS: PARoxetine 20MG TABLET PO SCH (20:31)
[2023-02-17] MEDS: DOCUSATE SODIUM 100MG CAPSULE PO SCH (20:31)
[2023-02-17] MEDS: FOLIC ACID 1MG TAB PO SCH (20:31)
[2023-02-17 22:20] LABS: CK-MB VALUE MASS < 1.0 NG/ML (<3.6)
[2023-02-17 22:21] LABS: CPK CREATINE PHOSPHOKINASE 101 U/L (46-171); MB/CK RELATIVE INDEX 0.99 (< OR =4)
[2023-02-18] VITALS: BP 150/90; TEMP 96.7; O2SAT 98
[2023-02-18 04:00] VITALS: BP 156/75; TEMP 96.5; O2SAT 97
[2023-02-18 05:16] LABS: BASO # 0.1 10^3/uL (0.0-0.2); BASO % 0.8 % (0.0-1.0); EOS # 0.3 10^3/uL (0.0-0.5); EOS % 4.3 % (0.0-3.0); HEMATOCRIT 41.4 % (42.0-52.0); HEMOGLOBIN 14.3 g/dl (13.5-17.5); LYMPH # 2.8 10^3/uL (1.5-5.0); LYMPH % 35.8 % (24.0-44.0); MEAN CORPUSCULAR HEMOGLOBIN 32.9 pg (27.0-33.0); MEAN CORPUSCULAR HGB CONC 34.5 g/dl (32.0-36.5); MEAN CORPUSCULAR VOLUME 95.2 fl (80.0-96.0); MONO # 0.8 10^3/uL (0.0-0.8); MONO % 9.8 % (2.0-8.0); NEUTROPHILS # 3.8 10^3/uL (1.5-8.5); NEUTROPHILS % 48.9 % (36.0-66.0); PLATELET COUNT, AUTOMATED 152 10^3/uL (150-450); RED BLOOD COUNT 4.35 10^6/uL (4.30-6.10); WHITE BLOOD COUNT 7.7 10^3/uL (4.0-10.0)
[2023-02-18 05:48] LABS: ALKALINE PHOSPHATASE 75 U/L (46-116); ALT/SGPT 18 U/L (7.0-40); AST/SGOT 17 U/L (<34); BILIRUBIN,TOTAL 0.5 MG/DL (0.3-1.2); BLOOD UREA NITROGEN 14 MG/DL (9-23); CALCIUM LEVEL 8.5 MG/DL (8.3-10.6); CARBON DIOXIDE LEVEL 29 MMOL/L (20-31); CHLORIDE LEVEL 109 MMOL/L (98-107); CREATININE FOR GFR 1.14 MG/DL (0.70-1.30); GLOMERULAR FILTRATION RATE > 60.0 (>49); GLUCOSE, FASTING 103 MG/DL (74-106); MAGNESIUM LEVEL 1.9 MG/DL (1.8-2.4); POTASSIUM SERUM 4.1 MMOL/L (3.5-5.1); SODIUM LEVEL 141 MMOL/L (136-145); TOTAL PROTEIN 5.5 G/DL (5.7-8.2)
[2023-02-18 08:09] VITALS: BP 164/82; TEMP 97.3; O2SAT 98
[2023-02-18] MEDS: ENOXAPARIN 40MG/0.4ML SYRINGE (J1650 PER 10MG) SC SCH (10:08)
[2023-02-18] MEDS: FOLIC ACID 1MG TAB PO SCH (10:08)
[2023-02-18] MEDS: DOCUSATE SODIUM 100MG CAPSULE PO SCH ×2 (10:08→19:58)
[2023-02-18] MEDS: amLODIPine 5 MG TAB PO SCH (10:09)
[2023-02-18 16:01] VITALS: BP 145/73; TEMP 97.1; O2SAT 99
[2023-02-18] MEDS: PARoxetine 20MG TABLET PO SCH (19:58)
[2023-02-19] VITALS: BP 156/74; TEMP 97.4; O2SAT 98
[2023-02-19 05:03] LABS: BASO # 0.1 10^3/uL (0.0-0.2); BASO % 0.8 % (0.0-1.0); EOS # 0.3 10^3/uL (0.0-0.5); EOS % 4.4 % (0.0-3.0); HEMATOCRIT 42.6 % (42.0-52.0); HEMOGLOBIN 14.2 g/dl (13.5-17.5); LYMPH # 2.6 10^3/uL (1.5-5.0); LYMPH % 36.4 % (24.0-44.0); MEAN CORPUSCULAR HEMOGLOBIN 31.9 pg (27.0-33.0); MEAN CORPUSCULAR HGB CONC 33.3 g/dl (32.0-36.5); MEAN CORPUSCULAR VOLUME 95.7 fl (80.0-96.0); MONO # 0.8 10^3/uL (0.0-0.8); MONO % 10.6 % (2.0-8.0); NEUTROPHILS # 3.4 10^3/uL (1.5-8.5); NEUTROPHILS % 47.2 % (36.0-66.0); PLATELET COUNT, AUTOMATED 162 10^3/uL (150-450); RED BLOOD COUNT 4.45 10^6/uL (4.30-6.10); WHITE BLOOD COUNT 7.2 10^3/uL (4.0-10.0)
[2023-02-19 05:28] LABS: ALBUMIN 3.1 G/DL (3.2-5.2); ALKALINE PHOSPHATASE 79 U/L (46-116); ALT/SGPT 21 U/L (7.0-40); AST/SGOT 20 U/L (<34); BILIRUBIN,TOTAL 0.6 MG/DL (0.3-1.2); BLOOD UREA NITROGEN 15 MG/DL (9-23); CALCIUM LEVEL 8.5 MG/DL (8.3-10.6); CARBON DIOXIDE LEVEL 31 MMOL/L (20-31); CHLORIDE LEVEL 110 MMOL/L (98-107); GLOMERULAR FILTRATION RATE > 60.0 (>49); GLUCOSE, FASTING 93 MG/DL (74-106); MAGNESIUM LEVEL 1.9 MG/DL (1.8-2.4); POTASSIUM SERUM 4.7 MMOL/L (3.5-5.1); SODIUM LEVEL 144 MMOL/L (136-145); TOTAL PROTEIN 5.7 G/DL (5.7-8.2)
[2023-02-19 07:14] VITALS: BP 130/67; TEMP 98.3; O2SAT 100
[2023-02-19] MEDS: DOCUSATE SODIUM 100MG CAPSULE PO SCH (09:00)
[2023-02-19] MEDS: ENOXAPARIN 40MG/0.4ML SYRINGE (J1650 PER 10MG) SC SCH (09:00)
[2023-02-19 09:25] VITALS: BP 130/67
[2023-02-19] MEDS: amLODIPine 5 MG TAB PO SCH (09:25)
[2023-02-19] MEDS: FOLIC ACID 1MG TAB PO SCH (09:25)
[2023-02-19] MEDS ORDERED: AMLO1TAB24 PO (11:15)
== END 2023-02-19 12:47 | disposition home or self-care (01) ==
LOC: M ED 11:44 → INTOOBSV 15:15 → M ED INP 15:15 → ENRESERV 15:29 → M PCU 17:31
PROVIDERS: ADMIT Internal Medicine; ATTEND Internal Medicine
DX: R55 Syncope and collapse (principal); R93.0 Abnormal findings on diagnostic imaging of skull and head, not elsewhere classified; R00.1 Bradycardia, unspecified; M54.2 Cervicalgia; G89.29 Other chronic pain; R51.9 Headache, unspecified; M06.9 Rheumatoid arthritis, unspecified; G43.909 Migraine, unspecified, not intractable, without status migrainosus; F41.9 Anxiety disorder, unspecified; F32.A Depression, unspecified; E55.9 Vitamin D deficiency, unspecified; Z86.16 Personal history of COVID-19; K21.9 Gastro-esophageal reflux disease without esophagitis; Z79.899 Other long term (current) drug therapy
CPT/HCPCS: 36415; 70450; 70551; 80047; 80048; 80053; 80076; 82550; 82553; 83735; 84443; 84484; 85025; 86618; 87631; 93005; 93041; 93306; 93880; 94760; 95819; 96372; 97161; 99285; J1650

== ENCOUNTER 2023-03-17 10:38 | Emergency (ER) | payer OTHER ==
[~2023-03-17 10:38] MED LIST changes: -HOLTER MONITOR XX
[2023-03-17 11:35] LABS: BASO # 0.1 10^3/uL (0.0-0.2); BASO % 0.8 % (0.0-1.0); EOS # 0.2 10^3/uL (0.0-0.5); EOS % 3.9 % (0.0-3.0); HEMATOCRIT 43.7 % (42.0-52.0); HEMOGLOBIN 15.5 g/dl (13.5-17.5); LYMPH # 1.9 10^3/uL (1.5-5.0); LYMPH % 30.1 % (24.0-44.0); MEAN CORPUSCULAR HEMOGLOBIN 32.8 pg (27.0-33.0); MEAN CORPUSCULAR HGB CONC 35.5 g/dl (32.0-36.5); MEAN CORPUSCULAR VOLUME 92.4 fl (80.0-96.0); MONO # 0.6 10^3/uL (0.0-0.8); MONO % 9.3 % (2.0-8.0); NEUTROPHILS # 3.4 10^3/uL (1.5-8.5); NEUTROPHILS % 55.4 % (36.0-66.0); PLATELET COUNT, AUTOMATED 174 10^3/uL (150-450); RED BLOOD COUNT 4.73 10^6/uL (4.30-6.10); WHITE BLOOD COUNT 6.2 10^3/uL (4.0-10.0)
[2023-03-17 11:48] LABS: INR 1.02; PROTHROMBIN TIME 13.1 SECONDS (12.5-14.5)
[2023-03-17 12:02] LABS: BLOOD UREA NITROGEN 14 MG/DL (9-23); CALCIUM LEVEL 8.8 MG/DL (8.3-10.6); CARBON DIOXIDE LEVEL 26 MMOL/L (20-31); CHLORIDE LEVEL 104 MMOL/L (98-107); CK-MB VALUE MASS < 1.0 NG/ML (<3.6); CREATININE FOR GFR 1.12 MG/DL (0.70-1.30); GLOMERULAR FILTRATION RATE > 60.0 (>49); GLUCOSE, FASTING 102 MG/DL (74-106); MAGNESIUM LEVEL 1.9 MG/DL (1.8-2.4); POTASSIUM SERUM 4.2 MMOL/L (3.5-5.1); SODIUM LEVEL 140 MMOL/L (136-145)
[2023-03-17 12:05] LABS: FREE T4 0.95 NG/DL (0.89-1.76); THYROID STIMULATING HORMONE 3.676 uIU/ML (0.55-4.78)
[2023-03-17 12:21] LABS: CPK CREATINE PHOSPHOKINASE 67 U/L (46-171); MB/CK RELATIVE INDEX 1.49 (< OR =4)
[2023-03-17] MEDS ORDERED: amLODIPine 5 MG TAB PO ONE (12:40)
[2023-03-17 12:54] LABS: CK-MB VALUE MASS < 1.0 NG/ML (<3.6)
[2023-03-17 13:12] VITALS: BP 154/77
[2023-03-17 13:12] LABS: CPK CREATINE PHOSPHOKINASE 65 U/L (46-171); MB/CK RELATIVE INDEX 1.53 (< OR =4)
[2023-03-17] MEDS ORDERED: ISOVUE-370 76% 100ML VIAL As Ordered ONE (14:25)
[2023-03-17] MEDS ORDERED: HOLTER MONITOR XX (15:04)
[2023-03-17 15:30] VITALS: BP 160/81; TEMP 96.7; O2SAT 98
== END 2023-03-17 15:40 | disposition home or self-care (01) ==
LOC: M ED 10:38
DX: R55 Syncope and collapse (principal); G89.29 Other chronic pain; M54.2 Cervicalgia; M06.9 Rheumatoid arthritis, unspecified; Z79.899 Other long term (current) drug therapy
CPT/HCPCS: 70450; 71045; 74177; 80048; 82550; 82553; 83735; 84439; 84443; 84484; 85025; 85610; 87635; 93005; 93041; 94760; 99285; Q9967

== ENCOUNTER → 2023-03-17 | Outpatient (CLI) | payer OTHER ==
[~2023-03-17] MED LIST changes: +AMLO1TAB24 PO; +HOLTER MONITOR XX
== END ==
LOC: M EKG 15:41
PROVIDERS: ATTEND Emergency Medicine
DX: R00.1 Bradycardia, unspecified (principal)

== ENCOUNTER → 2023-04-23 | Outpatient (CLI) | payer OTHER ==
[~2023-04-23] MED LIST changes: +HOLTER MONITOR XX
== END ==
LOC: M PAIN 16:30
PROVIDERS: ATTEND Nurse Practitioner Family
DX: M47.812 Spondylosis without myelopathy or radiculopathy, cervical region (principal); G89.29 Other chronic pain; Z86.16 Personal history of COVID-19; Z80.42 Family history of malignant neoplasm of prostate; Z79.899 Other long term (current) drug therapy

== ENCOUNTER → 2023-06-07 | Outpatient (CLI) | payer OTHER ==
[2023-06-07 18:45] LABS: BASO # 0.1 10^3/uL (0.0-0.2); BASO % 0.9 % (0.0-1.0); EOS # 0.5 10^3/uL (0.0-0.5); EOS % 5.8 % (0.0-3.0); HEMATOCRIT 43.6 % (42.0-52.0); HEMOGLOBIN 14.6 g/dl (13.5-17.5); MEAN CORPUSCULAR HEMOGLOBIN 32.1 pg (27.0-33.0); MEAN CORPUSCULAR HGB CONC 33.5 g/dl (32.0-36.5); MEAN CORPUSCULAR VOLUME 95.8 fl (80.0-96.0); MONO # 0.8 10^3/uL (0.0-0.8); MONO % 9.8 % (2.0-8.0); NEUTROPHILS # 3.6 10^3/uL (1.5-8.5); NEUTROPHILS % 45.2 % (36.0-66.0); PLATELET COUNT, AUTOMATED 179 10^3/uL (150-450); RED BLOOD COUNT 4.55 10^6/uL (4.30-6.10)
[2023-06-07 19:01] LABS: URIC ACID 4.8 MG/DL (3.7-9.2)
[2023-06-07 19:02] LABS: C REACTIVE PROTEIN QUANTITATIV < 0.40 MG/DL (<1.0)
[2023-06-07 19:04] LABS: ALBUMIN 3.5 G/DL (3.2-5.2); ALKALINE PHOSPHATASE 92 U/L (46-116); ALT/SGPT 31 U/L (7.0-40); AST/SGOT 21 U/L (<34); BILIRUBIN,TOTAL 0.5 MG/DL (0.3-1.2); BLOOD UREA NITROGEN 12 MG/DL (9-23); CALCIUM LEVEL 8.1 MG/DL (8.3-10.6); CARBON DIOXIDE LEVEL 30 MMOL/L (20-31); CHLORIDE LEVEL 106 MMOL/L (98-107); CREATININE FOR GFR 1.06 MG/DL (0.70-1.30); GLOMERULAR FILTRATION RATE > 60.0 (>49); GLUCOSE, FASTING 94 MG/DL (74-106); POTASSIUM SERUM 3.7 MMOL/L (3.5-5.1); SODIUM LEVEL 141 MMOL/L (136-145); TOTAL PROTEIN 6.5 G/DL (5.7-8.2)
[2023-06-07 19:06] LABS: ERYTHROCYTE SEDIMENTATION RATE 8 mm/hr (0-20)
== END ==
LOC: M WUC 14:11
PROVIDERS: ATTEND Internal Medicine Rheumatology
DX: M05.79 Rheumatoid arthritis with rheumatoid factor of multiple sites without organ or systems involvement (principal); R76.8 Other specified abnormal immunological findings in serum; Z79.899 Other long term (current) drug therapy; M79.675 Pain in left toe(s); R79.89 Other specified abnormal findings of blood chemistry

== ENCOUNTER → 2023-07-01 | Outpatient (CLI) | payer OTHER | LOC: M PAIN 10:45 | PROVIDERS: ATTEND Nurse Practitioner Family | DX: M54.81 Occipital neuralgia (principal); G89.29 Other chronic pain; M54.2 Cervicalgia; M06.9 Rheumatoid arthritis, unspecified; F32.A Depression, unspecified; G43.909 Migraine, unspecified, not intractable, without status migrainosus; F41.9 Anxiety disorder, unspecified; E55.9 Vitamin D deficiency, unspecified; Z79.899 Other long term (current) drug therapy ==

== ENCOUNTER → 2023-08-19 | Outpatient (CLI) | payer OTHER ==
[2023-08-19 17:06] LABS: BASO # 0.1 10^3/uL (0.0-0.2); EOS # 0.5 10^3/uL (0.0-0.5); EOS % 6.7 % (0.0-3.0); HEMATOCRIT 41.8 % (42.0-52.0); HEMOGLOBIN 14.5 g/dl (13.5-17.5); LYMPH # 2.2 10^3/uL (1.5-5.0); LYMPH % 33.2 % (24.0-44.0); MEAN CORPUSCULAR HEMOGLOBIN 32.7 pg (27.0-33.0); MEAN CORPUSCULAR HGB CONC 34.7 g/dl (32.0-36.5); MEAN CORPUSCULAR VOLUME 94.1 fl (80.0-96.0); MONO # 0.7 10^3/uL (0.0-0.8); MONO % 10.4 % (2.0-8.0); NEUTROPHILS # 3.2 10^3/uL (1.5-8.5); NEUTROPHILS % 48.4 % (36.0-66.0); PLATELET COUNT, AUTOMATED 195 10^3/uL (150-450); RED BLOOD COUNT 4.44 10^6/uL (4.30-6.10); WHITE BLOOD COUNT 6.7 10^3/uL (4.0-10.0)
[2023-08-19 17:15] LABS: ERYTHROCYTE SEDIMENTATION RATE 5 mm/hr (0-20)
[2023-08-19 17:31] LABS: URIC ACID 5.9 MG/DL (3.7-9.2)
[2023-08-19 17:32] LABS: C REACTIVE PROTEIN QUANTITATIV < 0.40 MG/DL (<1.0)
[2023-08-19 17:34] LABS: ALBUMIN 3.4 G/DL (3.2-5.2); ALKALINE PHOSPHATASE 79 U/L (46-116); ALT/SGPT 25 U/L (7.0-40); AST/SGOT 19 U/L (<34); BILIRUBIN,TOTAL 0.4 MG/DL (0.3-1.2); BLOOD UREA NITROGEN 12 MG/DL (9-23); CALCIUM LEVEL 8.3 MG/DL (8.3-10.6); CARBON DIOXIDE LEVEL 30 MMOL/L (20-31); CHLORIDE LEVEL 108 MMOL/L (98-107); CREATININE FOR GFR 1.09 MG/DL (0.70-1.30); GLOMERULAR FILTRATION RATE > 60.0 (>49); GLUCOSE, FASTING 95 MG/DL (74-106); POTASSIUM SERUM 4.2 MMOL/L (3.5-5.1); SODIUM LEVEL 143 MMOL/L (136-145); TOTAL PROTEIN 6.2 G/DL (5.7-8.2)
== END ==
LOC: M LAB 16:35
PROVIDERS: ATTEND Internal Medicine Rheumatology
DX: M05.79 Rheumatoid arthritis with rheumatoid factor of multiple sites without organ or systems involvement (principal); R76.8 Other specified abnormal immunological findings in serum; Z79.899 Other long term (current) drug therapy; M79.675 Pain in left toe(s); R79.89 Other specified abnormal findings of blood chemistry

== ENCOUNTER → 2023-08-22 | Outpatient (REF) | payer OTHER | LOC: M SFHCRHEU 15:49 | PROVIDERS: ATTEND Internal Medicine Rheumatology | DX: M05.79 Rheumatoid arthritis with rheumatoid factor of multiple sites without organ or systems involvement (principal); R76.8 Other specified abnormal immunological findings in serum; Z79.899 Other long term (current) drug therapy; M79.675 Pain in left toe(s); R79.89 Other specified abnormal findings of blood chemistry; Z53.9 Procedure and treatment not carried out, unspecified reason ==

== ENCOUNTER → 2023-09-24 | Outpatient (CLI) | payer OTHER ==
[~2023-09-24] MED LIST changes: +NORCO, ANEXSIA 5/325MG TABLET (HYDROcodone/ACETAMINOPHEN) As Ordered ONE; +TRIAMCINOLONE ACETONIDE SUSP 40MG/ML 1ML VIAL As Ordered ONE; +diazePAM 5MG TABLET As Ordered ONE
== END ==
LOC: M PAIN 13:00
PROVIDERS: ATTEND Anesthesiology
DX: M54.81 Occipital neuralgia (principal); M06.9 Rheumatoid arthritis, unspecified; F32.A Depression, unspecified; M54.2 Cervicalgia; G89.29 Other chronic pain; G43.909 Migraine, unspecified, not intractable, without status migrainosus; F41.9 Anxiety disorder, unspecified; E55.9 Vitamin D deficiency, unspecified; Z79.899 Other long term (current) drug therapy
CPT/HCPCS: 64450; J0665; J3301

== ENCOUNTER → 2023-10-10 | Outpatient (CLI) | payer OTHER ==
[~2023-10-10] MED LIST changes: -NORCO, ANEXSIA 5/325MG TABLET (HYDROcodone/ACETAMINOPHEN) As Ordered ONE; -TRIAMCINOLONE ACETONIDE SUSP 40MG/ML 1ML VIAL As Ordered ONE; -diazePAM 5MG TABLET As Ordered ONE
== END ==
LOC: M SOG 07:56
PROVIDERS: ATTEND Orthopaedic Surgery
DX: M54.2 Cervicalgia (principal)

== ENCOUNTER → 2023-10-25 | Outpatient (CLI) | payer OTHER ==
[~2023-10-25] MED LIST changes: +ONDA-282 PO; -ONDA4TAB6 PO
== END ==
LOC: M PAIN 14:00
PROVIDERS: ATTEND Nurse Practitioner Family
DX: M47.812 Spondylosis without myelopathy or radiculopathy, cervical region (principal); M06.9 Rheumatoid arthritis, unspecified; F32.A Depression, unspecified; M54.2 Cervicalgia; G89.29 Other chronic pain; G43.909 Migraine, unspecified, not intractable, without status migrainosus; F41.9 Anxiety disorder, unspecified; E55.9 Vitamin D deficiency, unspecified; Z79.899 Other long term (current) drug therapy

== ENCOUNTER → 2023-11-08 | Outpatient (CLI) | payer OTHER | LOC: M PAIN 15:30 | PROVIDERS: ATTEND Nurse Practitioner Family | DX: M47.812 Spondylosis without myelopathy or radiculopathy, cervical region (principal); M06.9 Rheumatoid arthritis, unspecified; G43.909 Migraine, unspecified, not intractable, without status migrainosus; Z79.899 Other long term (current) drug therapy; Z79.620 Long term (current) use of immunosuppressive biologic; Z79.631 Long term (current) use of antimetabolite agent ==

== ENCOUNTER → 2023-11-25 | Outpatient (CLI) | payer OTHER ==
[2023-11-25 17:37] LABS: BASO # 0.1 10^3/uL (0.0-0.2); BASO % 0.7 % (0.0-1.0); EOS # 0.5 10^3/uL (0.0-0.5); EOS % 6.2 % (0.0-3.0); HEMATOCRIT 44.8 % (42.0-52.0); HEMOGLOBIN 14.8 g/dl (13.5-17.5); LYMPH # 2.6 10^3/uL (1.5-5.0); LYMPH % 31.6 % (24.0-44.0); MEAN CORPUSCULAR HEMOGLOBIN 32.2 pg (27.0-33.0); MEAN CORPUSCULAR VOLUME 97.4 fl (80.0-96.0); MONO # 0.8 10^3/uL (0.0-0.8); MONO % 9.6 % (2.0-8.0); NEUTROPHILS # 4.2 10^3/uL (1.5-8.5); NEUTROPHILS % 51.5 % (36.0-66.0); PLATELET COUNT, AUTOMATED 195 10^3/uL (150-450); WHITE BLOOD COUNT 8.1 10^3/uL (4.0-10.0)
[2023-11-25 18:01] LABS: ALBUMIN 3.5 G/DL (3.2-5.2); ALKALINE PHOSPHATASE 84 U/L (46-116); ALT/SGPT 25 U/L (7.0-40); AST/SGOT 17 U/L (<34); BILIRUBIN,TOTAL 0.7 MG/DL (0.3-1.2); BLOOD UREA NITROGEN 13 MG/DL (9-23); CALCIUM LEVEL 8.6 MG/DL (8.3-10.6); CARBON DIOXIDE LEVEL 31 MMOL/L (20-31); CHLORIDE LEVEL 108 MMOL/L (98-107); GLOMERULAR FILTRATION RATE > 60.0 (>49); GLUCOSE, FASTING 87 MG/DL (74-106); POTASSIUM SERUM 4.3 MMOL/L (3.5-5.1); SODIUM LEVEL 142 MMOL/L (136-145); TOTAL PROTEIN 6.4 G/DL (5.7-8.2)
[2023-11-25 18:20] LABS: ERYTHROCYTE SEDIMENTATION RATE 9 mm/hr (0-20)
== END ==
LOC: M WUC 11:31
PROVIDERS: ATTEND Internal Medicine Rheumatology
DX: M05.79 Rheumatoid arthritis with rheumatoid factor of multiple sites without organ or systems involvement (principal); R76.8 Other specified abnormal immunological findings in serum; Z79.899 Other long term (current) drug therapy; M79.675 Pain in left toe(s); R79.89 Other specified abnormal findings of blood chemistry

== ENCOUNTER → 2024-02-10 | Outpatient (CLI) | payer OTHER | LOC: M WUC 14:24 | PROVIDERS: ATTEND Physician Assistant | DX: M79.672 Pain in left foot (principal); M77.32 Calcaneal spur, left foot ==

== ENCOUNTER → 2024-03-27 | Outpatient (CLI) | payer OTHER ==
[~2024-03-27] MED LIST changes: +ADAL40PE SC; +PARO40TA2 PO
[2024-03-27 11:54] LABS: BASO # 0.1 10^3/uL (0.0-0.2); BASO % 1.2 % (0.0-1.0); EOS # 0.7 10^3/uL (0.0-0.5); EOS % 10.7 % (0.0-3.0); HEMOGLOBIN 15.4 g/dl (13.5-17.5); LYMPH # 1.8 10^3/uL (1.5-5.0); LYMPH % 28.6 % (24.0-44.0); MEAN CORPUSCULAR HEMOGLOBIN 32.4 pg (27.0-33.0); MEAN CORPUSCULAR HGB CONC 34.2 g/dl (32.0-36.5); MEAN CORPUSCULAR VOLUME 94.5 fl (80.0-96.0); MONO # 0.8 10^3/uL (0.0-0.8); MONO % 12.1 % (2.0-8.0); NEUTROPHILS % 47.1 % (36.0-66.0); PLATELET COUNT, AUTOMATED 184 10^3/uL (150-450); RED BLOOD COUNT 4.76 10^6/uL (4.30-6.10); WHITE BLOOD COUNT 6.4 10^3/uL (4.0-10.0)
[2024-03-27 12:17] LABS: BLOOD UREA NITROGEN 12 MG/DL (9-23); CALCIUM LEVEL 9.1 MG/DL (8.3-10.6); CARBON DIOXIDE LEVEL 32 MMOL/L (20-31); CHLORIDE LEVEL 108 MMOL/L (98-107); CREATININE FOR GFR 1.11 MG/DL (0.70-1.30); GLOMERULAR FILTRATION RATE > 60.0 (>49); GLUCOSE, FASTING 97 MG/DL (74-106); POTASSIUM SERUM 4.2 MMOL/L (3.5-5.1); SODIUM LEVEL 141 MMOL/L (136-145)
== END ==
LOC: M EKG 10:46
PROVIDERS: ATTEND Podiatrist
DX: M79.672 Pain in left foot (principal)

== ENCOUNTER 2024-04-10 07:22 | Day surgery (SDC) | payer OTHER ==
[~2024-04-10] VITALS: Ht 177.8 cm; Wt 89.2 kg
[2024-04-10] MEDS ORDERED: KETOROLAC 60MG 2ML VIAL As Ordered ONE (08:11)
[2024-04-10] MEDS ORDERED: LIDOCAINE 2% 100MG/5ML SDV (FOR ANES.) As Ordered ONE (08:11)
[2024-04-10] MEDS ORDERED: ONDANSETRON 4MG 2ML VIAL As Ordered ONE (08:11)
[2024-04-10] MEDS ORDERED: propofoL 200 MG/20 ML VIAL As Ordered ONE (08:11)
[2024-04-10] MEDS ORDERED: GLYCOPYRROLATE INJ 0.2 MG/ML 2 ML VIAL As Ordered ONE (08:16)
[2024-04-10] MEDS ORDERED: ACETAMINOPHEN 1000MG/100ML IV BAG As Ordered ONE (08:16)
[2024-04-10] MEDS ORDERED: fentaNYL 100 MCG/2 ML INJECTION As Ordered ONE (08:18)
[2024-04-10] MEDS ORDERED: MIDAZOLAM INJ 2MG/2ML VIAL As Ordered ONE (08:18)
[2024-04-10] MEDS ORDERED: dexmedeTOMIDine (4MCG/ML)200MCG/50ML BTL (PRECEDEX) As Ordered ONE (09:48)
[2024-04-10] MEDS: ceFAZolin SOD 2 GM in IV 1 EA IV ONE (09:53)
[2024-04-10] MEDS: LIDOCAINE 2% MDV 20ML VIAL As Ordered ONE (10:00)
[2024-04-10] MEDS: GENTAMICIN SULF 80MG/2ML VIAL As Ordered ONE (10:20)
[2024-04-10] MEDS ORDERED: ONDANSETRON 4MG 2ML VIAL IV PRN (10:45)
[2024-04-10] MEDS ORDERED: diphenhydrAMINE 50MG/ML VIAL IV PRN (10:45)
[2024-04-10] MEDS ORDERED: MEPERIDINE 25 MG/ML 1ML VIAL IV PRN (10:45)
[2024-04-10] MEDS ORDERED: METOCLOPRAMIDE INJ 10MG/2ML VIAL IV PRN (10:45)
[2024-04-10] MEDS ORDERED: fentaNYL 100 MCG/2 ML INJECTION IV PRN (10:45)
[2024-04-10] MEDS ORDERED: oxyCODONE 5MG TAB PO PRN (10:45)
[2024-04-10 11:18] VITALS: BP 135/76; TEMP 96.8; O2SAT 96
== END 2024-04-10 11:50 | disposition home or self-care (01) ==
LOC: M SDC 07:22
PROVIDERS: ATTEND Podiatrist
DX: M72.2 Plantar fascial fibromatosis (principal); Z79.899 Other long term (current) drug therapy
CPT/HCPCS: 29893; J0131; J0665; J0690; J1100; J1580; J1596; J1885; J2250; J2405

== ENCOUNTER → 2024-05-06 | Outpatient (CLI) | payer OTHER ==
[2024-05-06 20:32] LABS: HEMATOCRIT 45.5 % (42.0-52.0); HEMOGLOBIN 15.9 g/dl (13.5-17.5); MEAN CORPUSCULAR HEMOGLOBIN 33.7 pg (27.0-33.0); MEAN CORPUSCULAR HGB CONC 34.9 g/dl (32.0-36.5); MEAN CORPUSCULAR VOLUME 96.4 fl (80.0-96.0); PLATELET COUNT, AUTOMATED 245 10^3/uL (150-450); RED BLOOD COUNT 4.72 10^6/uL (4.30-6.10); WHITE BLOOD COUNT 8.4 10^3/uL (4.0-10.0)
[2024-05-06 20:41] LABS: ERYTHROCYTE SEDIMENTATION RATE 8 mm/hr (0-20)
[2024-05-06 21:03] LABS: ALBUMIN 3.5 G/DL (3.2-5.2); ALKALINE PHOSPHATASE 83 U/L (40-129); ALT/SGPT 35 U/L (7.0-40); AST/SGOT 20 U/L (<34); BILIRUBIN,TOTAL 0.5 MG/DL (0.3-1.2); BLOOD UREA NITROGEN 12 MG/DL (9-23); C REACTIVE PROTEIN QUANTITATIV < 0.50 MG/DL (<1.0); CALCIUM LEVEL 9.1 MG/DL (8.3-10.6); CARBON DIOXIDE LEVEL 31 MMOL/L (20-31); CHLORIDE LEVEL 105 MMOL/L (98-107); CREATININE FOR GFR 1.03 MG/DL (0.70-1.30); GLOMERULAR FILTRATION RATE > 60.0 (>49); GLUCOSE, FASTING 84 MG/DL (74-106); POTASSIUM SERUM 4.2 MMOL/L (3.5-5.1); SODIUM LEVEL 144 MMOL/L (136-145); TOTAL PROTEIN 6.9 G/DL (5.7-8.2)
== END ==
LOC: M WUC 15:07
PROVIDERS: ATTEND Internal Medicine Rheumatology
DX: M05.79 Rheumatoid arthritis with rheumatoid factor of multiple sites without organ or systems involvement (principal)

== ENCOUNTER → 2024-10-02 | Outpatient (CLI) | payer OTHER ==
[~2024-10-02] MED LIST changes: +LIDO1ADH93 TD; -LIDO5DIS41 TD
[2024-10-02 14:22] LABS: BASO # 0.1 10^3/uL (0.0-0.2); BASO % 1.1 % (0.0-1.0); EOS # 0.6 10^3/uL (0.0-0.5); EOS % 7.5 % (0.0-3.0); HEMATOCRIT 41.7 % (42.0-52.0); HEMOGLOBIN 13.9 g/dl (13.5-17.5); LYMPH # 2.4 10^3/uL (1.5-5.0); LYMPH % 32.9 % (24.0-44.0); MEAN CORPUSCULAR HEMOGLOBIN 31.7 pg (27.0-33.0); MEAN CORPUSCULAR HGB CONC 33.3 g/dl (32.0-36.5); MONO # 0.7 10^3/uL (0.0-0.8); MONO % 10.1 % (2.0-8.0); NEUTROPHILS # 3.6 10^3/uL (1.5-8.5); NEUTROPHILS % 48.1 % (36.0-66.0); PLATELET COUNT, AUTOMATED 200 10^3/uL (150-450); RED BLOOD COUNT 4.39 10^6/uL (4.30-6.10); WHITE BLOOD COUNT 7.4 10^3/uL (4.0-10.0)
[2024-10-02 14:28] LABS: ERYTHROCYTE SEDIMENTATION RATE 6 mm/hr (0-20)
[2024-10-02 14:30] LABS: ALBUMIN 3.4 G/DL (3.2-5.2); BILIRUBIN,TOTAL 0.4 MG/DL (0.3-1.2); C REACTIVE PROTEIN QUANTITATIV 0.57 MG/DL (<1.0); CALCIUM LEVEL 8.8 MG/DL (8.3-10.6); CREATININE FOR GFR 0.99 MG/DL (0.70-1.30); GLOMERULAR FILTRATION RATE 86.7 (>49); TOTAL PROTEIN 6.3 G/DL (5.7-8.2)
== END ==
LOC: M WUC 12:12
PROVIDERS: ATTEND Internal Medicine Rheumatology
DX: M05.79 Rheumatoid arthritis with rheumatoid factor of multiple sites without organ or systems involvement (principal); R76.8 Other specified abnormal immunological findings in serum; Z79.899 Other long term (current) drug therapy